=== PATIENT | male | born 1955 | race Two or more races ===

== ENCOUNTER → 2023-10-14 | Outpatient (CLI) | payer OTHER ==
[2023-10-14 08:50] LABS: Urine Bacteria None Seen /hpf (None Seen)
[2023-10-14 08:56] LABS: Basophils # (auto) 0.2 10 ^3/uL (0-0.2); Basophils % (auto) 1.9 % (0.0-2.0); Eosinophils # (auto) 0.4 10 ^3/uL (0-0.8); Eosinophils % (auto) 4.3 % (0.0-7.0); Hemoglobin 12.7 g/dL (13.5-17.5); Lymphocytes # (auto) 2.2 10 ^3/uL (0.4-5.4); Lymphocytes % (auto) 24.1 % (10.0-50.0); Mean Corpuscular Hemoglobin 27.3 pg (28.0-32.0); Mean Corpuscular Hgb Conc. 32.6 g/dL (32.0-36.0); Mean Corpuscular Volume 83.6 fL (80.0-100.0); Monocytes # (auto) 0.7 10 ^3/uL (0-1.3); Monocytes % (auto) 7.5 % (0.0-12.0); Neutrophils # (auto) 5.6 10 ^3/uL (1.6-8.6); Neutrophils % (auto) 62.2 % (37.0-80.0); Nucleated Red Blood Cells % 0.1 %; Red Blood Cells 4.66 10^6/uL (4.5-5.90); White Blood Cell 9.1 10^3/uL (4.4-10.8)
[2023-10-14 09:16] LABS: Urine Blood 1+ /uL (Negative); Urine Clarity Clear (Clear); Urine Color Light-Yellow (Yellow); Urine Hyaline Cast FEW /lpf (0 - 2); Urine Protein, UAD 3+ (Negative); Urine Specific Gravity 1.017 (1.001-1.035); Urine Urobilinogen Normal (Negative); Urine WBC 1 /hpf (0 - 3); Urine pH 6.5 (5.0-9.0)
[2023-10-14 09:30] LABS: Alanine Aminotransferase 15 U/L (7-40); Albumin 3.9 g/dL (3.2-4.8); Alkaline Phosphatase 81 U/L (46-116); Anion Gap 7 (5-15); Aspartate Aminotransferase 19 U/L (13-40); Bilirubin, Total 0.7 mg/dL (0.2-1.0); Blood Urea Nitrogen 17 mg/dL (9-23); Calcium 9.1 mg/dL (8.5-10.1); Carbon Dioxide 28 mmol/L (20-30); Chloride 106 mmol/L (98-107); Cholesterol 122 mg/dL (< 200); Glucose 175 mg/dL (74-106); HDL Cholesterol 38 mg/dL (40-59); LDL Cholesterol 64 mg/dL (< 100); Potassium 3.6 mmol/L (3.5-5.1); Sodium 141 mmol/L (136-145); Total Protein 6.5 g/dL (5.7-8.2); Triglycerides 84 mg/dL (< 150)
== END | disposition home or self-care (01) ==
LOC: LAB 08:37
PROVIDERS: ATTEND Nurse Practitioner
DX: Z12.5 Encounter for screening for malignant neoplasm of prostate (principal); I10 Essential (primary) hypertension; E78.5 Hyperlipidemia, unspecified; R73.9 Hyperglycemia, unspecified
CPT/HCPCS: 36415; 80053; 80061; 81001; 83036; 84153; 84443; 85025

== ENCOUNTER → 2023-12-23 | Outpatient (CLI) | payer OTHER | END | disposition home or self-care (01) | LOC: XYW 10:25 | PROVIDERS: ATTEND Student in an Organized Health Care Education/Training Program | DX: I08.3 Combined rheumatic disorders of mitral, aortic and tricuspid valves (principal); I10 Essential (primary) hypertension; E11.65 Type 2 diabetes mellitus with hyperglycemia; Z86.73 Personal history of transient ischemic attack (TIA), and cerebral infarction without residual deficits | CPT/HCPCS: 93306 ==

== ENCOUNTER 2024-02-04 11:41 | Emergency (ER) | payer OTHER ==
[~2024-02-04] VITALS: Ht 165.1 cm; Wt 65.0 kg
[2024-02-04] MEDS: NITROGLYCERIN 0.4 MG SL TAB SL ONE (12:44)
[2024-02-04 13:23] LABS: Basophils # (auto) 0.1 10 ^3/uL (0-0.2); Basophils % (auto) 1.3 % (0.0-2.0); Eosinophils # (auto) 0.4 10 ^3/uL (0-0.8); Eosinophils % (auto) 4.5 % (0.0-7.0); Hematocrit 39.2 % (41.0-53.0); Hemoglobin 13.1 g/dL (13.5-17.5); Lymphocytes # (auto) 2.4 10 ^3/uL (0.4-5.4); Mean Corpuscular Hgb Conc. 33.5 g/dL (32.0-36.0); Mean Corpuscular Volume 83.3 fL (80.0-100.0); Monocytes # (auto) 0.6 10 ^3/uL (0-1.3); Monocytes % (auto) 7.4 % (0.0-12.0); Neutrophils # (auto) 4.8 10 ^3/uL (1.6-8.6); Neutrophils % (auto) 57.8 % (37.0-80.0); Nucleated Red Blood Cells % 0.2 %; Platelet Count (auto) 264 10^3/uL (140-450); White Blood Cell 8.3 10^3/uL (4.4-10.8)
[2024-02-04 13:46] LABS: Alanine Aminotransferase 22 U/L (7-40); Albumin 3.8 g/dL (3.2-4.8); Alkaline Phosphatase 86 U/L (46-116); Anion Gap 8 (5-15); Aspartate Aminotransferase 16 U/L (13-40); BUN/Creatinine Ratio 16.2 (10.0-20.0); Blood Urea Nitrogen 25 mg/dL (9-23); Calcium 9.4 mg/dL (8.7-10.4); Carbon Dioxide 27 mmol/L (20-30); Chloride 106 mmol/L (98-107); Glucose 104 mg/dL (74-106); Potassium 4.2 mmol/L (3.5-5.1); Sodium 141 mmol/L (136-145)
[2024-02-04 13:47] LABS: Bilirubin, Total 0.6 mg/dL (0.2-1.0); Total Protein 6.4 g/dL (5.7-8.2)
[2024-02-04] MEDS: amLODIPine BESYLATE 5 MG TAB PO ONE (14:09)
[2024-02-04] MEDS: LISINOPRIL 20 MG TAB PO ONE (14:15)
[2024-02-04 17:25] VITALS: BP 141/68; PULSE 87; RESP 17; O2SAT 96
== END 2024-02-04 17:30 | disposition home or self-care (01) ==
LOC: ER 11:41
DX: I16.0 Hypertensive urgency (principal); I12.9 Hypertensive chronic kidney disease with stage 1 through stage 4 chronic kidney disease, or unspecified chronic kidney disease; N18.31 Chronic kidney disease, stage 3a; E11.9 Type 2 diabetes mellitus without complications; Z98.890 Other specified postprocedural states
CPT/HCPCS: 36415; 71045; 80053; 83880; 84484; 85025; 93005

== ENCOUNTER → 2024-02-04 | Outpatient (CLI) | payer OTHER ==
[~2024-02-04] VITALS: Ht 165.1 cm; Wt 63.5 kg
[~2024-02-04] MED LIST: NIFEdipine ER 30 MG TAB PO ONE
[2024-02-04] MEDS: ADENOSINE 53 MG in GIVE UN-DILUTED 0 ML IV STA (10:07)
[2024-02-04] MEDS: NIFEdipine ER 30 MG TAB PO ONE (10:40)
== END | disposition home or self-care (01) ==
LOC: XYW 08:54
PROVIDERS: ATTEND Student in an Organized Health Care Education/Training Program
DX: R94.31 Abnormal electrocardiogram [ECG] [EKG] (principal); E11.65 Type 2 diabetes mellitus with hyperglycemia; I10 Essential (primary) hypertension; I63.9 Cerebral infarction, unspecified
CPT/HCPCS: 78452; 93017; A9500; J0153

== ENCOUNTER 2024-06-17 10:03 | Inpatient (IN) | payer OTHER ==
[~2024-06-17] VITALS: Ht 165.1 cm; Wt 76.0 kg
[~2024-06-17 10:03] MED LIST changes: +AMLO1TAB22 PO; +ATOR20TA PO; +CARV25TA55 PO; +CYCL-839 PO; +LISI20TA56 PO; +METF-372 PO; +NIFE1TAB30 PO; -NIFEdipine ER 30 MG TAB PO ONE; +PANT40TA57 PO; +POM OP; +PRED1SUS4 RIGHTEYE
--- NOTE | 2024-06-17 10:38 | ED.PDOC ---
HPI (NEURO) HPI Comments 69 Y M with PMHX of CVA, HTN, HLD, and DM presents to the ED with CC of left sided numbness. Per patient's son, patient has been experiencing left sided numbness/weakness s/p fall x2days ago. Patient' s son relays, that patient does have a history of left a sided deficit following past CVA; however symptoms have significantly worsened. Patient denies headache, body-aches, right sided numbness, or nausea. Chief Complaint: Left Sided Weakness Time Seen by MD: 10:09 Primary Care Provider: JAYLEN Del Angel Notes: Nurses Notes, Medications, Allergies Information Source: Patient Mode of Arrival: Wheelchair Severity: Moderate Timing: Days Duration: Since onset Prehospital treatment: None Weakness Location: (L) Sided Numbness Location: (L) Sided Circumstances: Trauma Symptoms: Weakness, Numbness History of: CVA Associated Signs and Symptoms: Diarrhea, Weakness, Numbness Past Medical History PAST MEDICAL HISTORY: CVA, DM, High Lipids, HTN Surgical History (Other): left and right knee replacment Family History Family History: Reviewed,noncontributory to illness Social History Smoker: Non-Smoker Alcohol: Denies ETOH Use Drugs: Denies Drug Use Lives In: Home Constitutional: denies: chills, diaphoresis, fatigue, fever, malaise, sweats, weakness, others EENTM: denies: blurred vision, double vision, ear bleeding, ear discharge, ear drainage, ear pain, ear ringing, eye pain, eye redness, hearing loss, mouth pain, mouth swelling, nasal discharge, nose bleeding, nose congestion, nose pain, photophobia, tearing, throat pain, throat swelling, voice changes, others Respiratory: denies: cough, hemoptysis, orthopnea, SOB at rest, shortness of breath, SOB with excertion, stridor, wheezing, others Cardiovascular: denies: chest pain, dizzy spells, diaphoresis, Dyspnea on exertion, edema, irregular heart beat, left arm pain, lightheadedness, palpitations, PND, syncope, others Gastrointestinal: reports: diarrhea; denies: abdomen distended, abdominal pain, blood streaked bowels, constipated, dysphagia, difficulty swallowing, hematemesis, melena, nausea, poor appetite, poor fluid intake, rectal bleeding, rectal pain, vomiting, others Genitourinary: denies: burning, dysuria, flank pain, frequency, hematuria, incontinence, penile discharge, penile sore, pain, testicle pain, testicle swelling, urgency, others Neurological: reports: left sided numbness, left sided weakness; denies: dizziness, fainting, headache, numbness, paresthesia, pre-existing deficit, right sided numbness, right sided weakness, seizure, speech problems, tingling, tremors, weakness, others Musculoskeletal: denies: back pain, gout, joint pain, joint swelling, muscle pain, muscle stiffness, neck pain, others Integumetry: denies: bruises, change in color, change in hair/nails, dryness, laceration, lesions, lumps, rash, wounds, others Allergic/Immunocompromised: denies: Difficulty Healing, Frequent Infections, Hives, Itching, others Hematologic/Lymphatic: denies: anemia, blood clots, easy bleeding, easy bruising, swollen glands, others Psychiatric: denies: anxiety, bipolar disorder, depression, hopeless, panic disorder, schizophrenia, sleepless, suicidal, others All Other Systems: Reviewed and Negative Physical Exam General Appearance: Moderate Distress HEENT: Pale Conjuntivae (L), Pale Conjuntivae (R), Pharynx Normal, TMs Normal Neck: Full Range of Motion, Non-Tender, Normal, Normal Inspection Respiratory: Chest Non-Tender, Lungs Clear, No Accessory Muscle Use, No Respiratory Distress, Normal Breath Sounds Cardiovascular: No Edema, No JVD, No Murmur, No Gallop, Normal Peripheral Pulses, Regular Rate/Rhythm Breast Exam: Deferred Gastrointestinal: No Organomegaly, Non Tender, No Pulsatile Mass, Normal Bowel Sounds, Soft Genitalia: Deferred Pelvic: Deferred Rectal: Deferred Extremities: No calf tenderness, Normal capillary refill, Non-tender, No pedal edema Musculoskeletal : Apperance: Normal Neurologic: Alert, Motor Weakness (Left-sided weakness both upper and lower extremities), Normal Affect, Normal Mood, No Sensory Deficits Cerebellar Function: Unable to Test Reflexes: Normal Skin: Dry, Normal Color, Warm Lymphatic: No Adenopathy EKG EKG : Pulse Rate (adult): 89 Vest: Normal Cardiac Rhythm: NSR Block: None Hypertrophy: None ST: Normal Was a procedure done? Was a procedure done?: No Differential Diagnosis (SZ) Seizure: N/A CVA: Rodriguez's Palsy, CVA X-Ray, Labs, Meds, VS Vital Signs Date Time Temp Pulse Resp B/P (MAP) Pulse Ox O2 Delivery O2 Flow Rate FiO2 06/17/24 11:10 86 19 169/93 (118) 98 06/17/24 11:10 89 18 97 Room Air* 0 21 06/17/24 10:38 89 06/17/24 10:17 83 06/17/24 10:14 97.9 83 18 180/86 (117) 99 Lab Test 06/17/24 10:36 06/17/24 10:09 Range/Units White Blood Count 10.3 4.4-10.8 10^3/uL Red Blood Count 4.50 4.5-5.90 10^6/uL Hemoglobin 12.9 L 13.5-17.5 g/dL Hematocrit 38.0 L 41.0-53.0 % Mean Corpuscular Volume 84.5 80.0-100.0 fL Mean Corpuscular Hemoglobin 28.8 28.0-32.0 pg Mean Corpuscular Hemoglobin Concent 34.0 32.0-36.0 g/dL Red Cell Distribution Width 13.0 11.8-14.3 % Platelet Count 260 140-450 10^3/uL Mean Platelet Volume 10.2 6.9-10.8 fL Neutrophils (%) (Auto) 77.8 37.0-80.0 % Lymphocytes (%) (Auto) 14.4 10.0-50.0 % Monocytes (%) (Auto) 5.4 0.0-12.0 % Eosinophils (%) (Auto) 1.5 0.0-7.0 % Basophils (%) (Auto) 0.9 0.0-2.0 % Neutrophils # (Auto) 8.0 1.6-8.6 10 ^3/uL Lymphocytes # (Auto) 1.5 0.4-5.4 10 ^3/uL Monocytes # (Auto) 0.6 0-1.3 10 ^3/uL Eosinophils # (Auto) 0.2 0-0.8 10 ^3/uL Basophils # (Auto) 0.1 0-0.2 10 ^3/uL Nucleated Red Blood Cells 0.0 % Prothrombin Time 11.3 9.3-11.8 sec Prothrombin Time INR 1.07 0.9-1.15 Activated Partial Thromboplast Time 28.9 24.5-34.5 SEC Sodium Level 143 136-145 mmol/L Potassium Level 3.7 3.5-5.1 mmol/L Chloride Level 107 98-107 mmol/L Carbon Dioxide Level 29 20-31 mmol/L Anion Gap 7 5-15 Blood Urea Nitrogen 24 H 9-23 mg/dL Creatinine 2.37 H 0.700-1.30 mg/dL Glomerular Filtration Rate Calc 29 >90 mL/min BUN/Creatinine Ratio 10.1 10.0-20.0 Serum Glucose 112 H 74-106 mg/dL Calcium Level 9.6 8.7-10.4 mg/dL Magnesium Level 2.0 1.6-2.6 mg/dL Total Bilirubin 0.6 0.2-1.0 mg/dL Aspartate Amino Transferase (AST) 36 13-40 U/L Alanine Aminotransferase (ALT) 20 7-40 U/L Alkaline Phosphatase 92 46-116 U/L Troponin I High Sensitivity 74 *H </=54 ng/L B-Type Natriuretic Peptide Pending Total Protein 7.0 5.7-8.2 g/dL Albumin 4.1 3.2-4.8 g/dL POC Glucose 102 70-106 mg/dl CT HEAD CVA: FINDINGS: There is a moderate size area of hypodense changes in the medial leftt occipital and medial posterior temporal lobes with loss of fuentes-white matter differentiation. The findings are compatible with an age-indeterminate infarct, presumed to be acute to subacute. There is a chronic infarct extending from the right chapman radiata into the right basal ganglia. There also likely small chronic infarcts in the right and left posterior cerebellum. There are patchy hypodense changes in the supratentorial white matter compatible with chronic small-vessel ischemic changes. There is no evidence of acute intracranial hemorrhage, mass, mass effect midline shift. There is no hydrocephalus or extra-axial fluid collection. There is complete opacification of the right paranasal sinuses and right nasal cavity. There is also prominent retention cysts in the left maxillary sinus. The mastoid air cells are clear. The calvarium is intact. IMPRESSION: 1. Moderate size area of hypodense changes in the medial left temporal occipital lobes with loss of fuentes-white matter differentiation compatible with age- indeterminate infarct, presumed to be acute to subacute. There is no evidence of acute intracranial hemorrhage. 2. Chronic ischemic changes as described above. 3. Paranasal sinus disease. HS:Y ATED BY: MEHUL CALDWELL MD DICTATED DATE/TIME: 06/17/241040 SIGNED BY: MEHUL CALDWELL MD SIGNED DATE/TIME: 06/17/241040 CC: CXR: FINDINGS: Lines and Tubes: None Lungs: No focal consolidation. Pleura: No effusion. No pneumothorax. Cardiomediastinal contours: Unremarkable Bones: No acute osseous abnormality. IMPRESSION: No acute cardiopulmonary disease. ATED BY: PAOLO SAAVEDRA MD DICTATED DATE/TIME: 06/17/241042 SIGNED BY: PAOLO SAAVEDRA MD SIGNED DATE/TIME: 06/17/241042 CC: Upon arrival, the patient was evaluated by the neurologist. At this time we feel that this is a subacute CVA The patient was being given aspirin here in the emergency department's. Because of the creatinine, we are unable to do a CTA of neck and head. The patient was having an MRI done at this time. We did receive that Neurology consult. The patient denies any nausea, vomiting or diarrhea. The patient will be admitted to the hospitalist We did discuss the findings with the patient The CBC is within normal limits. The chemistry panel shows a creatinine that is elevated at 2.37 and a BUN of 24 The patient's troponin level is also elevated at 74 The patient was being admitted Images Reviewed?: Images reviewed and evaluated by me Time of 1ST Reevaluation: 11:51 Reevaluation 1ST: Unchanged Patient Education/Counseling: Diagnosis, Treatment Family Education/Counseling: Diagnosis, Treatment Departure 1 Departure Time of Disposition: 11:52 Impression: Primary Impression: CVA (cerebral vascular accident) Qualified Codes: I63.9 - Cerebral infarction, unspecified Additional Impressions: Elevated troponin CKD stage 3a, GFR 45-59 ml/min Disposition: 09 ADMITTED INPATIENT [facility]mit to: [facility] Condition: Fair Critical Care Note Critical Care Time?: Yes (45 min-critical care time only) Stability Stability form required: Yes Unstable for transfer: Telemetry monitoring (Telemetry monitoring required), ED Physician Assesment (Clinical assesment) Heart Score Heart Score: Heart Score Response (Comments) Value History N/A 0 EKG N/A 0 Age N/A 0 Risk Factors N/A 0 Troponin N/A 0 Total 0 I personally scribed for RYNE LEWIS MD ([email or web address]) on 06/17/24 at 10:38. Electronically submitted by Vane Brower ([email or web address]). I personally scribed for RYNE LEWIS MD ([email or web address]) on 06/17/24 at 10:55. Electronically submitted by Vane Brower ([email or web address]). I personally scribed for RYNE LEWIS MD ([email or web address]) on 06/17/24 at 10:56. Electronically submitted by Vane Brower ([email or web address]). I personally scribed for RYNE LEWIS MD ([email or web address]) on 06/17/24 at 10:57. Electronically submitted by Vane Brower ([email or web address]). RYNE LEWIS MD Jun 17, 2024 10:38
--- NOTE | 2024-06-17 10:44 | DVH ---
EXAM: CT STROKE CTH HISTORY: LEFT SIDED WEAKNESS COMPARISON: None TECHNIQUE: Axial images of the head were obtained and reformatted in coronal and sagittal planes. All CT scans at this medical facility are performed using dose modulation techniques as appropriate t o a performed exam including the following: Automated exposure control was utilized; adjustment of th e MA and/or KV according to patient size; and use of iterative reconstruction technique. CT Dose: CTDI volume is 61 mGy. Dose-length product is 1087 mGy*cm FINDINGS: There is a moderate size area of hypodense changes in the medial leftt occipital and medial posterior temporal lobes with loss of fuentes-white matter differentiation. The findings are compatible with an age-indeterminate infarct, presumed to be acute to subacute. There is a chronic infarct extending from the right chapman radiata into the right basal ganglia. Ther e also likely small chronic infarcts in the right and left posterior cerebellum. There are patchy hyp odense changes in the supratentorial white matter compatible with chronic small-vessel ischemic marquez es. There is no evidence of acute intracranial hemorrhage, mass, mass effect midline shift. There is no h ydrocephalus or extra-axial fluid collection. There is complete opacification of the right paranasal sinuses and right nasal cavity. There is also prominent retention cysts in the left maxillary sinus. The mastoid air cells are clear. The calvari um is intact. IMPRESSION: 1. Moderate size area of hypodense changes in the medial left temporal occipital lobes with loss of g ray-white matter differentiation compatible with age-indeterminate infarct, presumed to be acute to s ubacute. There is no evidence of acute intracranial hemorrhage. 2. Chronic ischemic changes as described above. 3. Paranasal sinus disease. HS:Y
--- NOTE | 2024-06-17 10:46 | DVH ---
CHEST RADIOGRAPH Indication: LEFT SIDED WEAKNESS Technique: Single frontal view of the chest was obtained Comparison: XY CHEST PORTABLE on DOS: 02/04/24 FINDINGS: Lines and Tubes: None Lungs: No focal consolidation. Pleura: No effusion. No pneumothorax. Cardiomediastinal contours: Unremarkable Bones: No acute osseous abnormality. IMPRESSION: No acute cardiopulmonary disease.
[2024-06-17 10:50] LABS: Basophils # (auto) 0.1 10 ^3/uL (0-0.2); Basophils % (auto) 0.9 % (0.0-2.0); Eosinophils # (auto) 0.2 10 ^3/uL (0-0.8); Eosinophils % (auto) 1.5 % (0.0-7.0); Hemoglobin 12.9 g/dL (13.5-17.5); Lymphocytes # (auto) 1.5 10 ^3/uL (0.4-5.4); Lymphocytes % (auto) 14.4 % (10.0-50.0); Mean Corpuscular Hemoglobin 28.8 pg (28.0-32.0); Mean Corpuscular Volume 84.5 fL (80.0-100.0); Monocytes # (auto) 0.6 10 ^3/uL (0-1.3); Monocytes % (auto) 5.4 % (0.0-12.0); Neutrophils % (auto) 77.8 % (37.0-80.0); Platelet Count (auto) 260 10^3/uL (140-450); White Blood Cell 10.3 10^3/uL (4.4-10.8)
--- NOTE | 2024-06-17 11:00 | ECG ---
[facility] Test Date: 2024-06-17 Test Time: 10:17:25 Pat Name: AUNDREA DE LA TORRE Department: ER Room: 0249T Gender: M [employer]: GP : 1955 Requested By: RYNE LEWIS Order Number: [id number] Reading MD: José Luis Wood Measurements Intervals [place] Rate: 83 P: 37 VA: 173 QRS: 20 QRSD: 122 T: -19 QT: 385 QTc: 453 Interpretive Statements Sinus rhythm IVCD, consider atypical RBBB Anteroseptal infarct, old Electronically Signed On 06-21-2024 15:35:03 PST by José Luis Wood Please click the below link to view image of tracing.
[2024-06-17 11:03] LABS: INR 1.07 (0.9-1.15); Partial Thromboplastin Time 28.9 SEC (24.5-34.5); Prothrombin Time 11.3 sec (9.3-11.8)
[2024-06-17 11:10] VITALS: PULSE 89; RESP 18; O2SAT 97
[2024-06-17 11:15] LABS: Alanine Aminotransferase 20 U/L (7-40); Albumin 4.1 g/dL (3.2-4.8); Alkaline Phosphatase 92 U/L (46-116); Anion Gap 7 (5-15); Aspartate Aminotransferase 36 U/L (13-40); BUN/Creatinine Ratio 10.1 (10.0-20.0); Bilirubin, Total 0.6 mg/dL (0.2-1.0); Calcium 9.6 mg/dL (8.7-10.4); Carbon Dioxide 29 mmol/L (20-31); Potassium 3.7 mmol/L (3.5-5.1); Sodium 143 mmol/L (136-145)
[2024-06-17 11:19] LABS: Blood Urea Nitrogen 24 mg/dL (9-23); Chloride 107 mmol/L (98-107); Glucose 112 mg/dL (74-106)
[2024-06-17] MEDS: ASPirin 81 mg TAB PO ONE (12:22)
[2024-06-17] MEDS: hydrALAZINE HCL 20 MG/ML VL IV ONE (12:23)
[2024-06-17] MEDS: hydrALAZINE HCL 20 MG/ML VL ONE (12:25)
--- NOTE | 2024-06-17 14:44 | DVH ---
PROCEDURE: MRI BRAIN HEAD WO CONTRAST INDICATION: CVA EXAM DATE: 06/17/2024 02:09 PM COMPARISON: None TECHNIQUE: MRI of the brain without intravenous contrast. FINDINGS: Large subacute left occipital and basal ganglia infarct. There is no evidence of acute intracranial hemorrhage, extra-axial collection, mass effect, midline s hift, herniation or hydrocephalus. The ventricles, sulci and cisterns appear age appropriate. [id number] changes of chronic microvascular ischemic disease. Scattered foci blooming artifact in the bilateral basal ganglia. The major vascular flow voids are present. Chronic frontal ethmoidal and maxillary sinus disease. The surrounding soft tissues and osseous stru ctures are unremarkable. IMPRESSION: 1. Large subacute left occipital infarct with a smaller focus of subacute ischemia in the left basal ganglia. No evidence of hemorrhagic complication at this time. Recommend clinical correlation and con tinued follow-up. [id number] changes chronic microvascular ischemic disease. Blooming artifact in the bilateral basal ganglia could be related to microangiopathy. Chronic severe pansinusitis. HS:Y
--- NOTE | 2024-06-17 15:06 | DVHINCON2 ---
Date of service: Jun 17, [address] Schwartz Reason for Consultation Stroke History of Present Illness Mr. Herminio Gale is a 69 years old right-handed gentleman with a history of hypertension, diabetes, dyslipidemia, chronic stroke with residual left-sided weakness, the patient was was brought to the [facility] on 06/17[facility]2024 with a chief company of left-sided numbness. At this time, the patient is awake, oriented to person, place, but is not able to provide history, the information is obtained from his son Juanito, his nurse and chart review Apparently the patient was has been doing well for about two month, he has progressive memory problems, gait disturbance, and he falls, before he came, the patient was more mentally altered, with right-sided numbness and weakness In 2021, when he was still in the [facility] [place], the patient was had stroke with left-sided weakness. [place] country, he was not able to walk, he was not on aspirin or other secondary stroke prevention. however gradually improved with physical therapy and he was able to walk with a walker again, and his mentation/memory was normal UDS, 06/17/2024: Negative Plasma alcohol, 06/17/2024: 3 Urinalysis, 06/17/2024: Unremarkable CBC, 06/17/2024: Unremarkable PTT/INR/PTT, 06/17/2024: 11.3/1.07/28.9 BUN/CR, 06/17/2024: 24/2.24 HGB A1c, 06/17/2024: 7 Liver function tests, 06/17/2024: Unremarkable TSH, 06/2024: 2.29 TG/HDL/LDL/HDL, 06/17/2024: 137/207/145/47 CT head, 06/17/2024: 1. Moderate size area of hypodense changes in the medial left temporal occipital lobes with loss of fuentes-white matter differentiation compatible with age-indeterminate infarct, presumed to be acute to subacute. There is no evidence of acute intracranial hemorrhage. 2. Chronic ischemic changes as described above. 3. Paranasal sinus disease (There is a chronic infarct extending from the right chapman radiata into the right basal ganglia. There also likely small chronic infarcts in the right and left posterior cerebellum.) MRI head, 06/17/2024: 1. Large subacute left occipital infarct with a smaller focus of subacute ischemia in the left basal ganglia. No evidence of hemorrhagic complication at this time. Recommend clinical correlation and continued follow- up. [id number]-oa-[id number] changes chronic microvascular ischemic disease. Blooming artifact in the bilateral basal ganglia could be related to microangiopathy. Chronic severe pansinusitis Past Medical History Hypertension, diabetes, dyslipidemia Past Surgical History Left and the right knee replacement Family History His son's not clear about his medical history, he heard about dementia Social History He does not smoke, no history of alcohol or recreational drug abuse Allergies: Coded Allergies: NO KNOWN ALLERGIES (Unverified , 02/04/24) Review of Systems As above, the other systems are negative Vital Signs Vital Signs Date Time Temp Pulse Resp B/P (MAP) Pulse Ox O2 Delivery O2 Flow Rate FiO2 06/17/24 13:54 98.0 98 19 195/92 (126) 98 98.0 06/17/24 11:10 Room Air* 0 21 Physical Exam GENERAL EXAM: General: the patient is well developed and nourished. No acute distress. HEENT: Normocephalic, neck is supple, no carotid bruits. No mass. RESPIRATORY: Normal respiratory effort with symmetrical lung expansion. Lungs clear to auscultation. CARDIOVASCULAR: Regular rate and rhythm with no murmurs. S1, S2. ABDOMEN: Soft, nontender, normal bowel sound NEUROLOGICAL: MENTAL STATUS: Awake and alert. Oriented to person, place SPEECH, LANGUAGE, HIGHER CORTICAL FUNCTION: no aphasia, he has dysathria. CRANIAL NERVES: #2: Questionable right hemianopsia #3,4,6: Pupils are equal, round and reactive. EOMs full and conjugate. #5: Facial sensation intact in all three divisions bilaterally. Mandibular strength intact. #7: Facial muscles symmetrical and strength intact. #8: Hearing grossly normal to voice. #9,10: Uvula and soft palate rise in the midline. Swallow and voice are normal. #11: Trapezius and sternomastoid strength intact bilaterally. #12: Tongue midline. No fasciculations or atrophy. SENSATION: Sensation to touch and pinprick is unremarkable MOTOR: Normal tone in the upper and lower extremity. Normal muscle bulk. No fasciculations. No abnormal movements or posturing. Muscle strength of the major groups in the upper extremities is 4/5. He moves the legs, right: 2/5, left: 3/5 REFLEXES: Deep tendon reflexes are symmetrical. No pathological reflexes. CEREBELLAR/COORDINATION: Deferred GAIT/STATION: deferred. Labs/Diagnostic Data Labs Test 06/17/24 12:35 06/17/24 10:36 06/17/24 10:09 Range/Units Troponin I High Sensitivity 68 *H </=54 ng/L White Blood Count 10.3 4.4-10.8 10^3/uL Red Blood Count 4.50 4.5-5.90 10^6/uL Hemoglobin 12.9 L 13.5-17.5 g/dL Hematocrit 38.0 L 41.0-53.0 % Mean Corpuscular Volume 84.5 80.0-100.0 fL Mean Corpuscular Hemoglobin 28.8 28.0-32.0 pg Mean Corpuscular Hemoglobin Concent 34.0 32.0-36.0 g/dL Red Cell Distribution Width 13.0 11.8-14.3 % Platelet Count 260 140-450 10^3/uL Mean Platelet Volume 10.2 6.9-10.8 fL Neutrophils (%) (Auto) 77.8 37.0-80.0 % Lymphocytes (%) (Auto) 14.4 10.0-50.0 % Monocytes (%) (Auto) 5.4 0.0-12.0 % Eosinophils (%) (Auto) 1.5 0.0-7.0 % Basophils (%) (Auto) 0.9 0.0-2.0 % Neutrophils # (Auto) 8.0 1.6-8.6 10 ^3/uL Lymphocytes # (Auto) 1.5 0.4-5.4 10 ^3/uL Monocytes # (Auto) 0.6 0-1.3 10 ^3/uL Eosinophils # (Auto) 0.2 0-0.8 10 ^3/uL Basophils # (Auto) 0.1 0-0.2 10 ^3/uL Nucleated Red Blood Cells 0.0 % Prothrombin Time 11.3 9.3-11.8 sec Prothrombin Time INR 1.07 0.9-1.15 Activated Partial Thromboplast Time 28.9 24.5-34.5 SEC Sodium Level 143 136-145 mmol/L Potassium Level 3.7 3.5-5.1 mmol/L Chloride Level 107 98-107 mmol/L Carbon Dioxide Level 29 20-31 mmol/L Anion Gap 7 5-15 Blood Urea Nitrogen 24 H 9-23 mg/dL Creatinine 2.37 H 0.700-1.30 mg/dL Glomerular Filtration Rate Calc 29 >90 mL/min BUN/Creatinine Ratio 10.1 10.0-20.0 Serum Glucose 112 H 74-106 mg/dL Calcium Level 9.6 8.7-10.4 mg/dL Magnesium Level 2.0 1.6-2.6 mg/dL Total Bilirubin 0.6 0.2-1.0 mg/dL Aspartate Amino Transferase (AST) 36 13-40 U/L Alanine Aminotransferase (ALT) 20 7-40 U/L Alkaline Phosphatase 92 46-116 U/L B-Type Natriuretic Peptide 545.06 0-100 pg/mL Total Protein 7.0 5.7-8.2 g/dL Albumin 4.1 3.2-4.8 g/dL POC Glucose 102 70-106 mg/dl Assessment Acute stroke with acute right-sided weakness, possible right homonymous hemianopsia Chronic stroke with residual left-sided weakness Altered mental status, cognitive dysfunction Metabolic encephalopathy Partial complex seizure Plan/Recommendation Monitoring Supportive treatment Telemetry Vitamin B12, folic acid EEG UMM Carotid Doppler Aspirin 81 mg daily Lipitor 80 mg daily DVT prophylaxis/Lovenox More recommendation per clinical course Prognosis: Poor This medical document was created using an electronic medical record system with [employer] dictation system. Although this document has been carefully reviewed, there may still be some phonetic and typographical errors. These areas are purely typographical due to imperfections of the software programs, and do not reflect any compromise in the patient's medical care. Plan discussed with: aSeid, Other SALOME OLMEDO MD Jun 17, 2024 15:06
[2024-06-17] MEDS ORDERED: NITROGLYCERIN 0.4 MG SL TAB SL PRN (15:45)
[2024-06-17] MEDS ORDERED: MORPHINE SULFATE INJ 2 MG/ml SYRG IV PRN (15:45)
[2024-06-17 16:06] LABS: Urine Bacteria None Seen /hpf (None Seen)
--- NOTE | 2024-06-17 16:11 | DVHHPRES ---
History of Present Illness Resident Creating Document: TAYLOR BROWN RESIDENT History of Present Illness Patient was a 59-year-old male with a past medical history of type 2 diabetes mellitus, hypertension, hyperlipidemia was brought to the ED with a chief complaint of right-sided weakness and altered level of consciousness. History was obtained from patient's son Raulito Durham who reports that patient has a history of stroke a year ago with residual left-sided weakness and since then he has been using the wheelchair for ambulation and has been getting physical thera py. He reports that the patient was at home with his mother while he was at work and on Saturday night patient fell out of the wheelchair and since then reportedly has had right-sided weakness with confusion. Son came back from work last night so that his father was more confused and in the morning he looked worse following which he was brought to the hospital for further evaluation. Past medical history: Stroke 1 year ago with residual left-sided weakness, hypertension, type 2 diabetes mellitus, hyperlipidemia Past surgical history: Bilateral total knee replacement Social history: Patient lives with family and is not reported to be smoking, using illicit drugs. Home medications: As per the records, carvedilol 25 mg b.i.d., nifedipine 60 mg q.d., lisinopril 20 mg q.d., atorvastatin 20 mg Review of Systems Review of Systems Patient was alert and oriented X 1 at the time of examination. Reported that he was confused and could not exactly remember what happened. Denies chest pain, shortness of breath Has mild abdominal pain but denies nausea, vomiting, diarrhea. Reports weakness in the right side of the body Allergies: Coded Allergies: NO KNOWN ALLERGIES (Unverified , 02/04/24) Medications Current Medications Medications Dose Ordered Sig/Nova Route Start Time Stop Time Status Last Admin Dose Admin Nitroglycerin 0.4 mg Q5MINP PRN SL 06/17/24 15:45 Morphine Sulfate 2 mg Q30M PRN IV 06/17/24 15:45 Aspirin 81 mg DAILY PO 06/18/24 10:00 Atorvastatin Calcium 80 mg HS PO 06/17/24 22:00 Exam Vital Signs Vital Signs Date Time Temp Pulse Resp B/P (MAP) Pulse Ox O2 Delivery O2 Flow Rate FiO2 06/17/24 13:54 98.0 98 19 195/92 (126) 98 98.0 06/17/24 11:10 Room Air* 0 21 Exam Physical Examination Constitutional: Patient alert and oriented x1 and does not appear to be in any acute distress. Gen - no pallor, no icterus, no cyanosis, no clubbing, no LAD, 2+ edema in both the feet Skin - Patients skin is warm and dry. HEENT - normocephalic, atraumatic, moist mucous membranes. Neck - full ROM, no LAD, no JVD Pulmonary - B/L vesicular breath sounds. no crackles , no wheezing, no stridor. cardiovascular - normal S1,S2 heard. no murmurs heard. GI - soft abdomen. no hepatospleenomegaly. Bowel sounds normoactive Neurological - Right upper extremity strength 4/5, left upper extremity strength 4/5, right lower extremity strength 3/5, left lower extremity strength 4/5, no sensory deficiets. - limited exam finding as the patient was confused Cranial nerve 2- visual acuity preserved, no blurred vision reported Cranial nerve 3, 4, 6- extraocular movements within normal range Cranial nerve 5- facial sensation intact, jaw of opening normal Cranial nerve 7- no facial droop, , normal eye closing, Cranial nerve 8- hearing normal Cranial nerve 12- no tongue deviation Labs/Xrays Labs Test 06/17/24 16:04 06/17/24 14:45 06/17/24 10:36 06/17/24 10:09 Range/Units Troponin I High Sensitivity 67 *H </=54 ng/L White Blood Count 10.3 4.4-10.8 10^3/uL Red Blood Count 4.50 4.5-5.90 10^6/uL Hemoglobin 12.9 L 13.5-17.5 g/dL Hematocrit 38.0 L 41.0-53.0 % Mean Corpuscular Volume 84.5 80.0-100.0 fL Mean Corpuscular Hemoglobin 28.8 28.0-32.0 pg Mean Corpuscular Hemoglobin Concent 34.0 32.0-36.0 g/dL Red Cell Distribution Width 13.0 11.8-14.3 % Platelet Count 260 140-450 10^3/uL Mean Platelet Volume 10.2 6.9-10.8 fL Neutrophils (%) (Auto) 77.8 37.0-80.0 % Lymphocytes (%) (Auto) 14.4 10.0-50.0 % Monocytes (%) (Auto) 5.4 0.0-12.0 % Eosinophils (%) (Auto) 1.5 0.0-7.0 % Basophils (%) (Auto) 0.9 0.0-2.0 % Neutrophils # (Auto) 8.0 1.6-8.6 10 ^3/uL Lymphocytes # (Auto) 1.5 0.4-5.4 10 ^3/uL Monocytes # (Auto) 0.6 0-1.3 10 ^3/uL Eosinophils # (Auto) 0.2 0-0.8 10 ^3/uL Basophils # (Auto) 0.1 0-0.2 10 ^3/uL Nucleated Red Blood Cells 0.0 % Prothrombin Time 11.3 9.3-11.8 sec Prothrombin Time INR 1.07 0.9-1.15 Activated Partial Thromboplast Time 28.9 24.5-34.5 SEC Sodium Level 143 136-145 mmol/L Potassium Level 3.7 3.5-5.1 mmol/L Chloride Level 107 98-107 mmol/L Carbon Dioxide Level 29 20-31 mmol/L Anion Gap 7 5-15 Blood Urea Nitrogen 24 H 9-23 mg/dL Creatinine 2.37 H 0.700-1.30 mg/dL Glomerular Filtration Rate Calc 29 >90 mL/min BUN/Creatinine Ratio 10.1 10.0-20.0 Serum Glucose 112 H 74-106 mg/dL Calcium Level 9.6 8.7-10.4 mg/dL Magnesium Level 2.0 1.6-2.6 mg/dL Total Bilirubin 0.6 0.2-1.0 mg/dL Aspartate Amino Transferase (AST) 36 13-40 U/L Alanine Aminotransferase (ALT) 20 7-40 U/L Alkaline Phosphatase 92 46-116 U/L B-Type Natriuretic Peptide 545.06 0-100 pg/mL Total Protein 7.0 5.7-8.2 g/dL Albumin 4.1 3.2-4.8 g/dL POC Glucose 102 70-106 mg/dl Assessment/Plan Assessment/Plan Acute ischemic stroke left occipital Right-sided weakness CT head without contrast showed 1.Moderate size area of hypodense changes in the medial left temporal occipital lobes with loss of fuentes-white matter differentiation compatible with age- indeterminate infarct, presumed to be acute to subacute. There is no evidence of acute intracranial hemorrhage. 2.chronic infarct extending from the right chapman radiata into the right basal ganglia Brain MRI showed Large subacute left occipital infarct with a smaller focus of subacute ischemia in the left basal ganglia. No evidence of hemorrhagic complication at this time. Huwk-yc-qsrsmead changes chronic microvascular ischemic disease. Blooming artifact in the bilateral basal ganglia could be related to microangiopathy - aspirin 81 mg - stroke beyond the window period - atorvastatin 80 mg - CT angio head and neck may be done, waiting for Neurology recommendation. - echo with a bubble study pending Permissive hypertension ? Uncontrolled hypertension NSTEMI likely type 2 ?Acute exacerbation of heart failure with preserved ejection fraction - ECG showed no acute ST segment or T-wave changes - troponins trended 74-> 68-> 67 - started nifedipine 60 mg and carvedilol 12.5 mg b.i.d. - goal blood pressure SBP<= 160 mmHg Uncontrolled type 2 diabetes mellitus HbA1c 7% - blood glucose currently stable Dyslipidemia On atorvastatin 80 mg HS ELLIE on CKD likely hemodynamically mediated d/t VMN - urine sodium, urine creatinine pending - blood pressure control Hypokalemia Replaced Goals of care discussed with the patient and the son RAULITO for over 31 minutes. Full code Plan discussed with Dr. Carter Plan discussed with: Patient, Son (raulito durham) My Orders Orders - TAYLOR BROWN RESIDENT Procedure Category Date Status Time Admit ADMIT 06/17/24 Transmitted 15:36 Nitroglycerin PHA 06/17/24 In Process Sublingual (Ntrostat 15:45 Morphine Sulfate PHA 06/17/24 In Process Injection 15:45 Oxygen By Nasal RT 06/17/24 Transmitted Cannula 15:36 Stat Ekg For Chest HAYDEE 06/17/24 In Process Pain 15:36 Notify Md Of Changes HAYDEE 06/17/24 In Process From Base 15:36 Outside Plant Cable Engineer For HAYDEE 06/17/24 In Process 24 Hours 15:36 Emergency Dysrhythmia HAYDEE 06/17/24 In Process Protocol 15:36 Comprehensive LAB 06/17/24 Logged Metabolic Panel 15:36 Thyroid Stimulating LAB 06/17/24 Logged Hormone 15:36 Echo 2d Mode Cardiac US 06/17/24 Logged DOP 15:36 Bilat Low Ext Art US 06/17/24 Logged Duplex 15:36 Hemoglobin A1c LAB 06/17/24 Logged 15:36 Lipid Panel LAB 06/17/24 Logged 15:36 Aspirin Tablet PHA 06/18/24 In Process 10:00 Atorvastatin (Lipitor) PHA 06/17/24 In Process 22:00 Urinalysis LAB 06/17/24 In Process 15:36 Drug Screen LAB 06/17/24 In Process 15:36 Blood Alcohol LAB 06/17/24 Logged 15:36 Date of Service: Jun 17, 2024 Billing Provider: PAZ CARTER MD Common Visit Codes: [id number] CARE 30-74 MIN Coding Comment Comment 69 M with HTN, IDDM, 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 Patient fell 2 days [employer]EARCH [employer] and worsening mental since 12 hours. NIHSS 5, 2 for RLE, 1 for LLE, 2 for orientation. Non compliant with medication, no tobacco or drug use. Baseline ambulating with wheelchair. Also have worsening memory since last stroke. Collaterals from son. Vitals on admission for elevated BP. Labs significant for elevated creatinine, urine protein, hypokalemia, troponin elevation. CT head with subacute L occipital stroke. MRI with subacute L occipital stroke and blooming acute b/l basal ganglia hyperdensity. Physical exam Alert, oriented x2 PERRLA, EOM normal tongue midline, face symmetrical Clear breath sounds S1 S2 RRR no murmur Abdomen soft nontender No LE edema UE strength equal b/l LE strength diminished R>L Sensory intact to touch Labs imaging and ekg reviewed Stroke code note reviewed Assessment and plan Acute L basal ganglia ischemic stroke, out of window for TPA/thrombectomy Subacute R occipital ischemic stroke Hypertension vascular dementia? ELLIE on CKD likely 2/2 DM/HTN IDDM Type 2 RI demand ischemia 2/2 HTN Gait disturbance Admit to telemetry neurocheck per protocol permissive HTN 48 hours, keep BP <220/120 restart oral home antihtn, titrate up slowly avoid hypotension can start genaro/arb tomorrow echo with bubble secondary stroke prevention with asa and high intensity statin Lantus + ISS + fs x4 SENIOR ARCHITECT eval PT eval resume diet neuro consult A1c, lipid profile, TSH trend cr, renal US diet cardiac, diabetic, renal dvt ppx lovenox 60 minutes critical care time spent TAYLOR BROWN RESIDENT Jun 17, 2024 16:11 PAZ CARTER MD Jun 17, 2024 22:38
[2024-06-17 16:20] LABS: Urine Bacteria None Seen /hpf (None Seen); Urine Blood 1+ /uL (Negative); Urine Clarity Clear (Clear); Urine Color Light-Yellow (Yellow); Urine Protein, UAD 3+ (Negative); Urine Specific Gravity 1.011 (1.001-1.035); Urine Squamous Epithelial Cell None Seen /hpf (<5); Urine Urobilinogen Normal (Negative); Urine WBC <1 /hpf (0 - 3); Urine pH 7.5 (5.0-9.0)
[2024-06-17 16:40] LABS: Amphetamine Screen, Urine Neg (NEGATIVE); Barbiturate Scree,Urine Neg (NEGATIVE); Benzodiazephine Screen, Urine Neg (NEGATIVE); Cannabinoid Screen, Urine Neg (NEGATIVE); Cocaine Screen, Urine Neg (NEGATIVE); Opiate Scree,Urine Neg (NEGATIVE); Phencyclidine Screen, Urine Neg (NEGATIVE)
[2024-06-17 16:48] LABS: Urine Blood 1+ /uL (Negative); Urine Clarity Clear (Clear); Urine Color Light-Yellow (Yellow); Urine Protein, UAD 2+ (Negative); Urine Specific Gravity 1.011 (1.001-1.035); Urine Squamous Epithelial Cell None Seen /hpf (<5); Urine Urobilinogen Normal (Negative); Urine WBC <1 /hpf (0 - 3); Urine pH 7.5 (5.0-9.0)
[2024-06-17 16:54] LABS: Triglycerides 137 mg/dL (< 150)
[2024-06-17 16:56] LABS: HDL Cholesterol 47 mg/dL (40-59)
[2024-06-17 16:58] LABS: Alanine Aminotransferase 18 U/L (7-40); Albumin 3.7 g/dL (3.2-4.8); Alkaline Phosphatase 83 U/L (46-116); Anion Gap 9 (5-15); Aspartate Aminotransferase 32 U/L (13-40); BUN/Creatinine Ratio 10.7 (10.0-20.0); Bilirubin, Total 0.5 mg/dL (0.2-1.0); Calcium 9.1 mg/dL (8.7-10.4); Carbon Dioxide 25 mmol/L (20-31); Glucose 96 mg/dL (74-106); Sodium 143 mmol/L (136-145)
[2024-06-17 16:59] LABS: Total Protein 6.3 g/dL (5.7-8.2)
[2024-06-17 17:00] LABS: Blood Alcohol < 3.0 mg/dL (<10); Cholesterol 207 mg/dL (< 200); LDL Cholesterol 145 mg/dL (< 100)
[2024-06-17 17:01] LABS: Blood Urea Nitrogen 24 mg/dL (9-23); Chloride 109 mmol/L (98-107); Potassium 3.3 mmol/L (3.5-5.1)
--- NOTE | 2024-06-17 17:03 | DVH ---
EXAM: US BILAT LOW EXT ART DUPLEX HISTORY: suspected PAD COMPARISON: None TECHNIQUE: Real-time grayscale and color Doppler images of the bilateral lower extremities were obta ined with spectral waveform analysis. Findings: Arterial peak systolic velocities reported in units of centimeters per second (cm/sec): Right side: Common femoral - 179 Profunda - 81 Proximal SFA - 108 Mid SFA - 124 Distal SFA - 93 Popliteal - 87 Anterior tibial - 128 Posterior tibial - 50 Dorsalis pedis - 86 Diffuse triphasic waveforms except for the anterior tibial, posterior tibial and dorsalis pedis arter ies which are monophasic. Left side: Common femoral - 148 Profunda - 107 Proximal SFA - 158 Mid SFA - 76 Distal SFA - 78 Popliteal - 115 Anterior tibial - 35 Posterior tibial - 50 Dorsalis pedis - 43 Diffuse triphasic and biphasic waveforms except for the anterior tibial, posterior tibial and dorsali s pedis arteries which are monophasic. IMPRESSION: No evidence of hemodynamically significant stenosis throughout the bilateral lower extremity arterial systems. Velocity ratio Percentage stenosis <1.5:1 Normal 1.5-2:1 25-50% 2-4:1 50-75% No flow Occluded
[2024-06-17] MEDS: NIFEdipine ER 30 MG TAB PO ONE (17:51)
[2024-06-17] MEDS: cloNIDine HCL 0.1 MG TAB PO ONE (17:52)
[2024-06-17] MEDS: hydrALAZINE HCL 20 MG/ML VL IV PRN (19:07)
[2024-06-17 19:20] VITALS: PULSE 96; RESP 22; O2SAT 96
[2024-06-17 20:06] LABS: Creatinine, Urine 51.06 mg/dL (30.0-125.0)
[2024-06-17 20:09] LABS: Urine Protein/Creatinine Ratio 6.55
[2024-06-17 20:10] LABS: Protein, Urine 334.4 mg/dL (1-14)
[2024-06-17] MEDS: POTASSIUM EFFERVESENT TAB 25 MEQ PO ONE (20:28)
[2024-06-17] MEDS: CARVEDILOL 12.5 MG TAB PO SCH (22:39)
[2024-06-17] MEDS: ATORVASTATIN 20 MG TAB PO SCH (22:39)
--- NOTE | 2024-06-17 22:41 | DVH ---
Carotid Duplex Clinical History: cva Comparison: None Technique: Duplex Doppler evaluation of the extracranial carotid and vertebral arteries including color Doppler and spectral/pulsed waveform analysis was performed. Findings: RIGHT SIDE: The peak systolic velocities are 52 cm/s in the CCA, 78 cm/s in the ICA. The ICA/CCA ratio is 1.5. The external carotid artery is patent with peak systolic velocity of 91 cm/s proximally. There is appropriate antegrade flow in the right vertebral artery. LEFT SIDE: The peak systolic velocities are 86 cm/s in the CCA, 75 cm/s in the ICA. The ICA/CCA ratio is 0.9. The external carotid artery is patent with peak systolic velocity of 161 cm/s proximally. There is appropriate antegrade flow in the left vertebral artery. IMPRESSION: 1. Less than 50% stenosis of the right internal carotid artery. 2. Less than 50% stenosis of the left internal carotid artery. 3. High-grade stenosis of the left external carotid artery. Reference: Radiology 2003; 229:340-346 Normal ICA PSV is <125 cm/sec and no plaque or intimal thickening is visible sonographically additional criteria include ICA/CCA PSV ratio <2.0 and ICA EDV <40 cm/sec <50% ICA stenosis ICA PSV is <125 cm/sec and plaque or intimal thickening is visible sonographically additional criteria include ICA/CCA PSV ratio <2.0 and ICA EDV <40 cm/sec 50-69% ICA stenosis ICA PSV is 125-230 cm/sec and plaque is visible sonographically additional criteria include ICA/CCA PSV ratio of 2.0-4.0 and ICA EDV of 40-100 cm/sec 70% ICA stenosis but less than near occlusion ICA PSV is >230 cm/sec and visible plaque and luminal narrowing are seen at fuentes-scale and color Dopp ler ultrasound (the higher the Doppler parameters lie above the threshold of 230 cm/sec, the greater the likelihood of severe disease) additional criteria include ICA/CCA PSV ratio >4 and ICA EDV >100 cm/sec
[2024-06-17 22:44] LABS: Folate (Folic Acid) 12.74 ng/mL (>5.38)
[2024-06-18] MEDS ORDERED: hydrALAZINE HCL 20 MG/ML VL IV PRN ×2
[2024-06-18 07:10] LABS: Basophils # (auto) 0.1 10 ^3/uL (0-0.2); Basophils % (auto) 0.9 % (0.0-2.0); Eosinophils # (auto) 0.1 10 ^3/uL (0-0.8); Eosinophils % (auto) 0.7 % (0.0-7.0); Hematocrit 36.5 % (41.0-53.0); Hemoglobin 12.2 g/dL (13.5-17.5); Lymphocytes # (auto) 1.5 10 ^3/uL (0.4-5.4); Lymphocytes % (auto) 14.1 % (10.0-50.0); Mean Corpuscular Hemoglobin 28.5 pg (28.0-32.0); Mean Corpuscular Hgb Conc. 33.4 g/dL (32.0-36.0); Mean Corpuscular Volume 85.2 fL (80.0-100.0); Monocytes # (auto) 0.6 10 ^3/uL (0-1.3); Monocytes % (auto) 6.1 % (0.0-12.0); Neutrophils # (auto) 8.1 10 ^3/uL (1.6-8.6); Neutrophils % (auto) 78.2 % (37.0-80.0); Nucleated Red Blood Cells % 0.1 %; Platelet Count (auto) 241 10^3/uL (140-450); Red Blood Cells 4.28 10^6/uL (4.5-5.90); Red Cell Distribution Width 13.4 % (11.8-14.3); White Blood Cell 10.3 10^3/uL (4.4-10.8)
[2024-06-18 07:22] LABS: Sodium 143 mmol/L (136-145)
[2024-06-18 07:23] LABS: Anion Gap 10 (5-15); Carbon Dioxide 25 mmol/L (20-31)
[2024-06-18 07:24] LABS: Calcium 9.1 mg/dL (8.7-10.4)
[2024-06-18 07:28] LABS: BUN/Creatinine Ratio 10.7 (10.0-20.0)
[2024-06-18 07:32] LABS: Blood Urea Nitrogen 25 mg/dL (9-23); Chloride 108 mmol/L (98-107); Glucose 113 mg/dL (74-106)
[2024-06-18 07:55] VITALS: PULSE 81; RESP 15; O2SAT 96
[2024-06-18] MEDS ORDERED: DEXTROSE (50%) 50ML SYRG IV PRN ×2 (09:00→12:30)
--- NOTE | 2024-06-18 09:03 | DVHSR ---
APPROVED REPORT EXAM: Two-dimensional and M-mode echocardiogram with Doppler, color Doppler and Bubble Study. Blood Pressure: 195/92 mmHg INDICATION Acute ischemic stroke RISK FACTORS Height: 5' 5", Weight: 160 DIMENSIONS LVDd4.9 (3.8-5.7cm)LA (2D)4.4 (1.9-4.0cm)Aortic Root3.2 (2.0-3.7cm) LVDs3.5 (2.5-4.0cm)LA (MM) (1.9-4.0cm)Aortic Cusp Exc1.9 (1.5-2.0cm) EF (%) 56.0 (55-70%)Rt. Atrium4.7 (1.9-4.0cm)Asc. Aorta cm IVSd1.3 (0.7-1.1cm)RV (D) (1.8-2.4cm) PWd1.3 (0.7-1.1cm) Mitral Valve MitralMitral Stenosis E wave1.00m/sMV Mean GR.mmHg A wave1.30m/sMV Peak GR.mmHg E/A ratio0.82D MVAcm2 Aortic Valve Aortic ValveAortic Stenosis V11.00m/Néstor Mean GR.7mmHg V21.80m/Néstor Peak GR.14mmHg LVOT Diameter2.3 (1.8-2.4cm)Doppler AVA2.31cm2 AI P 1/2 Kjtk713.22ms Pulmonic Valve V20.90m/s LEFT VENTRICLE The left ventricle is of normal size. Wall thickness is mildly increased. Ejection fraction is norm al and is estimated at 60%. There is no regional wall motion abnormalities. There is grade II diast olic dysfunction with evidence of elevated left-sided filling pressure. RIGHT VENTRICLE The right ventricle is of normal size. The systolic function is normal. ATRIA The left atrium is moderately dilated in size. The right atrium is moderately dilated in size. The intra-atrial septum is intact. No evidence of shunting based on bubble study. MITRAL VALVE Normal structure and function. There is mild mitral regurgitation. PULMONIC VALVE Likely normal. TRICUSPID VALVE Normal structure and function. There is mild tricuspid regurgitation. PA systolic pressure is not a dequately estimated. AORTIC VALVE Normal structure and function. GREAT VESSELS The aortic root is of normal size. PERICARDIAL EFFUSION There is no pericardial effusion. IVC is not visualized. Conclusion Normal left ventricular size and systolic function. Mild concentric left ventricular hypertrophy with grade II diastolic dysfunction. Normal right ventricular size and systolic function. No hemodynamically significant valvular disease. No evidence of shunting based on bubble study. PA systolic pressure is not adequately estimated.
--- NOTE | 2024-06-18 09:20 | DVHPN2 ---
Progress Note - Dictate Date Seen: Jun 18, 2024 Medical Necessity Reason Pt with a Central, PICC or Fol: No Subjective Mr. Herminio Gale is a 69 years old right-handed gentleman with a history of hypertension, diabetes, dyslipidemia, chronic stroke with residual left-sided weakness, the patient was was brought to the [facility] on 06/17/2024 with a chief company of left-sided numbness. I have seen and examined the patient, I have talked to his nurse, he is doing better, awake, oriented x2, more cooperative, he moves the extremities better than yesterday, hard to tell if there huvz-ye-htno differences UDS, 06/17/2024: Negative Plasma alcohol, 06/17/2024: 3 Urinalysis, 06/17/2024: Unremarkable CBC, 06/17/2024: Unremarkable PTT/INR/PTT, 06/17/2024: 11.3/1.07/28.9 BUN/CR, 06/17/2024: 24/2.24, 06/08/2024: 25/2.34 HGB A1c, 06/17/2024: 7 Liver function tests, 06/17/2024: Unremarkable Vitamin B12, 06/17/2024: 715 Folic acid, 06/17/2024: 12.74 TSH, 06/2024: 2.29 TG/HDL/LDL/HDL, 06/17/2024: 137/207/145/47 Echocardiogram, 06/18/2024: Normal left ventricular size and systolic function. Mild concentric left ventricular hypertrophy with grade II diastolic dysfunction. Normal right ventricular size and systolic function. No hemodynamically significant valvular disease. No evidence of shunting based on bubble study. PA systolic pressure is not adequately estimated Carotid Doppler, 06/17/2024: 1. Less than 50% stenosis of the right internal carotid artery. 2. Less than 50% stenosis of the left internal carotid artery. 3. High-grade stenosis of the left external carotid artery. CT head, 06/17/2024: 1. Moderate size area of hypodense changes in the medial left temporal occipital lobes with loss of fuentes-white matter differentiation compatible with age-indeterminate infarct, presumed to be acute to subacute. There is no evidence of acute intracranial hemorrhage. 2. Chronic ischemic changes as described above. 3. Paranasal sinus disease (There is a chronic infarct extending from the right chapman radiata into the right basal ganglia. There also likely small chronic infarcts in the right and left posterior cerebellum.) MRI head, 06/17/2024: 1. Large subacute left occipital infarct with a smaller focus of subacute ischemia in the left basal ganglia. No evidence of hemorrhagic complication at this time. Recommend clinical correlation and continued follow- up. [id number] changes chronic microvascular ischemic disease. Blooming artifact in the bilateral basal ganglia could be related to microangiopathy. Chronic severe pansinusitis vital signs Vital Sign Date Time Temp Pulse Resp B/P (MAP) Pulse Ox O2 Delivery O2 Flow Rate FiO2 06/18/24 08:00 81 17 152/48 (82) 96 06/18/24 07:55 Room Air* 0 21 06/18/24 07:55 98.4 98.4 Total Intake and Output 06/17/24 06/17/24 06/18/24 15:00 23:00 07:00 Intake Total 240 ml Output Total 800 ml Balance -560 ml medications Current Medications Medications Dose Ordered Sig/Nova Route Start Time Stop Time Status Last Admin Dose Admin Morphine Sulfate 2 mg Q30M PRN IV 06/17/24 15:45 Aspirin 81 mg DAILY PO 06/18/24 10:00 Atorvastatin Calcium 80 mg HS PO 06/17/24 22:00 06/17/24 22:39 80 MG Carvedilol 12.5 mg Q12HR PO 06/17/24 22:00 06/17/24 22:39 12.5 MG Enoxaparin Sodium 40 mg DAILY SC 06/18/24 10:00 UNV Diagnostic Test (Pha) 1 strip Q6HR 06/18/24 12:00 Insulin Human Regular Q6HR SC 06/18/24 12:00 Dextrose 50 ml UD PRN IV 06/18/24 09:00 Enoxaparin Sodium 30 mg DAILY SC 06/18/24 10:00 objective General: the patient is well developed and nourished. No acute distress. MENTAL STATUS: Awake and alert. Oriented to person, place SPEECH, LANGUAGE, HIGHER CORTICAL FUNCTION: no aphasia, he has dysathria. CRANIAL NERVES: Questionable right hemianopsia. Pupils are equal, round and reactive. EOMs full and conjugate. Facial sensation intact in all three divisions bilaterally. Mandibular strength intact. Facial muscles symmetrical and strength intact. SENSATION: Sensation to touch and pinprick is unremarkable MOTOR: Normal tone in the upper and lower extremity. Normal muscle bulk. No fasciculations. No abnormal movements or posturing. Muscle strength of the major groups in the upper extremities is 4/5. The lower extremity is 4/5 REFLEXES: Deep tendon reflexes are symmetrical. No pathological reflexes. CEREBELLAR/COORDINATION: Deferred GAIT/STATION: deferred laboratory and microbiology Laboratory Tests 06/18/24 06:17 Test 06/18/24 06:17 Range/Units Serum Glucose 113 H 74-106 mg/dL Problem List Acute stroke with acute right-sided weakness, possible right homonymous hemianopsia Chronic stroke with residual left-sided weakness Altered mental status, cognitive dysfunction Metabolic encephalopathy Partial complex seizure Assessment/Plan Monitoring Supportive treatment Telemetry EEG UMM Carotid Doppler Aspirin 81 mg daily Lipitor 80 mg daily DVT prophylaxis/Lovenox More recommendation per clinical course Prognosis: Poor This medical document was created using an electronic medical record system with [employer] computerized dictation system. Although this document has been carefully reviewed, there may still be some phonetic and typographical errors. These areas are purely typographical due to imperfections of the software programs, and do not reflect any compromise in the patient's medical care. Prognosis poor Plan discussed with: Other Total Time (mins): 35 SALOME OLMEDO MD Jun 18, 2024 09:20
[2024-06-18] MEDS ORDERED: ENOXAPARIN SOD 40 MG/0.4 ML SYRINGE SC SCH (10:00)
[2024-06-18] MEDS ORDERED: NIFEdipine ER 30 MG TAB PO SCH (10:00)
[2024-06-18] MEDS: ENOXAPARIN SOD 30 MG/0.3 ML SYRINGE SC SCH (10:27)
[2024-06-18] MEDS: ASPirin 81 mg TAB PO SCH (10:28)
--- NOTE | 2024-06-18 11:43 | DVHINCON2 ---
Date Seen: Jun 18, 2024 Referring Physician MD Puneet Reason for Consultation UMM History of Present Illness This is a 69-year-old Sudanese-speaking mostly male who presented to the emergency room with a chief complaint of left-sided numbness. At time of assessment, the patient denied any neurological symptoms however he did complain of generalized abdominal pain associated with nausea. He underwent a brain MRI revealing a large subacute left occipital infarct. Neurology team requesting a transesophageal echocardiogram to rule out cardioembolic source. He underwent a 12 lead electrocardiogram revealing a sinus rhythm with nonspecific lateral ST depression and inferior wall T-wave inversion. Significant medical history includes history of CVA a year ago, right eye blindness status post CVA, seh-dhssutk-sjlvskgsx diabetes mellitus, hypertension, and dyslipidemia. Past Medical History Past medical history reviewed. No other significant than mentioned above. Past Surgical History Bilateral total knee replacement Family History Family history reviewed. Social History Denies the use of illicit drugs, alcohol, or tobacco use. Allergies: Coded Allergies: NO KNOWN ALLERGIES (Unverified , 02/04/24) Home Meds Home medications reviewed. Current Medications Current Medications Medications (Trade) Dose Ordered Sig/Nova Route PRN Reason Start Time Stop Time Status Last Admin Nitroglycerin (Ntrostat Sublingual) 0.4 mg Q5MINP PRN SL FOR CHEST PAIN 06/17/24 15:45 06/18/24 08:17 DC Morphine Sulfate 2 mg Q30M PRN IV FOR CHEST PAIN 06/17/24 15:45 Aspirin 81 mg DAILY PO 06/18/24 10:00 06/18/24 10:28 Atorvastatin Calcium (Lipitor) 80 mg HS PO 06/17/24 22:00 06/17/24 22:39 Nifedipine (Procardia Xl (Time-Release)) 60 mg DAILY PO 06/18/24 10:00 06/18/24 08:17 DC Hydralazine HCl (Apresoline Injection) 10 mg Q6HR PRN IV SBP>160 06/18/24 00:00 06/17/24 19:17 DC 06/17/24 19:07 Carvedilol (Coreg Tablet) 12.5 mg Q12HR PO 06/17/24 22:00 06/18/24 10:28 Hydralazine HCl (Apresoline Injection) 10 mg Q6HR PRN IV SBP>180 06/18/24 00:00 06/17/24 19:19 DC Hydralazine HCl (Apresoline Injection) 10 mg Q6HR PRN IV SBP>170 06/18/24 00:00 06/17/24 22:17 DC Enoxaparin Sodium (Lovenox) 40 mg DAILY SC 06/18/24 10:00 UNV Diagnostic Test (Pha) (Accu-Chek Comfort Curve T) 1 strip Q6HR 06/18/24 12:00 Insulin Human Regular (InsuLIN R) Q6HR SC 06/18/24 12:00 Dextrose 50 ml UD PRN IV Blood Sugar LESS THAN 60 06/18/24 09:00 Enoxaparin Sodium (Lovenox) 30 mg DAILY SC 06/18/24 10:00 06/18/24 10:27 Review of Systems Constitutional: No symptom reported Ears, Nose, & Throat: No symptom reported Eyes: No symptom reported Neurological: Left-sided hemiparesis Pulmonary/Respiratory: No symptom reported Cardiovascular: No symptom reported Gastrointestinal: Abdominal pain, nausea Genitourinary: No symptom reported Musculoskeletal: No symptom reported Skin: No symptom reported Psychiatric: No symptom reported Endocrine: No symptom reported Hemotologic/Lymphatic: No symptom reported Vital Signs Vital Signs Date Time Temp Pulse Resp B/P (MAP) Pulse Ox O2 Delivery O2 Flow Rate FiO2 06/18/24 10:28 79 147/63 06/18/24 10:00 16 92 06/18/24 07:55 Room Air* 0 21 06/18/24 07:55 98.4 98.4 Physical Exam General Appearance: Cooperative. Well developed. Obese. Unkept. In no acute distress Head Exam: Normal inspection Neck Exam: Normal inspection. Non-tender. Normal alignment Pulmonary/Respiratory: Chest non-tender. Clear bilateral breath sounds Cardiovascular/Chest: Regular rate and rhythm. S1, S2. Sinus rhythm with lateral nonspecific ST depression and inferior T-wave inversion. No murmurs. No JVD. Peripheral Pulses: 2+ Radial (R). 2+ Radial (L). 2+ Pedal (R). 2+ Pedal (L) Abdominal Exam: Normal bowel sounds. Soft. Nontender. No hepatospenomegaly. No masses Ankle Exam: Negative ankle edema Lower extremities: Negative lower extremity edema Neuro/Mental Status: A&O x3. Coherent but poor historian Thoughts/Psych: Normal thought pattern. Appropriate mood and affect. Good judgement and insight Appearance: In no acute distress Skin Exam: Left lower medial tibial wound with erythema present, scaly. Hyperpigmentation present to BLEs Labs/Diagnostic Data Labs Test 06/18/24 06:17 06/17/24 16:04 06/17/24 14:45 06/17/24 10:36 Range/Units White Blood Count 10.3 4.4-10.8 10^3/uL Red Blood Count 4.28 L 4.5-5.90 10^6/uL Hemoglobin 12.2 L 13.5-17.5 g/dL Hematocrit 36.5 L 41.0-53.0 % Mean Corpuscular Volume 85.2 80.0-100.0 fL Mean Corpuscular Hemoglobin 28.5 28.0-32.0 pg Mean Corpuscular Hemoglobin Concent 33.4 32.0-36.0 g/dL Red Cell Distribution Width 13.4 11.8-14.3 % Platelet Count 241 140-450 10^3/uL Mean Platelet Volume 11.1 H 6.9-10.8 fL Neutrophils (%) (Auto) 78.2 37.0-80.0 % Lymphocytes (%) (Auto) 14.1 10.0-50.0 % Monocytes (%) (Auto) 6.1 0.0-12.0 % Eosinophils (%) (Auto) 0.7 0.0-7.0 % Basophils (%) (Auto) 0.9 0.0-2.0 % Neutrophils # (Auto) 8.1 1.6-8.6 10 ^3/uL Lymphocytes # (Auto) 1.5 0.4-5.4 10 ^3/uL Monocytes # (Auto) 0.6 0-1.3 10 ^3/uL Eosinophils # (Auto) 0.1 0-0.8 10 ^3/uL Basophils # (Auto) 0.1 0-0.2 10 ^3/uL Nucleated Red Blood Cells 0.1 % Sodium Level 143 136-145 mmol/L Potassium Level 4.0 3.5-5.1 mmol/L Chloride Level 108 H 98-107 mmol/L Carbon Dioxide Level 25 20-31 mmol/L Anion Gap 10 5-15 Blood Urea Nitrogen 25 H 9-23 mg/dL Creatinine 2.34 H 0.700-1.30 mg/dL Glomerular Filtration Rate Calc 29 >90 mL/min BUN/Creatinine Ratio 10.7 10.0-20.0 Serum Glucose 113 H 74-106 mg/dL Calcium Level 9.1 8.7-10.4 mg/dL Urine Color Light-yellow Yellow Urine Clarity Clear Clear Urine pH 7.5 5.0-9.0 Urine Specific [place] 1.011 1.001-1.035 Urine Protein 2+ H Negative Urine Ketones 1+ H Negative Urine Blood 1+ H Negative /uL Urine Nitrite Negative Negative Urine Bilirubin Negative Negative Urine Urobilinogen Normal Negative mg/dL Urine Leukocyte Esterase Negative Negative /uL Urine RBC 1 0 - 3 /hpf Urine WBC <1 0 - 3 /hpf Urine Squamous Epithelial Cells None seen <5 /hpf Urine Bacteria None seen None Seen /hpf Urine Creatinine 51.06 30.0-125.0 mg/dL Urine Protein/Creatinine Ratio 6.55 Urine Sodium 151 40-220 mmol/L Urine Glucose 1+ H Normal mg/dL Urine Total Protein 334.4 H 1-14 mg/dL Urine Opiates Screen Neg NEGATIVE Urine Fentanyl Screen Neg NEGATIVE Urine Barbiturates Screen Neg NEGATIVE Urine Phencyclidine Screen Neg NEGATIVE Urine Amphetamines Screen Neg NEGATIVE Urine Benzodiazepines Screen Neg NEGATIVE Urine Cocaine Screen Neg NEGATIVE Urine Cannabinoids Screen Neg NEGATIVE Total Bilirubin 0.5 0.2-1.0 mg/dL Aspartate Amino Transferase (AST) 32 13-40 U/L Alanine Aminotransferase (ALT) 18 7-40 U/L Alkaline Phosphatase 83 46-116 U/L Troponin I High Sensitivity 67 *H </=54 ng/L Total Protein 6.3 5.7-8.2 g/dL Albumin 3.7 3.2-4.8 g/dL Prothrombin Time 11.3 9.3-11.8 sec Prothrombin Time INR 1.07 0.9-1.15 Activated Partial Thromboplast Time 28.9 24.5-34.5 SEC Hemoglobin A1c 7.0 H <5.7 % A1C Magnesium Level 2.0 1.6-2.6 mg/dL B-Type Natriuretic Peptide 545.06 0-100 pg/mL Triglycerides Level 137 < 150 mg/dL Cholesterol Level 207 H < 200 mg/dL LDL Cholesterol 145 H < 100 mg/dL HDL Cholesterol 47 40-59 mg/dL Vitamin B12 Level 715 211-911 pg/mL Folic Acid 12.74 >5.38 ng/mL Thyroid Stimulating Hormone (TSH) 2.29 0.55-4.78 uIU/mL Plasma/Serum Blood Alcohol < 3.0 <10 mg/dL Test 06/17/24 10:09 Range/Units POC Glucose 102 70-106 mg/dl Assessment Acute CVA rule out cardioembolic source Rule out tachyarrhythmias Hx of CVA Hypertension Dyslipidemia Orn-aulditj-iwsjjlotf diabetes mellitus Obesity Plan/Recommendation (Dr. Riley) Scheduled for a transthoracic echocardiogram at first available. All risks and benefits of the procedure were discussed in detail. Agrees to proceed with intervention. In the meantime, monitor ECG changes closely and notify accordingly. Continue blood pressure control and Neurology recommendations. In the setting of an unremarkable UMM, there is no further cardiac workup indicated at this time. Consider an outpatient event monitor if deemed to be necessary. Thank you for allowing us to participate in this patient's care. Please call if you have any questions or concerns. This medical document was created using an electronic medical record system with voice recognition software and computerized dictation system. Although this document has been carefully reviewed, there might still be some phonetic and typographical errors. Occasional wrong-word or ``sound-alike substitutions may have occurred due to the inherent limitations of voice recognition software. These areas are purely typographical due to imperfections of the software programs and do not reflect any compromise in the patient's medical care. Please read the chart carefully and recognize, using context, where these substi tutions have occurred. Plan discussed with: Patient, Other NYHA Physical activity limitations: NA Date of Service: Jun 18, 2024 Billing Provider: TOM RILEY MD Cardiology Common Codes: [id number] INP/OBS CARE (High) SPJACKLYNJOSE GUADALUPE TRIAGE CLINICIAN Jun 18, 2024 11:43
[2024-06-18] MEDS: InsuLIN REG 1unit/0.01ml Soln (100units/ml) SC SCH ×2 (11:59→17:00)
[2024-06-18] MEDS: ACCU-CHEK COMFORT CURVE STRIP VI SCH ×2 (11:59→17:18)
[2024-06-18] MEDS ORDERED: ACCU-CHEK COMFORT CURVE STRIP VI ONE (12:15)
[2024-06-18] MEDS ORDERED: InsuLIN REG 1unit/0.01ml Soln (100units/ml) SC ONE (12:15)
[2024-06-18] MEDS ORDERED: DEXTROSE (50%) 50ML SYRG IV ONE (12:15)
[2024-06-18] MEDS: EMPAGLIFLOZIN 10 MG TAB PO ONE (12:36)
[2024-06-18 21:00] VITALS: BP 175/80; PULSE 95; RESP 18; TEMP 97.8; O2SAT 95
--- NOTE | 2024-06-18 21:23 | DVHEEG2 ---
Neurology EEG Procedural Note Procedural Note EXAM DATE: 06/18/2024 REFERRING DOCTOR: Up-to-date in TECHNIQUE: Eighteen channels of EEG, 2 channels of EOG, and 1 channel of EKG were recorded using the International 10/20 system. CLINICAL DATA: The patient was referred for an EEG evaluation for the evidence of seizure disorder. MEDICATIONS: See chart BACKGROUND ACTIVITY: While the patient was awake, the background activity consisted of fairly regulated 7-8 Hz rhythmic waveforms, distributed over both posterior quadrants with a left-sided better developed and was reactive to external stimuli ACTIVATION: Hyperventilation: Not done Photic Stimulation: Not done Sleep: Not done IMPRESSION: This is a focally abnormal EEG, this EEG suggestive of a pathology involving the right hemispheres, please correlate clinically and consider brain imaging study if clinically indicated The EKG channel showed a regular heart rate of 72 per minute[place] [address] SALOME OLMEDO MD Jun 18, 2024 21:23
--- NOTE | 2024-06-18 22:22 | DVHPNRES ---
Progress Note Date Seen: Jun 18, 2024 Resident Creating Document: ELEANOR BROWNJACKELINE RESIDENT Medical Necessity Reason Pt with a Central, PICC or Fol: No Subjective Review of Systems Patient was alert and oriented X 1 at the time of examination. Reported that he was confused . Denies chest pain, shortness of breath denies nausea, vomiting, diarrhea. weakness improving on the right side of the body Objective vital signs Vital Sign Date Time Temp Pulse Resp B/P (MAP) Pulse Ox O2 Delivery O2 Flow Rate FiO2 06/18/24 18:23 Room Air* 0 21 06/18/24 16:00 71 13 135/46 (75) 95 06/18/24 07:55 98.4 98.4 Total Intake and Output 06/17/24 06/17/24 06/18/24 15:00 23:00 07:00 Intake Total 240 ml Output Total 800 ml Balance -560 ml medications Current Medications Medications Dose Ordered Sig/Nova Route Start Time Stop Time Status Last Admin Dose Admin Morphine Sulfate 2 mg Q30M PRN IV 06/17/24 15:45 Aspirin 81 mg DAILY PO 06/18/24 10:00 06/18/24 10:28 81 MG Atorvastatin Calcium 80 mg HS PO 06/17/24 22:00 06/17/24 22:39 80 MG Carvedilol 12.5 mg Q12HR PO 06/17/24 22:00 06/18/24 10:28 12.5 MG Enoxaparin Sodium 40 mg DAILY SC 06/18/24 10:00 UNV Enoxaparin Sodium 30 mg DAILY SC 06/18/24 10:00 06/18/24 10:27 30 MG Empaglifozin 10 mg DAILY PO 06/19/24 10:00 Diagnostic Test (Pha) 1 strip ACHS 06/18/24 17:00 06/18/24 21:19 1 STRIP Insulin Human Regular ACHS SC 06/18/24 17:00 Dextrose 50 ml UD PRN IV 06/18/24 12:30 Examination Physical Examination Constitutional: Patient alert and oriented x1 and does not appear to be in any acute distress. Gen - no pallor, no icterus, no cyanosis, no clubbing, no LAD, 2+ edema in both the feet Skin - Patients skin is warm and dry. HEENT - normocephalic, atraumatic, moist mucous membranes. Neck - full ROM, no LAD, no JVD Pulmonary - B/L vesicular breath sounds. no crackles , no wheezing, no stridor. cardiovascular - normal S1,S2 heard. no murmurs heard. GI - soft abdomen. no hepatospleenomegaly. Bowel sounds normoactive Neurological - Right upper extremity strength 4/5, left upper extremity strength 4/5, right lower extremity strength 3/5, left lower extremity strength 4/5, no sensory deficiets. - limited exam finding as the patient was confused Cranial nerve 2- visual acuity preserved, no blurred vision reported Cranial nerve 3, 4, 6- extraocular movements within normal range Cranial nerve 5- facial sensation intact, jaw of opening normal Cranial nerve 7- no facial droop, , normal eye closing, Cranial nerve 8- hearing normal Cranial nerve 12- no tongue deviation laboratory and microbiology Laboratory Tests 06/18/24 06:17 Test 06/18/24 06:17 Range/Units Serum Glucose 113 H 74-106 mg/dL Problem List/Assessment/Plan Problem List/Assessment/Plan Acute ischemic stroke left basal ganglia, subacute right occipital Right-sided weakness CT head without contrast showed 1.Moderate size area of hypodense changes in the medial left temporal occipital lobes with loss of fuentes-white matter differentiation compatible with age- indeterminate infarct, presumed to be acute to subacute. There is no evidence of acute intracranial hemorrhage. 2.chronic infarct extending from the right chapman radiata into the right basal ganglia Brain MRI showed Large subacute left occipital infarct with a smaller focus of subacute ischemia in the left basal ganglia. No evidence of hemorrhagic complication at this time. Scge-fk-alblzguo changes chronic microvascular ischemic disease. Blooming artifact in the bilateral basal ganglia could be related to microangiopathy Carotid doppler shows 1. Less than 50% stenosis of the right internal carotid artery. 2. Less than 50% stenosis of the left internal carotid artery. 3. High-grade stenosis of the left external carotid artery. - aspirin 81 mg - stroke beyond the window period for thrombolysis - atorvastatin 80 mg - UMM to rule out cardiac thromboembolism - physical therapy eval Permissive hypertension ? Uncontrolled hypertension NSTEMI likely type 2 ?Acute exacerbation of heart failure with preserved ejection fraction - ECG showed no acute ST segment or T-wave changes - troponins trended 74-> 68-> 67 - started nifedipine 60 mg and carvedilol 12.5 mg b.i.d. - goal blood pressure SBP<= 160-170 mmHg Uncontrolled type 2 diabetes mellitus HbA1c 7% - on mild ISS Dyslipidemia On atorvastatin 80 mg HS ELLIE on CKD likely hemodynamically mediated d/t VMN - FENa 4.6% - blood pressure control Hypokalemia Replaced Goals of care discussed with the patient and the son BORA for over 23 minutes. Full code Plan discussed with Dr. Carter Plan discussed with: Patient, Son My Orders My Orders Orders - TAYLOR BROWN Procedure Category Date Status Time Empagliflozin PHA 06/19/24 In Process (Jardiance) 10:00 * Electronic Gluing Machine Operator CONS 06/18/24 Transmitted Consult Date of Service: Jun 18, 2024 Billing Provider: PAZ CARTER MD Common Visit Codes: [id number] INP/OBS CARE(HIGH) TAYLOR BROWN RESIDENT Jun 18, 2024 22:22 PAZ CARTER MD Jun 19, 2024 14:54
[2024-06-19] VITALS (13 sets, daily range): BP systolic 133–182; BP diastolic 62–108; PULSE 63–100; RESP 14–19; TEMP 97.3–98.6; O2SAT 94–99
[2024-06-19 06:04] LABS: Basophils # (auto) 0.1 10 ^3/uL (0-0.2); Basophils % (auto) 0.7 % (0.0-2.0); Eosinophils # (auto) 0.2 10 ^3/uL (0-0.8); Eosinophils % (auto) 2.2 % (0.0-7.0); Hematocrit 35.7 % (41.0-53.0); Hemoglobin 11.7 g/dL (13.5-17.5); Lymphocytes # (auto) 2.3 10 ^3/uL (0.4-5.4); Lymphocytes % (auto) 20.4 % (10.0-50.0); Mean Corpuscular Hemoglobin 27.9 pg (28.0-32.0); Mean Corpuscular Hgb Conc. 32.8 g/dL (32.0-36.0); Mean Corpuscular Volume 85.1 fL (80.0-100.0); Monocytes # (auto) 0.8 10 ^3/uL (0-1.3); Monocytes % (auto) 7.2 % (0.0-12.0); Neutrophils # (auto) 7.9 10 ^3/uL (1.6-8.6); Neutrophils % (auto) 69.5 % (37.0-80.0); Platelet Count (auto) 252 10^3/uL (140-450); Red Cell Distribution Width 13.5 % (11.8-14.3); White Blood Cell 11.4 10^3/uL (4.4-10.8)
[2024-06-19 06:29] LABS: Calcium 9.2 mg/dL (8.7-10.4); Carbon Dioxide 22 mmol/L (20-31)
[2024-06-19 06:33] LABS: Anion Gap 14 (5-15); Potassium 3.6 mmol/L (3.5-5.1)
[2024-06-19 06:34] LABS: BUN/Creatinine Ratio 12.1 (10.0-20.0)
[2024-06-19 06:38] LABS: Chloride 109 mmol/L (98-107); Sodium 145 mmol/L (136-145)
[2024-06-19 06:39] LABS: Blood Urea Nitrogen 28 mg/dL (9-23); Glucose 69 mg/dL (74-106)
[2024-06-19] MEDS: EMPAGLIFLOZIN 10 MG TAB PO SCH (09:53)
[2024-06-19] MEDS: MIDAZOLAM HCL 2MG/2ML 2ml VIAL (1mg/ml) IV ONE (11:15)
[2024-06-19] MEDS: fentaNYL CITRATE 100 MCG/2 ML VL IV ONE (11:15)
[2024-06-19] MEDS: LIDOCAINE VISCOUS 2% 15ML UD PO ONE (11:15)
--- NOTE | 2024-06-19 16:40 | DVHOP2 ---
Operative Report Operative Report CARDIAC GYRO COMPASS TESTER PROCEDURE REPORT [place], [place] Date of Service: Insights Strategist: Charu Bliss MD PROCEDURES PERFORMED: trans esophageal echocardiogram, conscious sedation <15 mins, doppler assesment complete UMM PREOPERATIVE DIAGNOSES: r/o cardiac disease POSTOP DIAGNOSIS: diastolic dysfunction DESCRIPTION OF PROCEDURE: The patient or appropriate family signed informed consent understanding the risks, benefits and alternatives of the procedure, they wished to proceed. The patient was brought to the cardiac catheter finisher and inspector in n.p.o. state. the patient was given 15 ml of oral viscous lidocaine. the patient was placed in a left lateral decubitus position with bite block in mouth. NExt conscious sedation was administered per catheter finisher and inspector protocol with _1_ mg of versed and __50_ mcg of fentanyl. Next a UMM probe was advanced to the mid esophagus with ease and multiple planar images obtained. At the completion of the procedure , probe was removed and there were no immediate complications. FINDINGS: Left Ventricle: Normal LV size and function, LVEF estimated at 60% Right Ventricle: NOrmal RV size and function Left atrium: enlarged, smoke in [place] Right atrium: mild enlarged Left atrial appendage: no thrombus noted, decreased velocity on PW monitoring Aortic valve: trileaflet valve, no severe or AI Mitral Valve: structurally normal, mild to moderate mitral regurg, no MS Tricuspid Valve: mild tricuspid regurg, no TS Pulmonic Valve: strucutrally normal, no severe PIor PS Interatrial septum: negative color flow for R to L shunt, negative bubble study Ascending aorta: no severe plaquing mild atheromatous disease CHARU BLISS MD Jun 19, 2024 16:40
[2024-06-19] MEDS: hydrALAZINE HCL 20 MG/ML VL IV ONE (16:53)
--- NOTE | 2024-06-19 19:28 | DVHPNRES ---
Progress Note Date Seen: Jun 19, 2024 Resident Creating Document: DENI BROWNBJGOKUL RESIDENT Medical Necessity Reason Pt with a Central, PICC or Fol: No Subjective Review of Systems Patient was alert and oriented X 1 at the time of examination. Reported that he was feeling confused . Denies chest pain, shortness of breath denies nausea, vomiting, diarrhea. weakness improving on the right and the left side of the body Objective vital signs Vital Sign Date Time Temp Pulse Resp B/P (MAP) Pulse Ox O2 Delivery O2 Flow Rate FiO2 06/19/24 18:06 162/69 (100) 06/19/24 17:00 97.6 100 16 99 97.6 06/19/24 08:00 Room Air* 0 21 medications Current Medications Medications Dose Ordered Sig/Nova Route Start Time Stop Time Status Last Admin Dose Admin Morphine Sulfate 2 mg Q30M PRN IV 06/17/24 15:45 Aspirin 81 mg DAILY PO 06/18/24 10:00 06/19/24 09:52 81 MG Atorvastatin Calcium 80 mg HS PO 06/17/24 22:00 06/17/24 22:39 80 MG Carvedilol 12.5 mg Q12HR PO 06/17/24 22:00 06/19/24 09:55 12.5 MG Enoxaparin Sodium 40 mg DAILY SC 06/18/24 10:00 UNV Enoxaparin Sodium 30 mg DAILY SC 06/18/24 10:00 06/19/24 09:54 30 MG Empaglifozin 10 mg DAILY PO 06/19/24 10:00 06/19/24 09:53 10 MG Diagnostic Test (Pha) 1 strip ACHS 06/18/24 17:00 06/19/24 16:42 1 STRIP Insulin Human Regular ACHS SC 06/18/24 17:00 Dextrose 50 ml UD PRN IV 06/18/24 12:30 Examination Physical Examination Constitutional: Patient alert and oriented x1 and does not appear to be in any acute distress. Gen - no pallor, no icterus, no cyanosis, no clubbing, no LAD, 2+ edema in both the feet Skin - Patients skin is warm and dry. HEENT - normocephalic, atraumatic, moist mucous membranes. Neck - full ROM, no LAD, no JVD Pulmonary - B/L vesicular breath sounds. no crackles , no wheezing, no stridor. cardiovascular - normal S1,S2 heard. no murmurs heard. GI - soft abdomen. no hepatospleenomegaly. Bowel sounds normoactive Neurological - Right upper extremity strength 4/5, left upper extremity strength 4/5, right lower extremity strength 3/5, left lower extremity strength 4/5, no sensory deficiets. - limited exam finding as the patient was confused Cranial nerve 2- visual acuity in right eye is decreased Cranial nerve 3, 4, 6- extraocular movements within normal range Cranial nerve 5- facial sensation intact, jaw of opening normal Cranial nerve 7- no facial droop, , normal eye closing, Cranial nerve 8- hearing normal Cranial nerve 12- no tongue deviation laboratory and microbiology Laboratory Tests 06/19/24 04:42 Test 06/19/24 04:42 Range/Units Serum Glucose 69 L 74-106 mg/dL Problem List/Assessment/Plan Problem List/Assessment/Plan Acute ischemic stroke left basal ganglia, subacute right occipital Right-sided weakness CT head without contrast showed 1.Moderate size area of hypodense changes in the medial left temporal occipital lobes with loss of fuentes-white matter differentiation compatible with age- indeterminate infarct, presumed to be acute to subacute. There is no evidence of acute intracranial hemorrhage. 2.chronic infarct extending from the right chapman radiata into the right basal ganglia Brain MRI showed Large subacute left occipital infarct with a smaller focus of subacute ischemia in the left basal ganglia. No evidence of hemorrhagic complication at this time. Mejn-de-kkdukqoz changes chronic microvascular ischemic disease. Blooming artifact in the bilateral basal ganglia could be related to microangiopathy Carotid doppler shows 1. Less than 50% stenosis of the right internal carotid artery. 2. Less than 50% stenosis of the left internal carotid artery. 3. High-grade stenosis of the left external carotid artery. - aspirin 81 mg - stroke beyond the window period for thrombolysis - atorvastatin 80 mg - UMM done today FINDINGS: Left Ventricle: Normal LV size and function, LVEF estimated at 60% Right Ventricle: NOrmal RV size and function Left atrium: enlarged, smoke in [place] Right atrium: mild enlarged Left atrial appendage: no thrombus noted, decreased velocity on PW monitoring Aortic valve: trileaflet valve, no severe or AI Mitral Valve: structurally normal, mild to moderate mitral regurg, no MS Tricuspid Valve: mild tricuspid regurg, no TS Pulmonic Valve: strucutrally normal, no severe PIor PS Interatrial septum: negative color flow for R to L shunt, negative bubble study Ascending aorta: no severe plaquing mild atheromatous disease - physical therapy evaluation done, recommend SNF at discharge Permissive hypertension ? Uncontrolled hypertension NSTEMI likely type 2 ?Acute exacerbation of heart failure with preserved ejection fraction - ECG showed no acute ST segment or T-wave changes - troponins trended 74-> 68-> 67 - started nifedipine 60 mg and carvedilol 12.5 mg b.i.d. 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 Full code Plan discussed with Dr. Carter Plan discussed with: Patient My Orders My Orders Orders - TAYLOR BROWN Procedure Category Date Status Time Pt Request For Service PT 06/19/24 Logged 05:40 Communication Order ORDERS 06/19/24 Transmitted 14:43 * Interface Engineer CONS 06/19/24 Transmitted Consult Date of Service: Jun 19, 2024 Billing Provider: PAZ CARTER MD Common Visit Codes: [id number] INP/OBS CARE(HIGH) TAYLOR BROWN RESIDENT Jun 19, 2024 19:28 PAZ CARTER MD Jun 19, 2024 21:25
[2024-06-19] MEDS: NIFEdipine ER 30 MG TAB PO ONE (21:18)
[2024-06-20] VITALS (8 sets, daily range): BP systolic 147–172; BP diastolic 42–68; PULSE 64–82; RESP 16–18; TEMP 97.6–99; O2SAT 95–98
[2024-06-20 06:48] LABS: Anion Gap 14 (5-15); Carbon Dioxide 23 mmol/L (20-31); Potassium 3.5 mmol/L (3.5-5.1)
[2024-06-20 06:50] LABS: Calcium 8.9 mg/dL (8.7-10.4)
[2024-06-20 06:55] LABS: BUN/Creatinine Ratio 12.5 (10.0-20.0); Glucose 77 mg/dL (74-106)
[2024-06-20 07:00] LABS: Blood Urea Nitrogen 30 mg/dL (9-23); Chloride 109 mmol/L (98-107); Sodium 146 mmol/L (136-145)
[2024-06-20 07:04] LABS: Basophils # (auto) 0.1 10 ^3/uL (0-0.2); Basophils % (auto) 0.7 % (0.0-2.0); Eosinophils # (auto) 0.1 10 ^3/uL (0-0.8); Eosinophils % (auto) 1.4 % (0.0-7.0); Hematocrit 36.1 % (41.0-53.0); Hemoglobin 11.7 g/dL (13.5-17.5); Lymphocytes # (auto) 1.5 10 ^3/uL (0.4-5.4); Lymphocytes % (auto) 15.2 % (10.0-50.0); Mean Corpuscular Hgb Conc. 32.5 g/dL (32.0-36.0); Mean Corpuscular Volume 86.1 fL (80.0-100.0); Monocytes # (auto) 0.8 10 ^3/uL (0-1.3); Monocytes % (auto) 7.5 % (0.0-12.0); Neutrophils # (auto) 7.6 10 ^3/uL (1.6-8.6); Neutrophils % (auto) 75.2 % (37.0-80.0); Platelet Count (auto) 227 10^3/uL (140-450); Red Cell Distribution Width 13.4 % (11.8-14.3); White Blood Cell 10.2 10^3/uL (4.4-10.8)
[2024-06-20] MEDS: NIFEdipine ER 30 MG TAB PO SCH (09:15)
[2024-06-20] MEDS: SODIUM CHLORIDE 0.9% 500 ML IV ONE (10:48)
--- NOTE | 2024-06-20 15:29 | DVHPNRES ---
Progress Note Date Seen: Jun 20, 2024 Resident Creating Document: DENI BROWNBJGOKUL RESIDENT Medical Necessity Reason Pt with a Central, PICC or Fol: No Subjective Review of Systems Patient was alert and oriented X 1 at the time of examination. Reported that he was feeling confused . Denies chest pain, shortness of breath denies nausea, vomiting, diarrhea. weakness improving on the right and the left side of the body Objective vital signs Vital Sign Date Time Temp Pulse Resp B/P (MAP) Pulse Ox O2 Delivery O2 Flow Rate FiO2 06/20/24 14:00 68 06/20/24 13:00 97.6 18 169/68 (101) 97 97.6 06/20/24 08:00 Room Air* 0 21 Total Intake and Output 06/19/24 06/19/24 06/20/24 14:59 22:59 06:59 Intake Total 125 ml Output Total 225 ml Balance -100 ml medications Current Medications Medications Dose Ordered Sig/Nova Route Start Time Stop Time Status Last Admin Dose Admin Morphine Sulfate 2 mg Q30M PRN IV 06/17/24 15:45 Aspirin 81 mg DAILY PO 06/18/24 10:00 06/20/24 09:14 81 MG Atorvastatin Calcium 80 mg HS PO 06/17/24 22:00 06/19/24 21:17 80 MG Carvedilol 12.5 mg Q12HR PO 06/17/24 22:00 06/20/24 09:15 12.5 MG Enoxaparin Sodium 40 mg DAILY SC 06/18/24 10:00 UNV Enoxaparin Sodium 30 mg DAILY SC 06/18/24 10:00 06/20/24 09:14 30 MG Empaglifozin 10 mg DAILY PO 06/19/24 10:00 06/20/24 09:14 10 MG Nifedipine 90 mg DAILY PO 06/21/24 10:00 UNV Examination Physical Examination Constitutional: Patient alert and oriented x1 and does not appear to be in any acute distress. Gen - no pallor, no icterus, no cyanosis, no clubbing, no LAD, 2+ edema in both the feet Skin - Patients skin is warm and dry. HEENT - normocephalic, atraumatic, moist mucous membranes. Neck - full ROM, no LAD, no JVD Pulmonary - B/L vesicular breath sounds. no crackles , no wheezing, no stridor. cardiovascular - normal S1,S2 heard. no murmurs heard. GI - soft abdomen. no hepatospleenomegaly. Bowel sounds normoactive Neurological - Right upper extremity strength 4/5, left upper extremity strength 4/5, right lower extremity strength 3/5, left lower extremity strength 4/5, no sensory deficiets. - limited exam finding as the patient was confused Cranial nerve 2- visual acuity in right eye is decreased Cranial nerve 3, 4, 6- extraocular movements within normal range Cranial nerve 5- facial sensation intact, jaw of opening normal Cranial nerve 7- no facial droop, , normal eye closing, Cranial nerve 8- hearing normal Cranial nerve 12- no tongue deviation laboratory and microbiology Laboratory Tests 06/20/24 05:17 Test 06/20/24 05:17 Range/Units Serum Glucose 77 74-106 mg/dL Problem List/Assessment/Plan Problem List/Assessment/Plan Acute ischemic stroke left basal ganglia, subacute right occipital Right-sided weakness CT head without contrast showed 1.Moderate size area of hypodense changes in the medial left temporal occipital lobes with loss of fuentes-white matter differentiation compatible with age- indeterminate infarct, presumed to be acute to subacute. There is no evidence of acute intracranial hemorrhage. 2.chronic infarct extending from the right chapman radiata into the right basal ganglia Brain MRI showed Large subacute left occipital infarct with a smaller focus of subacute ischemia in the left basal ganglia. No evidence of hemorrhagic complication at this time. [id number] changes chronic microvascular ischemic disease. Blooming artifact in the bilateral basal ganglia could be related to microangiopathy Carotid doppler shows 1. Less than 50% stenosis of the right internal carotid artery. 2. Less than 50% stenosis of the left internal carotid artery. 3. High-grade stenosis of the left external carotid artery. - aspirin 81 mg - stroke beyond the window period for thrombolysis - atorvastatin 80 mg - UMM done today FINDINGS: Left Ventricle: Normal LV size and function, LVEF estimated at 60% Right Ventricle: NOrmal RV size and function Left atrium: enlarged, smoke in [place] Right atrium: mild enlarged Left atrial appendage: no thrombus noted, decreased velocity on PW monitoring Aortic valve: trileaflet valve, no severe or AI Mitral Valve: structurally normal, mild to moderate mitral regurg, no MS Tricuspid Valve: mild tricuspid regurg, no TS Pulmonic Valve: strucutrally normal, no severe PIor PS Interatrial septum: negative color flow for R to L shunt, negative bubble study Ascending aorta: no severe plaquing mild atheromatous disease - physical therapy evaluation done, recommend SNF at discharge - Swallow evaluation done, patient cleared for mechanical soft diet Permissive hypertension ? Uncontrolled hypertension NSTEMI likely type 2 ?Acute exacerbation of heart failure with preserved ejection fraction - ECG showed no acute ST segment or T-wave changes - troponins trended 74-> 68-> 67 - nifedipine increased to 90 mg and continued carvedilol 12.5 mg b.i.d. - goal blood pressure SBP<= 160 mmHg Uncontrolled type 2 diabetes mellitus HbA1c 7% - patient's blood glucose was in control without insulin for 2 days, ISS d/janusz Dyslipidemia On atorvastatin 80 mg HS ELLIE on CKD likely hemodynamically mediated d/t VMN - FENa 4.6% - blood pressure control - IV fluid 500ml given Hypokalemia Replaced Goals of care discussed with the patient and the family for over 21minutes. Full code Plan discussed with Dr. Clarke Plan discussed with: Patient My Orders My Orders Orders - TAYLOR BROWN RESIDENT Procedure Category Date Status Time * Program Officer CONS 06/19/24 Transmitted Consult * Swallow Request ST 06/20/24 Transmitted 09:24 Mechanical Soft Diet DIET 06/20/24 Transmitted Dinner Nifedipine Er PHA 06/21/24 Logged (Procardia Xl 10:00 Nifedipine Er PHA 06/20/24 Logged (Procardia Xl 15:15 Date of Service: Jun 20, 2024 Billing Provider: JOHN CLARKE MD Common Visit Codes: [id number] INP/OBS CARE(HIGH) TAYLOR BROWN RESIDENT Jun 20, 2024 15:29 JOHN CLARKE MD Jun 20, 2024 23:09
[2024-06-20] MEDS: NIFEdipine ER 30 MG TAB PO ONE (16:01)
[2024-06-20 16:23] LABS: Potassium 3.7 mmol/L (3.5-5.1); Sodium 144 mmol/L (136-145)
[2024-06-20 16:24] LABS: Anion Gap 12 (5-15); Calcium 8.9 mg/dL (8.7-10.4); Carbon Dioxide 23 mmol/L (20-31)
[2024-06-20 16:29] LABS: BUN/Creatinine Ratio 13.1 (10.0-20.0)
[2024-06-20 16:30] LABS: Blood Urea Nitrogen 31 mg/dL (9-23); Chloride 109 mmol/L (98-107); Glucose 123 mg/dL (74-106)
[2024-06-21] VITALS (8 sets, daily range): BP systolic 90–167; BP diastolic 57–69; PULSE 60–90; RESP 16–19; TEMP 97.3–98.8; O2SAT 95–98
[2024-06-21 07:37] LABS: Anion Gap 12 (5-15); Calcium 8.8 mg/dL (8.7-10.4); Carbon Dioxide 24 mmol/L (20-31)
[2024-06-21 07:43] LABS: BUN/Creatinine Ratio 13.2 (10.0-20.0); Glucose 90 mg/dL (74-106)
[2024-06-21 07:53] LABS: Basophils # (auto) 0.1 10 ^3/uL (0-0.2); Basophils % (auto) 0.6 % (0.0-2.0); Eosinophils # (auto) 0.3 10 ^3/uL (0-0.8); Eosinophils % (auto) 3.3 % (0.0-7.0); Hematocrit 33.3 % (41.0-53.0); Hemoglobin 11.1 g/dL (13.5-17.5); Lymphocytes # (auto) 1.8 10 ^3/uL (0.4-5.4); Lymphocytes % (auto) 21.7 % (10.0-50.0); Mean Corpuscular Hemoglobin 28.4 pg (28.0-32.0); Mean Corpuscular Hgb Conc. 33.3 g/dL (32.0-36.0); Mean Corpuscular Volume 85.3 fL (80.0-100.0); Monocytes # (auto) 0.7 10 ^3/uL (0-1.3); Monocytes % (auto) 7.8 % (0.0-12.0); Neutrophils # (auto) 5.6 10 ^3/uL (1.6-8.6); Neutrophils % (auto) 66.6 % (37.0-80.0); Nucleated Red Blood Cells % 0.1 %; Platelet Count (auto) 212 10^3/uL (140-450); Red Blood Cells 3.91 10^6/uL (4.5-5.90); Red Cell Distribution Width 13.2 % (11.8-14.3); White Blood Cell 8.4 10^3/uL (4.4-10.8)
[2024-06-21 07:58] LABS: Blood Urea Nitrogen 31 mg/dL (9-23); Chloride 109 mmol/L (98-107); Potassium 3.4 mmol/L (3.5-5.1); Sodium 145 mmol/L (136-145)
[2024-06-21] MEDS: NIFEdipine ER 30 MG TAB PO SCH (08:16)
--- NOTE | 2024-06-21 13:37 | DVHPN2 ---
Subjective The patient is seen and examined at bedside. The patient remained weak on the right side. No other complaint. Reviewed: Care Plan, H&P, Labs, Medications, Previous Orders, Radiology Changes from previous H/P or p: No Changes Objective Vitals Vital Signs Date Time Temp Pulse Resp B/P (MAP) Pulse Ox O2 Delivery O2 Flow Rate FiO2 06/21/24 13:00 97.5 65 19 153/60 (91) 97 97.5 06/21/24 08:00 Room Air* 0 21 Intake/Output Intake and Output 06/21/24 07:00 Intake Total 1300 ml Output Total 400 ml Balance 900 ml Intake Oral 800 ml IV Total 500 ml Output Urine Total 400 ml General Appearance: Alert, No acute distress HEENT: Atraumatic, PERRLA, EOMI, Mucous membr. moist/pink Neck: Supple Lungs: Clear to auscultation, Normal air movement Cardiovascular: Regular rate, Normal S1, Normal S2, No murmurs, Gallops, Rubs Abdomen: Normal bowel sounds, Soft, No tenderness Neuro: Cranial nerves 3-12 NL Psych/Mental Status: Mental status NL Medications Current Medications Medications Dose Ordered Sig/Nova Route Start Time Stop Time Status Last Admin Dose Admin Morphine Sulfate 2 mg Q30M PRN IV 06/17/24 15:45 Aspirin 81 mg DAILY PO 06/18/24 10:00 06/21/24 08:15 81 MG Atorvastatin Calcium 80 mg HS PO 06/17/24 22:00 06/20/24 22:01 80 MG Carvedilol 12.5 mg Q12HR PO 06/17/24 22:00 06/21/24 08:16 12.5 MG Enoxaparin Sodium 40 mg DAILY SC 06/18/24 10:00 UNV Enoxaparin Sodium 30 mg DAILY SC 06/18/24 10:00 06/21/24 08:15 30 MG Empaglifozin 10 mg DAILY PO 06/19/24 10:00 06/21/24 08:15 10 MG Nifedipine 90 mg DAILY PO 06/21/24 10:00 06/21/24 08:16 90 MG Laboratory Results Laboratory Tests 06/21/24 06:55 Chemistry Test 06/20/24 15:32 06/21/24 06:55 Calcium Level 8.9 mg/dL (8.7-10.4) 8.8 mg/dL (8.7-10.4) Urinalysis Test 06/17/24 16:04 Urine Color Light-yellow (Yellow) Urine Clarity Clear (Clear) Urine pH 7.5 (5.0-9.0) Urine Specific [place] 1.011 (1.001-1.035) Urine Protein 2+ (Negative) H Urine Ketones 1+ (Negative) H Urine Blood 1+ /uL (Negative) H Urine Nitrite Negative (Negative) Urine Bilirubin Negative (Negative) Urine Urobilinogen Normal mg/dL (Negative) Urine Leukocyte Esterase Negative /uL (Negative) Urine RBC 1 /hpf (0 - 3) Urine WBC <1 /hpf (0 - 3) Urine Squamous Epithelial Cells None seen /hpf (<5) Urine Bacteria None seen /hpf (None Seen) Urine Creatinine 51.06 mg/dL (30.0-125.0) Urine Protein/Creatinine Ratio 6.55 Urine Sodium 151 mmol/L (40-220) Urine Glucose 1+ mg/dL (Normal) H Urine Total Protein 334.4 mg/dL (1-14) H Labs and/or images reviewed: Labs reviewed by me Assessment/Plan Assessment/Plan Acute ischemic stroke left basal ganglia, subacute right occipital Right-sided weakness CT head without contrast showed 1.Moderate size area of hypodense changes in the medial left temporal occipital lobes with loss of fuentes-white matter differentiation compatible with age- indeterminate infarct, presumed to be acute to subacute. There is no evidence of acute intracranial hemorrhage. 2.chronic infarct extending from the right chapman radiata into the right basal ganglia Brain MRI showed Large subacute left occipital infarct with a smaller focus of subacute ischemia in the left basal ganglia. No evidence of hemorrhagic complication at this time. [id number] changes chronic microvascular ischemic disease. Blooming artifact in the bilateral basal ganglia could be related to microangiopathy Carotid doppler shows 1. Less than 50% stenosis of the right internal carotid artery. 2. Less than 50% stenosis of the left internal carotid artery. 3. High-grade stenosis of the left external carotid artery. - aspirin 81 mg - stroke beyond the window period for thrombolysis - atorvastatin 80 mg - UMM done today FINDINGS: Left Ventricle: Normal LV size and function, LVEF estimated at 60% Right Ventricle: NOrmal RV size and function Left atrium: enlarged, smoke in [place] Right atrium: mild enlarged Left atrial appendage: no thrombus noted, decreased velocity on PW monitoring Aortic valve: trileaflet valve, no severe or AI Mitral Valve: structurally normal, mild to moderate mitral regurg, no MS Tricuspid Valve: mild tricuspid regurg, no TS Pulmonic Valve: strucutrally normal, no severe PIor PS Interatrial septum: negative color flow for R to L shunt, negative bubble study Ascending aorta: no severe plaquing mild atheromatous disease - physical therapy evaluation done, recommend SNF at discharge - Swallow evaluation done, patient cleared for mechanical soft diet Permissive hypertension ? Uncontrolled hypertension NSTEMI likely type 2 ?Acute exacerbation of heart failure with preserved ejection fraction - ECG showed no acute ST segment or T-wave changes - troponins trended 74-> 68-> 67 - nifedipine increased to 90 mg and continued carvedilol 12.5 mg b.i.d. - goal blood pressure SBP<= 160 mmHg Uncontrolled type 2 diabetes mellitus HbA1c 7% - patient's blood glucose was in control without insulin for 2 days, ISS d/janusz Dyslipidemia On atorvastatin 80 mg HS ELLIE on CKD likely hemodynamically mediated d/t VMN - FENa 4.6% - blood pressure control - IV fluid 500ml given Hypokalemia Replaced Continuing current management. Replace electrolytes as needed. Continuing physical therapy. Patient probaly will need residential home facility for further physical therapy This medical document was created using an electronic medical record system with [employer] direct computerized dictation system. Although this document has been carefully reviewed, there may still be some phonetic and typographical errors. These areas are purely typographical due to imperfections of the software programs, and do not reflect any compromise in the patient's medical care. Plan discussed with: Patient Date of Service: Jun 21, 2024 Billing Provider: JOHN CLARKE MD Common Visit Codes: [id number] INP/OBS CARE(HIGH) JOHN CLARKE MD Jun 21, 2024 13:37
[2024-06-21] MEDS ORDERED: SODIUM CHLORIDE 0.9% 1,000 ML IV SCH (14:15)
[2024-06-21] MEDS ORDERED: SOD CHL 0.9%/ KCL 40MEQ 1,000 ML IV SCH (14:45)
--- NOTE | 2024-06-21 16:14 | DVHINCON2 ---
Date of service: Jun 21, [address] Collier. Reason for Consultation Acute kidney injury. History of Present Illness 69-year-old patient is Andorran-speaking with significant history of diabetes type 2 for about 5-10 years, hypertension, CVA with residual left-sided weakness , poorly controlled, history of Chronic kidney disease, hyperlipidemia who presents to the hospital on June 17, 2024 with main complaint of right sided numbness and weakness associated with abdominal pain 3/10 associated with nausea. He was admitted and evaluated with the MRI of the brain which confirmed suspected CVA showing large subacute left occipital infarct. The patient underwent also transesophageal ECHO with no vegetation or thrombus. Patient denies history of nephrolithiasis, NSAID use, denies obstructive urinary symptoms, denies any flank pain or hematuria. Laboratory data revealed abnormal renal function test since admission June 17. He received IV bolus yesterday with no significant improvement renal function markers. Past Medical History Hypertension, hyperlipidemia, diabetes type 2 insulin-dependent, cerebrovascular disease, osteoarthritis. Past Surgical History Bilateral knee replacement Allergies: Coded Allergies: NO KNOWN ALLERGIES (Unverified , 02/04/24) Home Meds Reported Medications Patients Own Medication (PATIENTS OWN MEDICATION) ., DROP OP UD for 30 Days, #5 PTS OWN MED-OBTAIN FROM PT AND SEND TO RX DRUG: OFLOXACIN 0.3% EYE DROPS FREQ: PLEASE SEE ATTACHED FOR DETAILED DIRECTIONS 06/18/24 Pantoprazole Sodium Sesquihydr (Pantoprazole Sodium Dr) 40 Mg Tab, 20 MG PO DAILY for 90 Days, #90 06/18/24 Atorvastatin Calcium (Lipitor) 20 Mg Tab, 1 TAB PO DAILY for 90 Days, #90 06/18/24 Lisinopril (Lisinopril) 20 Mg Tab, 1 TAB PO DAILY for 90 Days, #90 06/18/24 Nifedipine (Nifedipine Er) 60 Mg Tab, 1 TAB PO DAILY for 90 Days, #90 06/18/24 Metformin Hydrochloride (Metformin Hcl) 1,000 Mg Tab, 1 TAB PO BID for 90 Days, #180 06/18/24 Cyclobenzaprine Hcl (Cyclobenzaprine Hcl) 10 Mg Tab, 1 TAB PO BID PRN for MUSCLE SPASMS for 10 Days, #20 06/18/24 Amlodipine Besylate (Amlodipine Besylate) 5 Mg Tab, 2 TAB PO DAILY for 30 Days, #60 06/18/24 Prednisolone Acetate (Ophth) (Pred Forte) 1 % Miguelina, 1 DROP RIGHTEYE QID for 30 Days, #10 06/18/24 Carvedilol (Carvedilol) 25 Mg Tab, 1 TAB PO BID for 30 Days, #60 06/18/24 Current Medications Current Medications Medications (Trade) Dose Ordered Sig/Nova Route PRN Reason Start Time Stop Time Status Last Admin Nifedipine (Procardia Xl (Time-Release)) 90 mg DAILY PO 06/21/24 10:00 06/21/24 08:16 Sodium Chloride 1,000 ml @ 100 mls/hr Q10H IV 06/21/24 14:15 06/21/24 14:39 DC Potassium Chloride/Sodium Chloride 1,000 ml @ 100 mls/hr Q10H IV 06/21/24 14:45 06/21/24 15:54 DC Sodium Chloride 1,000 ml @ 100 mls/hr Q10H IV 06/21/24 16:00 UNV Family History Diabetes in the mother hypertension Social History He denies smoking alcohol or drug abuse Review of Systems HEENT: Oral mucosa dry Neck no JVD Cardiovascular: Denies for chest pain denies orthopnea or PND Respiratory: Denies cough or shortness of breath Gastrointestinal: Denies for nausea vomiting Musculoskeletal: Denies myalgias Neurological: Positive for right-sided weakness Dermatological: Denies any rash The rest of the review of systems were reviewed pertinent positives and pertinent negatives are as per HPI up to 12 points review of systems H&P Exam Vital Signs/I&O Vital Sign Date Time Temp Pulse Resp B/P (MAP) Pulse Ox O2 Delivery O2 Flow Rate FiO2 06/21/24 13:00 97.5 65 19 153/60 (91) 97 97.5 06/21/24 08:00 Room Air* 0 21 Intake and Output 06/20/24 06/21/24 19:00 07:00 Intake Total 1100 ml 200 ml Output Total 400 ml 0 ml Balance 700 ml 200 ml Intake Oral 600 ml 200 ml IV Total 500 ml Output Urine Total 400 ml 0 ml Physical Exam HEENT: No evidence of JVD, no oral ulcers. Pulmonary: Lungs are clear on auscultation bilaterally Cardiovascular S1-S2, no S3 or S4 Abdomen: Bowel sounds positive, soft no rebound tenderness Skin: No rash Neurological: Alert, oriented, right-sided hemiparesis Labs/Diagnostic Data Labs/Diagnostic Data Laboratory Tests Test 06/21/24 06:55 06/20/24 15:32 06/20/24 05:35 06/20/24 05:17 Range/Units White Blood Count 8.4 10.2 4.4-10.8 10^3/uL Red Blood Count 3.91 L 4.20 L 4.5-5.90 10^6/uL Hemoglobin 11.1 L 11.7 L 13.5-17.5 g/dL Hematocrit 33.3 L 36.1 L 41.0-53.0 % Mean Corpuscular Volume 85.3 86.1 80.0-100.0 fL Mean Corpuscular Hemoglobin 28.4 28.0 28.0-32.0 pg Mean Corpuscular Hemoglobin Concent 33.3 32.5 32.0-36.0 g/dL Red Cell Distribution Width 13.2 13.4 11.8-14.3 % Platelet Count 212 227 140-450 10^3/uL Mean Platelet Volume 11.0 H 11.4 H 6.9-10.8 fL Neutrophils (%) (Auto) 66.6 75.2 37.0-80.0 % Lymphocytes (%) (Auto) 21.7 15.2 10.0-50.0 % Monocytes (%) (Auto) 7.8 7.5 0.0-12.0 % Eosinophils (%) (Auto) 3.3 1.4 0.0-7.0 % Basophils (%) (Auto) 0.6 0.7 0.0-2.0 % Neutrophils # (Auto) 5.6 7.6 1.6-8.6 10 ^3/uL Lymphocytes # (Auto) 1.8 1.5 0.4-5.4 10 ^3/uL Monocytes # (Auto) 0.7 0.8 0-1.3 10 ^3/uL Eosinophils # (Auto) 0.3 0.1 0-0.8 10 ^3/uL Basophils # (Auto) 0.1 0.1 0-0.2 10 ^3/uL Nucleated Red Blood Cells 0.1 0.0 % Sodium Level 145 144 146 H 136-145 mmol/L Potassium Level 3.4 L 3.7 3.5 3.5-5.1 mmol/L Chloride Level 109 H 109 H 109 H 98-107 mmol/L Carbon Dioxide Level 24 23 23 20-31 mmol/L Anion Gap 12 12 14 5-15 Blood Urea Nitrogen 31 H 31 H 30 H 9-23 mg/dL Creatinine 2.35 H 2.36 H 2.40 H 0.700-1.30 mg/dL Glomerular Filtration Rate Calc 29 29 28 >90 mL/min BUN/Creatinine Ratio 13.2 13.1 12.5 10.0-20.0 Serum Glucose 90 123 H 77 74-106 mg/dL Calcium Level 8.8 8.9 8.9 8.7-10.4 mg/dL POC Glucose 73 70-106 mg/dl Test 06/19/24 21:16 06/19/24 17:29 06/19/24 15:26 06/19/24 04:42 Range/Units POC Glucose 87 71 73 70-106 mg/dl White Blood Count 11.4 H 4.4-10.8 10^3/uL Red Blood Count 4.20 L 4.5-5.90 10^6/uL Hemoglobin 11.7 L 13.5-17.5 g/dL Hematocrit 35.7 L 41.0-53.0 % Mean Corpuscular Volume 85.1 80.0-100.0 fL Mean Corpuscular Hemoglobin 27.9 L 28.0-32.0 pg Mean Corpuscular Hemoglobin Concent 32.8 32.0-36.0 g/dL Red Cell Distribution Width 13.5 11.8-14.3 % Platelet Count 252 140-450 10^3/uL Mean Platelet Volume 11.4 H 6.9-10.8 fL Neutrophils (%) (Auto) 69.5 37.0-80.0 % Lymphocytes (%) (Auto) 20.4 10.0-50.0 % Monocytes (%) (Auto) 7.2 0.0-12.0 % Eosinophils (%) (Auto) 2.2 0.0-7.0 % Basophils (%) (Auto) 0.7 0.0-2.0 % Neutrophils # (Auto) 7.9 1.6-8.6 10 ^3/uL Lymphocytes # (Auto) 2.3 0.4-5.4 10 ^3/uL Monocytes # (Auto) 0.8 0-1.3 10 ^3/uL Eosinophils # (Auto) 0.2 0-0.8 10 ^3/uL Basophils # (Auto) 0.1 0-0.2 10 ^3/uL Nucleated Red Blood Cells 0.0 % Sodium Level 145 136-145 mmol/L Potassium Level 3.6 3.5-5.1 mmol/L Chloride Level 109 H 98-107 mmol/L Carbon Dioxide Level 22 20-31 mmol/L Anion Gap 14 5-15 Blood Urea Nitrogen 28 H 9-23 mg/dL Creatinine 2.32 H 0.700-1.30 mg/dL Glomerular Filtration Rate Calc 30 >90 mL/min BUN/Creatinine Ratio 12.1 10.0-20.0 Serum Glucose 69 L 74-106 mg/dL Calcium Level 9.2 8.7-10.4 mg/dL Test 06/18/24 21:14 06/18/24 17:17 06/18/24 11:58 06/18/24 06:17 Range/Units POC Glucose 87 87 104 70-106 mg/dl White Blood Count 10.3 4.4-10.8 10^3/uL Red Blood Count 4.28 L 4.5-5.90 10^6/uL Hemoglobin 12.2 L 13.5-17.5 g/dL Hematocrit 36.5 L 41.0-53.0 % Mean Corpuscular Volume 85.2 80.0-100.0 fL Mean Corpuscular Hemoglobin 28.5 28.0-32.0 pg Mean Corpuscular Hemoglobin Concent 33.4 32.0-36.0 g/dL Red Cell Distribution Width 13.4 11.8-14.3 % Platelet Count 241 140-450 10^3/uL Mean Platelet Volume 11.1 H 6.9-10.8 fL Neutrophils (%) (Auto) 78.2 37.0-80.0 % Lymphocytes (%) (Auto) 14.1 10.0-50.0 % Monocytes (%) (Auto) 6.1 0.0-12.0 % Eosinophils (%) (Auto) 0.7 0.0-7.0 % Basophils (%) (Auto) 0.9 0.0-2.0 % Neutrophils # (Auto) 8.1 1.6-8.6 10 ^3/uL Lymphocytes # (Auto) 1.5 0.4-5.4 10 ^3/uL Monocytes # (Auto) 0.6 0-1.3 10 ^3/uL Eosinophils # (Auto) 0.1 0-0.8 10 ^3/uL Basophils # (Auto) 0.1 0-0.2 10 ^3/uL Nucleated Red Blood Cells 0.1 % Sodium Level 143 136-145 mmol/L Potassium Level 4.0 3.5-5.1 mmol/L Chloride Level 108 H 98-107 mmol/L Carbon Dioxide Level 25 20-31 mmol/L Anion Gap 10 5-15 Blood Urea Nitrogen 25 H 9-23 mg/dL Creatinine 2.34 H 0.700-1.30 mg/dL Glomerular Filtration Rate Calc 29 >90 mL/min BUN/Creatinine Ratio 10.7 10.0-20.0 Serum Glucose 113 H 74-106 mg/dL Calcium Level 9.1 8.7-10.4 mg/dL Test 06/17/24 16:04 06/17/24 15:44 06/17/24 14:45 06/17/24 12:35 Range/Units Urine Color Light-yellow Light-yellow Yellow Urine Clarity Clear Clear Clear Urine pH 7.5 7.5 5.0-9.0 Urine Specific [place] 1.011 1.011 1.001-1.035 Urine Protein 2+ H 3+ H Negative Urine Ketones 1+ H 1+ H Negative Urine Blood 1+ H 1+ H Negative /uL Urine Nitrite Negative Negative Negative Urine Bilirubin Negative Negative Negative Urine Urobilinogen Normal Normal Negative mg/dL Urine Leukocyte Esterase Negative Negative Negative /uL Urine RBC 1 1 0 - 3 /hpf Urine WBC <1 <1 0 - 3 /hpf Urine Squamous Epithelial Cells None seen None seen <5 /hpf Urine Bacteria None seen None seen None Seen /hpf Urine Creatinine 51.06 30.0-125.0 mg/dL Urine Protein/Creatinine Ratio 6.55 Urine Sodium 151 40-220 mmol/L Urine Glucose 1+ H 1+ H Normal mg/dL Urine Total Protein 334.4 H 1-14 mg/dL Urine Opiates Screen Neg NEGATIVE Urine Fentanyl Screen Neg NEGATIVE Urine Barbiturates Screen Neg NEGATIVE Urine Phencyclidine Screen Neg NEGATIVE Urine Amphetamines Screen Neg NEGATIVE Urine Benzodiazepines Screen Neg NEGATIVE Urine Cocaine Screen Neg NEGATIVE Urine Cannabinoids Screen Neg NEGATIVE Sodium Level 143 136-145 mmol/L Potassium Level 3.3 L 3.5-5.1 mmol/L Chloride Level 109 H 98-107 mmol/L Carbon Dioxide Level 25 20-31 mmol/L Anion Gap 9 5-15 Blood Urea Nitrogen 24 H 9-23 mg/dL Creatinine 2.24 H 0.700-1.30 mg/dL Glomerular Filtration Rate Calc 31 >90 mL/min BUN/Creatinine Ratio 10.7 10.0-20.0 Serum Glucose 96 74-106 mg/dL Calcium Level 9.1 8.7-10.4 mg/dL Total Bilirubin 0.5 0.2-1.0 mg/dL Aspartate Amino Transferase (AST) 32 13-40 U/L Alanine Aminotransferase (ALT) 18 7-40 U/L Alkaline Phosphatase 83 46-116 U/L Troponin I High Sensitivity 67 *H 68 *H </=54 ng/L Total Protein 6.3 5.7-8.2 g/dL Albumin 3.7 3.2-4.8 g/dL Test 06/17/24 10:36 06/17/24 10:09 Range/Units White Blood Count 10.3 4.4-10.8 10^3/uL Red Blood Count 4.50 4.5-5.90 10^6/uL Hemoglobin 12.9 L 13.5-17.5 g/dL Hematocrit 38.0 L 41.0-53.0 % Mean Corpuscular Volume 84.5 80.0-100.0 fL Mean Corpuscular Hemoglobin 28.8 28.0-32.0 pg Mean Corpuscular Hemoglobin Concent 34.0 32.0-36.0 g/dL Red Cell Distribution Width 13.0 11.8-14.3 % Platelet Count 260 140-450 10^3/uL Mean Platelet Volume 10.2 6.9-10.8 fL Neutrophils (%) (Auto) 77.8 37.0-80.0 % Lymphocytes (%) (Auto) 14.4 10.0-50.0 % Monocytes (%) (Auto) 5.4 0.0-12.0 % Eosinophils (%) (Auto) 1.5 0.0-7.0 % Basophils (%) (Auto) 0.9 0.0-2.0 % Neutrophils # (Auto) 8.0 1.6-8.6 10 ^3/uL Lymphocytes # (Auto) 1.5 0.4-5.4 10 ^3/uL Monocytes # (Auto) 0.6 0-1.3 10 ^3/uL Eosinophils # (Auto) 0.2 0-0.8 10 ^3/uL Basophils # (Auto) 0.1 0-0.2 10 ^3/uL Nucleated Red Blood Cells 0.0 % Prothrombin Time 11.3 9.3-11.8 sec Prothrombin Time INR 1.07 0.9-1.15 Activated Partial Thromboplast Time 28.9 24.5-34.5 SEC Sodium Level 143 136-145 mmol/L Potassium Level 3.7 3.5-5.1 mmol/L Chloride Level 107 98-107 mmol/L Carbon Dioxide Level 29 20-31 mmol/L Anion Gap 7 5-15 Blood Urea Nitrogen 24 H 9-23 mg/dL Creatinine 2.37 H 0.700-1.30 mg/dL Glomerular Filtration Rate Calc 29 >90 mL/min BUN/Creatinine Ratio 10.1 10.0-20.0 Serum Glucose 112 H 74-106 mg/dL Hemoglobin A1c 7.0 H <5.7 % A1C Calcium Level 9.6 8.7-10.4 mg/dL Magnesium Level 2.0 1.6-2.6 mg/dL Total Bilirubin 0.6 0.2-1.0 mg/dL Aspartate Amino Transferase (AST) 36 13-40 U/L Alanine Aminotransferase (ALT) 20 7-40 U/L Alkaline Phosphatase 92 46-116 U/L Troponin I High Sensitivity 74 *H </=54 ng/L B-Type Natriuretic Peptide 545.06 0-100 pg/mL Total Protein 7.0 5.7-8.2 g/dL Albumin 4.1 3.2-4.8 g/dL Triglycerides Level 137 < 150 mg/dL Cholesterol Level 207 H < 200 mg/dL LDL Cholesterol 145 H < 100 mg/dL HDL Cholesterol 47 40-59 mg/dL Vitamin B12 Level 715 211-911 pg/mL Folic Acid 12.74 >5.38 ng/mL Thyroid Stimulating Hormone (TSH) 2.29 0.55-4.78 uIU/mL Plasma/Serum Blood Alcohol < 3.0 <10 mg/dL POC Glucose 102 70-106 mg/dl MRI of the brain showing subacute left occipital lobe CVA Assessment Assessment: 1. Acute kidney injury on chronic kidney disease it is unclear if this is patient's new baseline. 2. Hypokalemia 3. Acute left occipital ischemic CVA 4. Right-sided hemiparesis 5. Poorly-controlled hypertension 6. Diabetes type 2 with nephropathy 7. Proteinuria, nephrotic range Plan: IV fluids with NS drip Potassium chloride p.o. x1 Obtain renal ultrasound with PVR Obtain urine sodium Urine protein creatinine ratio was reviewed If at all possible avoid use of IV contrast and NSAIDs. Hold SGLT2 inhibitor, MADISON inhibitor and ARB until acute kidney injury resolved. Continue aspirin, statin, carvedilol. Thank you very much for allowing us to participate in the care of this patient Plan discussed with: Patient KEILA SUE MD Jun 21, 2024 16:14
[2024-06-21] MEDS: SODIUM CHLORIDE 0.9% 1,000 ML IV SCH (16:30)
--- NOTE | 2024-06-21 17:08 | DVH ---
INDICATION: ELLIE, Renal US with PVR TECHNIQUE: Multiple real-time sonographic images of the kidneys and bladder were obtained. COMPARISON: None FINDINGS: RIGHT kidney measures 10.8 cm in length. No hydronephrosis. LEFT kidney measures 10.7 cm in length. No hydronephrosis. Pineda catheter in the urinary bladder. IMPRESSION: No acute findings.
[2024-06-21] MEDS: POTASSIUM EFFERVESENT TAB 25 MEQ PO ONE (17:33)
[2024-06-22 01:00] VITALS: BP 145/65; PULSE 90; RESP 17; TEMP 97.6; O2SAT 96
[2024-06-22 05:00] VITALS: BP 156/45; PULSE 76; RESP 18; TEMP 97.7; O2SAT 96
[2024-06-22 08:00] VITALS: PULSE 76
[2024-06-22 09:00] VITALS: BP 166/50; PULSE 75; RESP 17; TEMP 98.5; O2SAT 95
[2024-06-22] MEDS: CARVEDILOL 12.5 MG TAB PO SCH (09:39)
[2024-06-22 10:24] LABS: Basophils # (auto) 0.1 10 ^3/uL (0-0.2); Basophils % (auto) 0.7 % (0.0-2.0); Eosinophils # (auto) 0.2 10 ^3/uL (0-0.8); Eosinophils % (auto) 1.7 % (0.0-7.0); Hematocrit 34.8 % (41.0-53.0); Hemoglobin 11.4 g/dL (13.5-17.5); Lymphocytes # (auto) 1.4 10 ^3/uL (0.4-5.4); Lymphocytes % (auto) 11.6 % (10.0-50.0); Mean Corpuscular Hemoglobin 27.9 pg (28.0-32.0); Mean Corpuscular Hgb Conc. 32.8 g/dL (32.0-36.0); Mean Corpuscular Volume 85.1 fL (80.0-100.0); Monocytes # (auto) 0.9 10 ^3/uL (0-1.3); Monocytes % (auto) 7.5 % (0.0-12.0); Neutrophils # (auto) 9.4 10 ^3/uL (1.6-8.6); Neutrophils % (auto) 78.5 % (37.0-80.0); Platelet Count (auto) 208 10^3/uL (140-450); Red Blood Cells 4.08 10^6/uL (4.5-5.90); Red Cell Distribution Width 13.1 % (11.8-14.3)
[2024-06-22 10:43] LABS: Anion Gap 10 (5-15); Carbon Dioxide 24 mmol/L (20-31); Sodium 143 mmol/L (136-145)
[2024-06-22 10:49] LABS: BUN/Creatinine Ratio 12.8 (10.0-20.0)
[2024-06-22 10:52] LABS: Blood Urea Nitrogen 29 mg/dL (9-23); Chloride 109 mmol/L (98-107); Glucose 160 mg/dL (74-106); Potassium 3.4 mmol/L (3.5-5.1)
[2024-06-22 10:53] LABS: Calcium 8.4 mg/dL (8.7-10.4)
[2024-06-22] MEDS: POTASSIUM EFFERVESENT TAB 25 MEQ PO ONE (11:53)
--- NOTE | 2024-06-22 12:28 | DVHPN2 ---
Progress Note - Dictate Date Seen: Jun 22, 2024 Medical Necessity Reason Pt with a Central, PICC or Fol: No Subjective no acute issues overnight . vital signs Vital Sign Date Time Temp Pulse Resp B/P (MAP) Pulse Ox O2 Delivery O2 Flow Rate FiO2 06/22/24 11:10 75 06/22/24 09:39 166/50 06/22/24 09:00 98.5 17 95 98.5 06/22/24 08:00 Room Air* 0 21 Total Intake and Output 06/21/24 06/21/24 06/22/24 15:00 23:00 07:00 Intake Total 650 ml 0 ml Output Total 0 ml 350 ml Balance 650 ml -350 ml medications Current Medications Medications Dose Ordered Sig/Nova Route Start Time Stop Time Status Last Admin Dose Admin Morphine Sulfate 2 mg Q30M PRN IV 06/17/24 15:45 Aspirin 81 mg DAILY PO 06/18/24 10:00 06/22/24 09:38 81 MG Atorvastatin Calcium 80 mg HS PO 06/17/24 22:00 06/21/24 21:28 80 MG Enoxaparin Sodium 40 mg DAILY SC 06/18/24 10:00 UNV Enoxaparin Sodium 30 mg DAILY SC 06/18/24 10:00 06/22/24 09:38 30 MG Nifedipine 90 mg DAILY PO 06/21/24 10:00 06/22/24 09:39 90 MG Sodium Chloride 1,000 ml @ 100 mls/hr Q10H IV 06/21/24 16:00 06/22/24 05:26 100 MLS/HR Carvedilol 25 mg Q12HR PO 06/22/24 10:00 06/22/24 09:39 25 MG objective HEENT: No evidence of JVD, no oral ulcers. Pulmonary: Lungs are clear on auscultation bilaterally Cardiovascular S1-S2, no S3 or S4 Abdomen: Bowel sounds positive, soft no rebound tenderness Skin: No rash Neurological: Alert, oriented, right-sided hemiparesis laboratory and microbiology Laboratory Tests 06/22/24 09:41 Test 06/22/24 09:41 Range/Units Serum Glucose 160 H 74-106 mg/dL Problem List 1. Acute kidney injury superimposed on chronic kidney disease . 2. Hypokalemia 3. Acute left occipital ischemic CVA 4. Right-sided hemiparesis 5. Poorly-controlled hypertension 6. Diabetes type 2 with nephropathy 7. Proteinuria, nephrotic range Assessment/Plan Plan: Creatinine in Feb 2024 was 1.5 mg/dl This seems to be his new baseline due to poorly controlled DM . DC IV fluids Replace Potassium chloride renal ultrasound with no acute findings BP control Hold SGLT2 inhibitor, MADISON inhibitor and ARB for now . Plan discussed with: Other MADHURI MARTINEZ MD Jun 22, 2024 12:28
[2024-06-22 13:00] VITALS: BP 149/63; PULSE 68; RESP 20; TEMP 98.5; O2SAT 98
[2024-06-22 17:00] VITALS: BP 148/66; PULSE 72; RESP 21; TEMP 98; O2SAT 93
[2024-06-22] MEDS ORDERED: LORazepam 2MG/ML-1ML VIAL IV PRN (21:00)
--- NOTE | 2024-06-22 21:09 | DVHPNRES ---
Progress Note Date Seen: Jun 22, 2024 Resident Creating Document: ELEANOR BROWNJACKELINE RESIDENT Medical Necessity Reason Pt with a Central, PICC or Fol: No Subjective Review of Systems Patient was alert and oriented X 1 at the time of examination.. Denies chest pain, shortness of breath denies nausea, vomiting, diarrhea. weakness improving on the right and the left side of the body Has poor vision bilaterally Objective vital signs Vital Sign Date Time Temp Pulse Resp B/P (MAP) Pulse Ox O2 Delivery O2 Flow Rate FiO2 06/22/24 17:00 98.0 72 21 148/66 (93) 93 98.0 06/22/24 08:00 Room Air* 0 21 Total Intake and Output 06/21/24 06/21/24 06/22/24 15:00 23:00 07:00 Intake Total 650 ml 0 ml Output Total 0 ml 350 ml Balance 650 ml -350 ml medications Current Medications Medications Dose Ordered Sig/Nova Route Start Time Stop Time Status Last Admin Dose Admin Morphine Sulfate 2 mg Q30M PRN IV 06/17/24 15:45 Aspirin 81 mg DAILY PO 06/18/24 10:00 06/22/24 09:38 81 MG Atorvastatin Calcium 80 mg HS PO 06/17/24 22:00 06/21/24 21:28 80 MG Enoxaparin Sodium 40 mg DAILY SC 06/18/24 10:00 UNV Enoxaparin Sodium 30 mg DAILY SC 06/18/24 10:00 06/22/24 09:38 30 MG Nifedipine 90 mg DAILY PO 06/21/24 10:00 06/22/24 09:39 90 MG Carvedilol 25 mg Q12HR PO 06/22/24 10:00 06/22/24 09:39 25 MG Examination Physical Examination Constitutional: Patient alert and oriented x1 and does not appear to be in any acute distress. Gen - no pallor, no icterus, no cyanosis, no clubbing, no LAD, 2+ edema in both the feet Skin - Patients skin is warm and dry. HEENT - normocephalic, atraumatic, moist mucous membranes. Neck - full ROM, no LAD, no JVD Pulmonary - B/L vesicular breath sounds. no crackles , no wheezing, no stridor. cardiovascular - normal S1,S2 heard. no murmurs heard. GI - soft abdomen. no hepatospleenomegaly. Bowel sounds normoactive Neurological - Right upper extremity strength 4/5, left upper extremity strength 4/5, right lower extremity strength 3/5, left lower extremity strength 4/5, no sensory deficiets. - limited exam finding as the patient was confused Cranial nerve 2- visual acuity in both left and right eye is decreased, not able to count fingers correctly Cranial nerve 3, 4, 6- extraocular movements within normal range Cranial nerve 5- facial sensation intact, jaw of opening normal Cranial nerve 7- no facial droop, , normal eye closing, Cranial nerve 8- hearing normal Cranial nerve 12- no tongue deviation laboratory and microbiology Laboratory Tests 06/22/24 09:41 Test 06/22/24 09:41 Range/Units Serum Glucose 160 H 74-106 mg/dL Problem List/Assessment/Plan Problem List/Assessment/Plan Acute ischemic stroke left basal ganglia, subacute right occipital Right-sided weakness CT head without contrast showed 1.Moderate size area of hypodense changes in the medial left temporal occipital lobes with loss of fuentes-white matter differentiation compatible with age- indeterminate infarct, presumed to be acute to subacute. There is no evidence of acute intracranial hemorrhage. 2.chronic infarct extending from the right chapman radiata into the right basal ganglia Brain MRI showed Large subacute left occipital infarct with a smaller focus of subacute ischemia in the left basal ganglia. No evidence of hemorrhagic complication at this time. [id number] changes chronic microvascular ischemic disease. Blooming artifact in the bilateral basal ganglia could be related to microangiopathy Carotid doppler shows 1. Less than 50% stenosis of the right internal carotid artery. 2. Less than 50% stenosis of the left internal carotid artery. 3. High-grade stenosis of the left external carotid artery. - aspirin 81 mg - stroke beyond the window period for thrombolysis - atorvastatin 80 mg - UMM done today FINDINGS: Left Ventricle: Normal LV size and function, LVEF estimated at 60% Right Ventricle: NOrmal RV size and function Left atrium: enlarged, smoke in LA Right atrium: mild enlarged Left atrial appendage: no thrombus noted, decreased velocity on PW monitoring Aortic valve: trileaflet valve, no severe or AI Mitral Valve: structurally normal, mild to moderate mitral regurg, no MS Tricuspid Valve: mild tricuspid regurg, no TS Pulmonic Valve: strucutrally normal, no severe PIor PS Interatrial septum: negative color flow for R to L shunt, negative bubble study Ascending aorta: no severe plaquing mild atheromatous disease - physical therapy evaluation done, recommend SNF at discharge - Swallow evaluation done, patient cleared for mechanical soft diet - 06/22- MRI brain ordered but the patient came out of the MRI and it was not completed. Dr Teixeira informed. Permissive hypertension ? Uncontrolled hypertension NSTEMI likely type 2 ?Acute exacerbation of heart failure with preserved ejection fraction - ECG showed no acute ST segment or T-wave changes - troponins trended 74-> 68-> 67 - nifedipine increased to 90 mg and increased carvedilol to 25 mg b.i.d. - goal blood pressure SBP<= 160 mmHg Uncontrolled type 2 diabetes mellitus HbA1c 7% - patient's blood glucose was in control without insulin for 2 days, ISS d/janusz Dyslipidemia On atorvastatin 80 mg HS ELLIE on CKD likely hemodynamically mediated d/t VMN - FENa 4.6% - blood pressure control - on IV fluids Hypokalemia Replaced Goals of care discussed with the patient and the family for over 21minutes. Full code Plan discussed with Plan discussed with: Other (RN ( MERON )) My Orders My Orders Orders - TAYLOR BROWN RESIDENT Procedure Category Date Status Time Carvedilol Tablet PHA 06/22/24 In Process (Coreg Tablet) 10:00 Brain Head Wo Contrast MRI 06/22/24 Taken 10:11 Lorazepam 2mg/Ml Inj PHA 06/22/24 Logged (Ativan Inj) 21:00 NS PHA 06/22/24 Verified 21:15 Date of Service: Jun 22, 2024 Billing Provider: CORRY CLARK MD Common Visit Codes: [id number] INP/OBS CARE(HIGH) TAYLOR BROWN RESIDENT Jun 22, 2024 21:09 CORRY CLARK MD Jun 23, 2024 20:30
--- NOTE | 2024-06-22 21:26 | DVHPN2 ---
Progress Note - Dictate Date Seen: Jun 22, 2024 Medical Necessity Reason Pt with a Central, PICC or Fol: No Subjective Mr. Herminio Gale is a 69 years old right-handed gentleman with a history of hypertension, diabetes, dyslipidemia, chronic stroke with residual left-sided weakness, the patient was was brought to the [facility] on 06/17/2024 with a chief company of left-sided numbness. I have seen and examined the patient, I have talked to his nurse, he is doing better, awake, oriented x 1, he is cooperative, he moves the extremities, difficulty ho tell if one side is weaker than the other Earlier today, he was agitated and aggressive Because of worsening of vision disturbance, the patient was had MR brain scan on 06/22/2024, the report pending, I think there is enlargement in the pre-existing acute stroke UDS, 06/17/2024: Negative Plasma alcohol, 06/17/2024: 3 Urinalysis, 06/17/2024: Unremarkable CBC, 06/17/2024: Unremarkable PTT/INR/PTT, 06/17/2024: 11.3/1.07/28.9 BUN/CR, 06/17/2024: 24/2.24, 06/08/2024: 25/2.34 HGB A1c, 06/17/2024: 7 Liver function tests, 06/17/2024: Unremarkable Vitamin B12, 06/17/2024: 715 Folic acid, 06/17/2024: 12.74 TSH, 06/2024: 2.29 TG/HDL/LDL/HDL, 06/17/2024: 137/207/145/47 UMM, 06/19/2024: Left Ventricle: Normal LV size and function, LVEF estimated at 60% Right Ventricle: NOrmal RV size and function Left atrium: enlarged, smoke in [place] Right atrium: mild enlarged Left atrial appendage: no thrombus noted, decreased velocity on PW monitoring Aortic valve: trileaflet valve, no severe or AI Mitral Valve: structurally normal, mild to moderate mitral regurg, no MS Tricuspid Valve: mild tricuspid regurg, no TS Pulmonic Valve: strucutrally normal, no severe PIor PS Interatrial septum: negative color flow for R to L shunt, negative bubble study Ascending aorta: no severe plaquing mild atheromatous disease Echocardiogram, 06/18/2024: Normal left ventricular size and systolic function. Mild concentric left ventricular hypertrophy with grade II diastolic dysfunction. Normal right ventricular size and systolic function. No hemodynamically significant valvular disease. No evidence of shunting based on bubble study. PA systolic pressure is not adequately estimated Carotid Doppler, 06/17/2024: 1. Less than 50% stenosis of the right internal carotid artery. 2. Less than 50% stenosis of the left internal carotid artery. 3. High-grade stenosis of the left external carotid artery. CT head, 06/17/2024: 1. Moderate size area of hypodense changes in the medial left temporal occipital lobes with loss of fuentes-white matter differentiation compatible with age-indeterminate infarct, presumed to be acute to subacute. There is no evidence of acute intracranial hemorrhage. 2. Chronic ischemic changes as described above. 3. Paranasal sinus disease (There is a chronic infarct extending from the right chapman radiata into the right basal ganglia. There also likely small chronic infarcts in the right and left posterior cerebellum.) MRI head, 06/17/2024: 1. Large subacute left occipital infarct with a smaller focus of subacute ischemia in the left basal ganglia. No evidence of hemorrhagic complication at this time. Recommend clinical correlation and continued follow- up. [id number] changes chronic microvascular ischemic disease. Blooming artifact in the bilateral basal ganglia could be related to microangiopathy. Chronic severe pansinusitis vital signs Vital Sign Date Time Temp Pulse Resp B/P (MAP) Pulse Ox O2 Delivery O2 Flow Rate FiO2 06/22/24 17:00 98.0 72 21 148/66 (93) 93 98.0 06/22/24 08:00 Room Air* 0 21 Total Intake and Output 06/21/24 06/21/24 06/22/24 15:00 23:00 07:00 Intake Total 650 ml 0 ml Output Total 0 ml 350 ml Balance 650 ml -350 ml medications Current Medications Medications Dose Ordered Sig/Nova Route Start Time Stop Time Status Last Admin Dose Admin Morphine Sulfate 2 mg Q30M PRN IV 06/17/24 15:45 Aspirin 81 mg DAILY PO 06/18/24 10:00 06/22/24 09:38 81 MG Atorvastatin Calcium 80 mg HS PO 06/17/24 22:00 06/21/24 21:28 80 MG Enoxaparin Sodium 40 mg DAILY SC 06/18/24 10:00 UNV Enoxaparin Sodium 30 mg DAILY SC 06/18/24 10:00 06/22/24 09:38 30 MG Nifedipine 90 mg DAILY PO 06/21/24 10:00 06/22/24 09:39 90 MG Carvedilol 25 mg Q12HR PO 06/22/24 10:00 06/22/24 09:39 25 MG Lorazepam 1 mg Q6HP PRN IV 06/22/24 21:00 objective General: the patient is well developed and nourished. No acute distress. MENTAL STATUS: Subjective SPEECH, LANGUAGE, HIGHER CORTICAL FUNCTION: no aphasia, he has dysathria. CRANIAL NERVES: Questionable right hemianopsia. Pupils are equal, round and reactive. EOMs full and conjugate. Facial sensation intact in all three divisions bilaterally. Mandibular strength intact. Facial muscles symmetrical and strength intact. SENSATION: Sensation to touch and pinprick is unremarkable MOTOR: Normal tone in the upper and lower extremity. Normal muscle bulk. No fasciculations. No abnormal movements or posturing. Muscle strength of the major groups in the upper extremities is 5/5. The lower extremity is 5/5 REFLEXES: Deep tendon reflexes are symmetrical. No pathological reflexes. CEREBELLAR/COORDINATION: Deferred GAIT/STATION: deferred laboratory and microbiology Laboratory Tests 06/22/24 09:41 Test 06/22/24 09:41 Range/Units Serum Glucose 160 H 74-106 mg/dL Problem List Acute stroke with acute right-sided weakness, possible right homonymous hemianopsia Chronic stroke with residual left-sided weakness Altered mental status, cognitive dysfunction Metabolic encephalopathy Partial complex seizure The mental status looks worse today ? Enlarged acute stroke ? Fluctuating of mental status/encephalopathy Assessment/Plan Monitoring Supportive treatment Telemetry EEG Aspirin 81 mg daily Lipitor 80 mg daily Haldol 2.5 mg intramuscular Q 8 hours p.r.n. for agitation DVT prophylaxis/Lovenox More recommendation per clinical course Prognosis: Poor This medical document was created using an electronic medical record system with [employer] dictation system. Although this document has been carefully reviewed, there may still be some phonetic and typographical errors. These areas are purely typographical due to imperfections of the software programs, and do not reflect any compromise in the patient's medical care. Prognosis poor Plan discussed with: Other Total Time (mins): 40 SALOME OLMEDO MD Jun 22, 2024 21:26
[2024-06-22] MEDS: SODIUM CHLORIDE 0.9% 1,000 ML IV ONE (22:36)
[2024-06-23] VITALS (8 sets, daily range): BP systolic 126–148; BP diastolic 57–63; PULSE 50–70; RESP 17–20; TEMP 97.6–98.3; O2SAT 89–97
[2024-06-23] MEDS ORDERED: HALOPERIDOL LACTATE 5 MG/ML INJ VIAL IM PRN (06:45)
[2024-06-23 06:53] LABS: Anion Gap 8 (5-15); Carbon Dioxide 25 mmol/L (20-31); Potassium 3.7 mmol/L (3.5-5.1); Sodium 145 mmol/L (136-145)
[2024-06-23 06:55] LABS: Calcium 8.3 mg/dL (8.7-10.4)
[2024-06-23 06:59] LABS: BUN/Creatinine Ratio 11.7 (10.0-20.0)
[2024-06-23 07:00] LABS: Blood Urea Nitrogen 27 mg/dL (9-23); Chloride 112 mmol/L (98-107); Glucose 114 mg/dL (74-106)
[2024-06-23 07:15] LABS: Basophils # (auto) 0.1 10 ^3/uL (0-0.2); Eosinophils # (auto) 0.3 10 ^3/uL (0-0.8); Eosinophils % (auto) 3.3 % (0.0-7.0); Hematocrit 35.1 % (41.0-53.0); Hemoglobin 11.5 g/dL (13.5-17.5); Lymphocytes # (auto) 1.8 10 ^3/uL (0.4-5.4); Lymphocytes % (auto) 19.3 % (10.0-50.0); Mean Corpuscular Hgb Conc. 32.9 g/dL (32.0-36.0); Mean Corpuscular Volume 85.1 fL (80.0-100.0); Monocytes # (auto) 0.8 10 ^3/uL (0-1.3); Monocytes % (auto) 8.5 % (0.0-12.0); Neutrophils # (auto) 6.2 10 ^3/uL (1.6-8.6); Neutrophils % (auto) 67.9 % (37.0-80.0); Nucleated Red Blood Cells % 0.1 %; Platelet Count (auto) 188 10^3/uL (140-450); Red Blood Cells 4.13 10^6/uL (4.5-5.90); Red Cell Distribution Width 13.3 % (11.8-14.3); White Blood Cell 9.1 10^3/uL (4.4-10.8)
[2024-06-23 08:21] LABS: Giant Platelets Moderate; Large Platelets FEW
[2024-06-23 08:22] LABS: Platelet Estimate Adequa
[2024-06-23] MEDS: NIFEdipine ER 30 MG TAB PO SCH (10:01)
--- NOTE | 2024-06-23 10:22 | DVHPN2 ---
Progress Note - Dictate Date Seen: Jun 23, 2024 Medical Necessity Reason Pt with a Central, PICC or Fol: No Subjective Mr. Herminio Gale is a 69 years old right-handed gentleman with a history of hypertension, diabetes, dyslipidemia, chronic stroke with residual left-sided weakness, the patient was was brought to the [facility] on 06/17/2024 with a chief company of left-sided numbness. I have seen and examined the patient, I have talked to his nurse, sitter and other medical staff. He was doing fine now, awake, oriented to person place, reasonable social skills, he moves both arms and legs with no problem, and this no definite evidence of visual field cut Earlier today, the patient was was only oriented to himself, and he reported not able to see MRI brain report is pending UDS, 06/17/2024: Negative Plasma alcohol, 06/17/2024: 3 Urinalysis, 06/17/2024: Unremarkable CBC, 06/17/2024: Unremarkable PTT/INR/PTT, 06/17/2024: 11.3/1.07/28.9 BUN/CR, 06/17/2024: 24/2.24, 06/08/2024: 25/2.34 HGB A1c, 06/17/2024: 7 Liver function tests, 06/17/2024: Unremarkable Vitamin B12, 06/17/2024: 715 Folic acid, 06/17/2024: 12.74 TSH, 06/2024: 2.29 TG/HDL/LDL/HDL, 06/17/2024: 137/207/145/47 UMM, 06/19/2024: Left Ventricle: Normal LV size and function, LVEF estimated at 60% Right Ventricle: NOrmal RV size and function Left atrium: enlarged, smoke in [place] Right atrium: mild enlarged Left atrial appendage: no thrombus noted, decreased velocity on PW monitoring Aortic valve: trileaflet valve, no severe or AI Mitral Valve: structurally normal, mild to moderate mitral regurg, no MS Tricuspid Valve: mild tricuspid regurg, no TS Pulmonic Valve: strucutrally normal, no severe PIor PS Interatrial septum: negative color flow for R to L shunt, negative bubble study Ascending aorta: no severe plaquing mild atheromatous disease Echocardiogram, 06/18/2024: Normal left ventricular size and systolic function. Mild concentric left ventricular hypertrophy with grade II diastolic dysfunction. Normal right ventricular size and systolic function. No hemodynamically significant valvular disease. No evidence of shunting based on bubble study. PA systolic pressure is not adequately estimated Carotid Doppler, 06/17/2024: 1. Less than 50% stenosis of the right internal carotid artery. 2. Less than 50% stenosis of the left internal carotid artery. 3. High-grade stenosis of the left external carotid artery. CT head, 06/17/2024: 1. Moderate size area of hypodense changes in the medial left temporal occipital lobes with loss of fuentes-white matter differentiation compatible with age-indeterminate infarct, presumed to be acute to subacute. There is no evidence of acute intracranial hemorrhage. 2. Chronic ischemic changes as described above. 3. Paranasal sinus disease (There is a chronic infarct extending from the right chapman radiata into the right basal ganglia. There also likely small chronic infarcts in the right and left posterior cerebellum.) MRI head, 06/17/2024: 1. Large subacute left occipital infarct with a smaller focus of subacute ischemia in the left basal ganglia. No evidence of hemorrhagic complication at this time. Recommend clinical correlation and continued follow- up. [id number] changes chronic microvascular ischemic disease. Blooming artifact in the bilateral basal ganglia could be related to microangiopathy. Chronic severe pansinusitis vital signs Vital Sign Date Time Temp Pulse Resp B/P (MAP) Pulse Ox O2 Delivery O2 Flow Rate FiO2 06/23/24 10:01 140/62 06/23/24 10:01 67 06/23/24 05:00 98.1 20 93 98.1 06/22/24 20:00 Room Air* 0 21 Total Intake and Output 06/22/24 06/22/24 06/23/24 15:00 23:00 07:00 Intake Total 700 ml 450 ml 200 ml Output Total 650 ml 400 ml Balance 700 ml -200 ml -200 ml medications Current Medications Medications Dose Ordered Sig/Nova Route Start Time Stop Time Status Last Admin Dose Admin Aspirin 81 mg DAILY PO 06/18/24 10:00 06/23/24 10:00 81 MG Atorvastatin Calcium 80 mg HS PO 06/17/24 22:00 06/22/24 22:35 80 MG Enoxaparin Sodium 40 mg DAILY SC 06/18/24 10:00 UNV Enoxaparin Sodium 30 mg DAILY SC 06/18/24 10:00 06/23/24 10:00 30 MG Carvedilol 25 mg Q12HR PO 06/22/24 10:00 06/23/24 10:01 25 MG Nifedipine 60 mg DAILY PO 06/23/24 10:00 06/23/24 10:01 60 MG Haloperidol Lactate 2.5 mg Q8HP PRN IM 06/23/24 06:45 objective General: the patient is well developed and nourished. No acute distress. MENTAL STATUS: Subjective SPEECH, LANGUAGE, HIGHER CORTICAL FUNCTION: no aphasia, he has dysathria. CRANIAL NERVES: Pupils are equal, round and reactive. EOMs full and conjugate. Facial sensation intact in all three divisions bilaterally. Mandibular strength intact. Facial muscles symmetrical and strength intact. SENSATION: Sensation to touch and pinprick is unremarkable MOTOR: Normal tone in the upper and lower extremity. Normal muscle bulk. No fasciculations. No abnormal movements or posturing. Muscle strength of the major groups in the upper extremities is 5/5. The lower extremity is 5/5 REFLEXES: Deep tendon reflexes are symmetrical. No pathological reflexes. CEREBELLAR/COORDINATION: Deferred GAIT/STATION: deferred laboratory and microbiology Laboratory Tests 06/23/24 06:24 Test 06/23/24 06:24 Range/Units Serum Glucose 114 H 74-106 mg/dL Problem List Acute stroke with acute right-sided weakness ? right homonymous hemianopsia Chronic stroke with residual left-sided weakness Altered mental status, cognitive dysfunction Metabolic encephalopathy Partial complex seizure The mental status looks worse today ? Enlarged acute stroke ? Fluctuating of mental status/encephalopathy Assessment/Plan Monitoring Supportive treatment Telemetry EEG Aspirin 81 mg daily Lipitor 80 mg daily Haldol 2.5 mg intramuscular Q 8 hours p.r.n. for agitation DVT prophylaxis/Lovenox Sitter More recommendation per clinical course This medical document was created using an electronic medical record system with [employer] dictation system. Although this document has been carefully reviewed, there may still be some phonetic and typographical errors. These areas are purely typographical due to imperfections of the software programs, and do not reflect any compromise in the patient's medical care. Prognosis poor Plan discussed with: Other SALOME OLMEDO MD Jun 23, 2024 10:22
--- NOTE | 2024-06-23 12:34 | DVH ---
PROCEDURE: BRAIN HEAD WO CONTRAST INDICATION: worsening B/L vision, ?occipital stroke progression EXAM DATE: 06/22/2024 02:45 PM COMPARISON: MRI BRAIN HEAD WO CONTRAST on DOS: 06/17/24 TECHNIQUE: MRI of the brain without intravenous contrast. FINDINGS: Left occipital infarct appears enlarged compared to prior. Only diffusion- weighted images were obtained. No other obvious acute finding identified. Right maxillary sinus disease is noted. IMPRESSION: 1. Limited exam. Only diffusion-weighted images were obtained. Left occipital infarct has increased in size compared to prior consistent with ongoing ischemia. No definite other acute finding identified. Recommend clinical correlation and continued follow-up. HS:Y ONY GOMEZ
--- NOTE | 2024-06-23 17:27 | DVHPN2 ---
Progress Note - Dictate Date Seen: Jun 23, 2024 Medical Necessity Reason Pt with a Central, PICC or Fol: No Subjective MRI results noted vital signs Vital Sign Date Time Temp Pulse Resp B/P (MAP) Pulse Ox O2 Delivery O2 Flow Rate FiO2 06/23/24 10:01 140/62 06/23/24 10:01 67 06/23/24 08:00 Room Air* 0 21 06/23/24 05:00 98.1 20 93 98.1 Total Intake and Output 06/22/24 06/22/24 06/23/24 15:00 23:00 07:00 Intake Total 700 ml 450 ml 200 ml Output Total 650 ml 400 ml Balance 700 ml -200 ml -200 ml medications Current Medications Medications Dose Ordered Sig/Nova Route Start Time Stop Time Status Last Admin Dose Admin Aspirin 81 mg DAILY PO 06/18/24 10:00 06/23/24 10:00 81 MG Atorvastatin Calcium 80 mg HS PO 06/17/24 22:00 06/22/24 22:35 80 MG Enoxaparin Sodium 40 mg DAILY SC 06/18/24 10:00 UNV Enoxaparin Sodium 30 mg DAILY SC 06/18/24 10:00 06/23/24 10:00 30 MG Carvedilol 25 mg Q12HR PO 06/22/24 10:00 06/23/24 10:01 25 MG Nifedipine 60 mg DAILY PO 06/23/24 10:00 06/23/24 10:01 60 MG Haloperidol Lactate 2.5 mg Q8HP PRN IM 06/23/24 06:45 objective HEENT: No evidence of JVD, no oral ulcers. Pulmonary: Lungs are clear on auscultation bilaterally Cardiovascular S1-S2, no S3 or S4 Abdomen: Bowel sounds positive, soft no rebound tenderness Skin: No rash Neurological: Alert, oriented, right-sided hemiparesis laboratory and microbiology Laboratory Tests 06/23/24 06:24 Test 06/23/24 06:24 Range/Units Serum Glucose 114 H 74-106 mg/dL Problem List 1. Acute kidney injury superimposed on chronic kidney disease . 2. Hypokalemia 3. Acute left occipital ischemic CVA 4. Right-sided hemiparesis 5. Poorly-controlled hypertension 6. Diabetes type 2 with nephropathy 7. Proteinuria, nephrotic range Assessment/Plan Plan: Creatinine in Feb 2024 was 1.5 mg/dl . Currently at 2.3 This seems to be his new baseline due to poorly controlled DM . renal ultrasound with no acute findings BP control MRI results noted . Hold SGLT2 inhibitor, MADISON inhibitor and ARB for now . Plan discussed with: Other MADHURI MARTINEZ MD Jun 23, 2024 17:27
--- NOTE | 2024-06-23 21:47 | DVHPNRES ---
Progress Note Date Seen: Jun 23, 2024 Resident Creating Document: ELEANOR BROWNJACKELINE RESIDENT Medical Necessity Reason Pt with a Central, PICC or Fol: No Subjective Review of Systems Patient was alert and oriented X 1 at the time of examination.. Denies chest pain, shortness of breath denies nausea, vomiting, diarrhea. weakness improving on the right and the left side of the body Has poor vision bilaterally Hematuria noted in the rivera's catheter Objective vital signs Vital Sign Date Time Temp Pulse Resp B/P (MAP) Pulse Ox O2 Delivery O2 Flow Rate FiO2 06/23/24 21:09 70 142/67 06/23/24 17:00 97.6 18 93 97.6 06/23/24 08:00 Room Air* 0 21 Total Intake and Output 06/22/24 06/22/24 06/23/24 15:00 23:00 07:00 Intake Total 700 ml 450 ml 200 ml Output Total 650 ml 400 ml Balance 700 ml -200 ml -200 ml medications Current Medications Medications Dose Ordered Sig/Nova Route Start Time Stop Time Status Last Admin Dose Admin Aspirin 81 mg DAILY PO 06/18/24 10:00 06/23/24 10:00 81 MG Atorvastatin Calcium 80 mg HS PO 06/17/24 22:00 06/23/24 21:10 80 MG Enoxaparin Sodium 40 mg DAILY SC 06/18/24 10:00 UNV Enoxaparin Sodium 30 mg DAILY SC 06/18/24 10:00 06/23/24 10:00 30 MG Carvedilol 25 mg Q12HR PO 06/22/24 10:00 06/23/24 21:09 25 MG Nifedipine 60 mg DAILY PO 06/23/24 10:00 06/23/24 10:01 60 MG Haloperidol Lactate 2.5 mg Q8HP PRN IM 06/23/24 06:45 Examination Constitutional: Patient alert and oriented x1 and does not appear to be in any acute distress. Gen - no pallor, no icterus, no cyanosis, no clubbing, no LAD, 2+ edema in both the feet Skin - Patients skin is warm and dry. HEENT - normocephalic, atraumatic, moist mucous membranes. Neck - full ROM, no LAD, no JVD Pulmonary - B/L vesicular breath sounds. no crackles , no wheezing, no stridor. cardiovascular - normal S1,S2 heard. no murmurs heard. GI - soft abdomen. no hepatospleenomegaly. Bowel sounds normoactive Neurological - Right upper extremity strength 4/5, left upper extremity strength 4/5, right lower extremity strength 3/5, left lower extremity strength 4/5, no sensory deficiets. - limited exam finding as the patient was confused Cranial nerve 2- visual acuity in both left and right eye is decreased, not able to count fingers correctly Cranial nerve 3, 4, 6- extraocular movements within normal range Cranial nerve 5- facial sensation intact, jaw of opening normal Cranial nerve 7- no facial droop, , normal eye closing, Cranial nerve 8- hearing normal Cranial nerve 12- no tongue deviation laboratory and microbiology Laboratory Tests 06/23/24 06:24 Test 06/23/24 06:24 Range/Units Serum Glucose 114 H 74-106 mg/dL Problem List/Assessment/Plan Problem List/Assessment/Plan Acute ischemic stroke left basal ganglia, subacute right occipital Right-sided weakness CT head without contrast showed 1.Moderate size area of hypodense changes in the medial left temporal occipital lobes with loss of fuentes-white matter differentiation compatible with age- indeterminate infarct, presumed to be acute to subacute. There is no evidence of acute intracranial hemorrhage. 2.chronic infarct extending from the right chapman radiata into the right basal ganglia Brain MRI showed Large subacute left occipital infarct with a smaller focus of subacute ischemia in the left basal ganglia. No evidence of hemorrhagic complication at this time. [id number] changes chronic microvascular ischemic disease. Blooming artifact in the bilateral basal ganglia could be related to microangiopathy Carotid doppler shows 1. Less than 50% stenosis of the right internal carotid artery. 2. Less than 50% stenosis of the left internal carotid artery. 3. High-grade stenosis of the left external carotid artery. - aspirin 81 mg - stroke beyond the window period for thrombolysis - atorvastatin 80 mg - UMM done today FINDINGS: Left Ventricle: Normal LV size and function, LVEF estimated at 60% Right Ventricle: NOrmal RV size and function Left atrium: enlarged, smoke in [place] Right atrium: mild enlarged Left atrial appendage: no thrombus noted, decreased velocity on PW monitoring Aortic valve: trileaflet valve, no severe or AI Mitral Valve: structurally normal, mild to moderate mitral regurg, no MS Tricuspid Valve: mild tricuspid regurg, no TS Pulmonic Valve: strucutrally normal, no severe PIor PS Interatrial septum: negative color flow for R to L shunt, negative bubble study Ascending aorta: no severe plaquing mild atheromatous disease - physical therapy evaluation done, recommend SNF at discharge - Swallow evaluation done, patient cleared for mechanical soft diet - 06/22- MRI brain ordered but the patient came out of the MRI and it was not completed. Dr Teixeira informed. Permissive hypertension ? Uncontrolled hypertension NSTEMI likely type 2 ?Acute exacerbation of heart failure with preserved ejection fraction - ECG showed no acute ST segment or T-wave changes - troponins trended 74-> 68-> 67 - nifedipine increased to 90 mg and increased carvedilol to 25 mg b.i.d. - goal blood pressure SBP<= 160 mmHg Uncontrolled type 2 diabetes mellitus HbA1c 7% - patient's blood glucose was in control without insulin for 2 days, ISS d/janusz Dyslipidemia On atorvastatin 80 mg HS ELLIE on CKD likely hemodynamically mediated d/t VMN - FENa 4.6% - blood pressure control - on IV fluids Hypokalemia Replaced Patient will be discharged to SNF for physical therapy. Goals of care discussed with the patient and the family for over 21minutes. Full code Plan discussed with Plan discussed with: Son My Orders My Orders Orders - TAYLOR BROWN Procedure Category Date Status Time Nifedipine Er PHA 06/23/24 In Process (Procardia Xl 10:00 Haloperidol Lactate PHA 06/23/24 In Process Injection (Haldol) 06:45 Discontinue Tele HAYDEE 06/23/24 In Process 18:11 Transfer Orders XFER 06/23/24 Transmitted 18:11 TAYLOR BROWN RESIDENT Jun 23, 2024 21:47
[2024-06-24] VITALS (9 sets, daily range): BP systolic 148–173; BP diastolic 64–100; PULSE 62–70; RESP 16–19; TEMP 97.6–98.9; O2SAT 95–100
[2024-06-24 07:06] LABS: Basophils # (auto) 0.1 10 ^3/uL (0-0.2); Basophils % (auto) 0.8 % (0.0-2.0); Eosinophils # (auto) 0.5 10 ^3/uL (0-0.8); Eosinophils % (auto) 5.5 % (0.0-7.0); Hematocrit 36.3 % (41.0-53.0); Lymphocytes # (auto) 2.2 10 ^3/uL (0.4-5.4); Lymphocytes % (auto) 24.3 % (10.0-50.0); Mean Corpuscular Hemoglobin 28.1 pg (28.0-32.0); Mean Corpuscular Hgb Conc. 33.1 g/dL (32.0-36.0); Mean Corpuscular Volume 84.7 fL (80.0-100.0); Monocytes # (auto) 0.8 10 ^3/uL (0-1.3); Monocytes % (auto) 9.2 % (0.0-12.0); Neutrophils # (auto) 5.5 10 ^3/uL (1.6-8.6); Neutrophils % (auto) 60.2 % (37.0-80.0); Nucleated Red Blood Cells % 0.2 %; Platelet Count (auto) 186 10^3/uL (140-450); Red Blood Cells 4.28 10^6/uL (4.5-5.90); Red Cell Distribution Width 13.4 % (11.8-14.3); White Blood Cell 9.1 10^3/uL (4.4-10.8)
[2024-06-24 07:21] LABS: Alanine Aminotransferase 28 U/L (7-40); Albumin 3.4 g/dL (3.2-4.8); Alkaline Phosphatase 67 U/L (46-116); Anion Gap 6 (5-15); Aspartate Aminotransferase 39 U/L (13-40); BUN/Creatinine Ratio 10.9 (10.0-20.0); Bilirubin, Total 0.4 mg/dL (0.2-1.0); Carbon Dioxide 27 mmol/L (20-31); Glucose 101 mg/dL (74-106); Potassium 3.6 mmol/L (3.5-5.1); Sodium 145 mmol/L (136-145)
[2024-06-24 07:22] LABS: Total Protein 5.8 g/dL (5.7-8.2)
[2024-06-24 07:25] LABS: Blood Urea Nitrogen 25 mg/dL (9-23); Calcium 8.4 mg/dL (8.7-10.4); Chloride 112 mmol/L (98-107)
[2024-06-24 09:34] LABS: Large Platelets FEW
[2024-06-24 09:35] LABS: Giant Platelets Few; Platelet Estimate Adequate
--- NOTE | 2024-06-24 10:51 | DVHPN2 ---
Progress Note - Dictate Date Seen: Jun 24, 2024 Medical Necessity Reason Pt with a Central, PICC or Fol: No Subjective MRI results noted vital signs Vital Sign Date Time Temp Pulse Resp B/P (MAP) Pulse Ox O2 Delivery O2 Flow Rate FiO2 06/24/24 09:29 63 153/100 06/24/24 09:00 98.6 18 98 98.6 06/23/24 20:00 Room Air* 0 21 Total Intake and Output 06/23/24 06/23/24 06/24/24 15:00 23:00 07:00 Intake Total 500 ml 20 ml Output Total 450 ml 400 ml Balance 50 ml -380 ml medications Current Medications Medications Dose Ordered Sig/Nova Route Start Time Stop Time Status Last Admin Dose Admin Aspirin 81 mg DAILY PO 06/18/24 10:00 06/24/24 09:28 81 MG Atorvastatin Calcium 80 mg HS PO 06/17/24 22:00 06/23/24 21:10 80 MG Enoxaparin Sodium 40 mg DAILY SC 06/18/24 10:00 UNV Enoxaparin Sodium 30 mg DAILY SC 06/18/24 10:00 06/24/24 09:27 30 MG Carvedilol 25 mg Q12HR PO 06/22/24 10:00 06/24/24 09:29 25 MG Nifedipine 60 mg DAILY PO 06/23/24 10:00 06/24/24 09:28 60 MG Haloperidol Lactate 2.5 mg Q8HP PRN IM 06/23/24 06:45 objective HEENT: No evidence of JVD, no oral ulcers. Pulmonary: Lungs are clear on auscultation bilaterally Cardiovascular S1-S2, no S3 or S4 Abdomen: Bowel sounds positive, soft no rebound tenderness Skin: No rash Neurological: right-sided hemiparesis laboratory and microbiology Laboratory Tests 06/24/24 06:32 Test 06/24/24 06:32 Range/Units Serum Glucose 101 74-106 mg/dL Problem List 1. Acute kidney injury superimposed on chronic kidney disease . 2. Hypokalemia 3. Acute left occipital ischemic CVA with recent MRI showing increase in size of infarct 4. Right-sided hemiparesis 5. Poorly-controlled hypertension 6. Diabetes type 2 with nephropathy 7. Proteinuria, nephrotic range Assessment/Plan Plan: Creatinine in Feb 2024 was 1.5 mg/dl . Currently at 2.3 This seems to be his new baseline due to poorly controlled DM . renal ultrasound with no acute findings BP control MRI results noted . Hold SGLT2 inhibitor, MADISON inhibitor and ARB for now . Prognosis guarded Plan discussed with: MADHURI Horton MD Jun 24, 2024 10:51
--- NOTE | 2024-06-24 10:56 | DVHPN2 ---
Progress Note - Dictate Date Seen: Jun 24, 2024 Medical Necessity Reason Pt with a Central, PICC or Fol: No Subjective This is not a follow up note UDS, 06/17/2024: Negative Plasma alcohol, 06/17/2024: 3 Urinalysis, 06/17/2024: Unremarkable CBC, 06/17/2024: Unremarkable PTT/INR/PTT, 06/17/2024: 11.3/1.07/28.9 BUN/CR, 06/17/2024: 24/2.24, 06/08/2024: 25/2.34 HGB A1c, 06/17/2024: 7 Liver function tests, 06/17/2024: Unremarkable Vitamin B12, 06/17/2024: 715 Folic acid, 06/17/2024: 12.74 TSH, 06/2024: 2.29 TG/HDL/LDL/HDL, 06/17/2024: 137/207/145/47 UMM, 06/19/2024: Left Ventricle: Normal LV size and function, LVEF estimated at 60% Right Ventricle: NOrmal RV size and function Left atrium: enlarged, smoke in [place] Right atrium: mild enlarged Left atrial appendage: no thrombus noted, decreased velocity on PW monitoring Aortic valve: trileaflet valve, no severe or AI Mitral Valve: structurally normal, mild to moderate mitral regurg, no MS Tricuspid Valve: mild tricuspid regurg, no TS Pulmonic Valve: strucutrally normal, no severe PIor PS Interatrial septum: negative color flow for R to L shunt, negative bubble study Ascending aorta: no severe plaquing mild atheromatous disease Echocardiogram, 06/18/2024: Normal left ventricular size and systolic function. Mild concentric left ventricular hypertrophy with grade II diastolic dysfunction. Normal right ventricular size and systolic function. No hemodynamically significant valvular disease. No evidence of shunting based on bubble study. PA systolic pressure is not adequately estimated Carotid Doppler, 06/17/2024: 1. Less than 50% stenosis of the right internal carotid artery. 2. Less than 50% stenosis of the left internal carotid artery. 3. High-grade stenosis of the left external carotid artery. CT head, 06/17/2024: 1. Moderate size area of hypodense changes in the medial left temporal occipital lobes with loss of fuentes-white matter differentiation compatible with age-indeterminate infarct, presumed to be acute to subacute. There is no evidence of acute intracranial hemorrhage. 2. Chronic ischemic changes as described above. 3. Paranasal sinus disease (There is a chronic infarct extending from the right chapman radiata into the right basal ganglia. There also likely small chronic infarcts in the right and left posterior cerebellum.) MRI head, 06/17/2024: 1. Large subacute left occipital infarct with a smaller focus of subacute ischemia in the left basal ganglia. No evidence of hemorrhagic complication at this time. Recommend clinical correlation and continued follow- up. [id number] changes chronic microvascular ischemic disease. Blooming artifact in the bilateral basal ganglia could be related to microangiopathy. Chronic severe pansinusitis MRI brain, 06/22/2024: 1. Limited exam. Only diffusion-weighted images were obtained. Left occipital infarct has increased in size compared to prior consistent with ongoing ischemia. No definite other acute finding identified. Recommend clinical correlation and continued follow-up. vital signs Vital Sign Date Time Temp Pulse Resp B/P (MAP) Pulse Ox O2 Delivery O2 Flow Rate FiO2 06/24/24 09:29 63 153/100 06/24/24 09:00 98.6 18 98 98.6 06/23/24 20:00 Room Air* 0 21 Total Intake and Output 06/23/24 06/23/24 06/24/24 15:00 23:00 07:00 Intake Total 500 ml 20 ml Output Total 450 ml 400 ml Balance 50 ml -380 ml medications Current Medications Medications Dose Ordered Sig/Nova Route Start Time Stop Time Status Last Admin Dose Admin Aspirin 81 mg DAILY PO 06/18/24 10:00 06/24/24 09:28 81 MG Atorvastatin Calcium 80 mg HS PO 06/17/24 22:00 06/23/24 21:10 80 MG Enoxaparin Sodium 40 mg DAILY SC 06/18/24 10:00 UNV Enoxaparin Sodium 30 mg DAILY SC 06/18/24 10:00 06/24/24 09:27 30 MG Carvedilol 25 mg Q12HR PO 06/22/24 10:00 06/24/24 09:29 25 MG Nifedipine 60 mg DAILY PO 06/23/24 10:00 06/24/24 09:28 60 MG Haloperidol Lactate 2.5 mg Q8HP PRN IM 06/23/24 06:45 objective General: the patient is well developed and nourished. No acute distress. MENTAL STATUS: Subjective SPEECH, LANGUAGE, HIGHER CORTICAL FUNCTION: no aphasia, he has dysathria. CRANIAL NERVES: Pupils are equal, round and reactive. EOMs full and conjugate. Facial sensation intact in all three divisions bilaterally. Mandibular strength intact. Facial muscles symmetrical and strength intact. SENSATION: Sensation to touch and pinprick is unremarkable MOTOR: Normal tone in the upper and lower extremity. Normal muscle bulk. No fasciculations. No abnormal movements or posturing. Muscle strength of the major groups in the upper extremities is 5/5. The lower extremity is 5/5 REFLEXES: Deep tendon reflexes are symmetrical. No pathological reflexes. CEREBELLAR/COORDINATION: Deferred GAIT/STATION: deferred laboratory and microbiology Laboratory Tests 06/24/24 06:32 Test 06/24/24 06:32 Range/Units Serum Glucose 101 74-106 mg/dL Problem List Acute stroke with acute right-sided weakness ? right homonymous hemianopsia Chronic stroke with residual left-sided weakness Altered mental status, cognitive dysfunction Metabolic encephalopathy Partial complex seizure The mental status looks worse today ? Enlarged acute stroke ? Fluctuating of mental status/encephalopathy Assessment/Plan Monitoring Supportive treatment Telemetry EEG Aspirin 81 mg daily Lipitor 80 mg daily Haldol 2.5 mg intramuscular Q 8 hours p.r.n. for agitation DVT prophylaxis/Lovenox Sitter More recommendation per clinical course This medical document was created using an electronic medical record system with [employer] dictation system. Although this document has been carefully reviewed, there may still be some phonetic and typographical errors. These areas are purely typographical due to imperfections of the software programs, and do not reflect any compromise in the patient's medical care. Plan discussed with: Other SALOME OLMEDO MD Jun 24, 2024 10:56
--- NOTE | 2024-06-24 11:10 | DVHPN2 ---
Progress Note - Dictate Date Seen: Jun 24, 2024 Medical Necessity Reason Pt with a Central, PICC or Fol: No Subjective Mr. Herminio Gale is a 69 years old right-handed gentleman with a history of hypertension, diabetes, dyslipidemia, chronic stroke with residual left-sided weakness, the patient was was brought to the [facility] on 06/17/2024 with a chief company of left-sided numbness. I have seen and examined the patient, I have talked to his nurse, megan. He is not doing but today, he has been very sleepy, he was only oriented to himself, he follows minimally, he only moves the arms and legs a little bit UDS, 06/17/2024: Negative Plasma alcohol, 06/17/2024: 3 Urinalysis, 06/17/2024: Unremarkable CBC, 06/17/2024: Unremarkable PTT/INR/PTT, 06/17/2024: 11.3/1.07/28.9 BUN/CR, 06/17/2024: 24/2.24, 06/08/2024: 25/2.34 HGB A1c, 06/17/2024: 7 Liver function tests, 06/17/2024: Unremarkable Vitamin B12, 06/17/2024: 715 Folic acid, 06/17/2024: 12.74 TSH, 06/2024: 2.29 TG/HDL/LDL/HDL, 06/17/2024: 137/207/145/47 UMM, 06/19/2024: Left Ventricle: Normal LV size and function, LVEF estimated at 60% Right Ventricle: NOrmal RV size and function Left atrium: enlarged, smoke in [place] Right atrium: mild enlarged Left atrial appendage: no thrombus noted, decreased velocity on PW monitoring Aortic valve: trileaflet valve, no severe or AI Mitral Valve: structurally normal, mild to moderate mitral regurg, no MS Tricuspid Valve: mild tricuspid regurg, no TS Pulmonic Valve: strucutrally normal, no severe PIor PS Interatrial septum: negative color flow for R to L shunt, negative bubble study Ascending aorta: no severe plaquing mild atheromatous disease Echocardiogram, 06/18/2024: Normal left ventricular size and systolic function. Mild concentric left ventricular hypertrophy with grade II diastolic dysfunction. Normal right ventricular size and systolic function. No hemodynamically significant valvular disease. No evidence of shunting based on bubble study. PA systolic pressure is not adequately estimated Carotid Doppler, 06/17/2024: 1. Less than 50% stenosis of the right internal carotid artery. 2. Less than 50% stenosis of the left internal carotid artery. 3. High-grade stenosis of the left external carotid artery. CT head, 06/17/2024: 1. Moderate size area of hypodense changes in the medial left temporal occipital lobes with loss of fuentes-white matter differentiation compatible with age-indeterminate infarct, presumed to be acute to subacute. There is no evidence of acute intracranial hemorrhage. 2. Chronic ischemic changes as described above. 3. Paranasal sinus disease (There is a chronic infarct extending from the right chapman radiata into the right basal ganglia. There also likely small chronic infarcts in the right and left posterior cerebellum.) MRI head, 06/17/2024: 1. Large subacute left occipital infarct with a smaller focus of subacute ischemia in the left basal ganglia. No evidence of hemorrhagic complication at this time. Recommend clinical correlation and continued follow- up. [id number] changes chronic microvascular ischemic disease. Blooming artifact in the bilateral basal ganglia could be related to microangiopathy. Chronic severe pansinusitis MRI brain, 06/22/2024: 1. Limited exam. Only diffusion-weighted images were obtained. Left occipital infarct has increased in size compared to prior consistent with ongoing ischemia. No definite other acute finding identified. Recommend clinical correlation and continued follow-up. vital signs Vital Sign Date Time Temp Pulse Resp B/P (MAP) Pulse Ox O2 Delivery O2 Flow Rate FiO2 06/24/24 09:29 63 153/100 06/24/24 09:00 98.6 18 98 98.6 06/23/24 20:00 Room Air* 0 21 Total Intake and Output 06/23/24 06/23/24 06/24/24 15:00 23:00 07:00 Intake Total 500 ml 20 ml Output Total 450 ml 400 ml Balance 50 ml -380 ml medications Current Medications Medications Dose Ordered Sig/Nova Route Start Time Stop Time Status Last Admin Dose Admin Aspirin 81 mg DAILY PO 06/18/24 10:00 06/24/24 09:28 81 MG Atorvastatin Calcium 80 mg HS PO 06/17/24 22:00 06/23/24 21:10 80 MG Enoxaparin Sodium 40 mg DAILY SC 06/18/24 10:00 UNV Enoxaparin Sodium 30 mg DAILY SC 06/18/24 10:00 06/24/24 09:27 30 MG Carvedilol 25 mg Q12HR PO 06/22/24 10:00 06/24/24 09:29 25 MG Nifedipine 60 mg DAILY PO 06/23/24 10:00 06/24/24 09:28 60 MG Haloperidol Lactate 2.5 mg Q8HP PRN IM 06/23/24 06:45 objective General: the patient is well developed and nourished. No acute distress. MENTAL STATUS: Subjective SPEECH, LANGUAGE, HIGHER CORTICAL FUNCTION: no aphasia, he has dysathria. CRANIAL NERVES: Pupils are equal, round and reactive. EOMs full and conjugate. Facial sensation intact in all three divisions bilaterally. Mandibular strength intact. Facial muscles symmetrical and strength intact. SENSATION: Sensation to touch and pinprick is unremarkable MOTOR: Normal tone in the upper and lower extremity. Normal muscle bulk. No fasciculations. No abnormal movements or posturing. Subjective REFLEXES: Deep tendon reflexes are symmetrical. No pathological reflexes. CEREBELLAR/COORDINATION: Deferred GAIT/STATION: deferred laboratory and microbiology Laboratory Tests 06/24/24 06:32 Test 06/24/24 06:32 Range/Units Serum Glucose 101 74-106 mg/dL Problem List Acute stroke with acute right-sided weakness ? right homonymous hemianopsia Chronic stroke with residual left-sided weakness Altered mental status, cognitive dysfunction Metabolic encephalopathy Partial complex seizure The mental status looks worse today ? Enlarged acute stroke ? Fluctuating of mental status/encephalopathy Assessment/Plan Monitoring Supportive treatment Telemetry EEG Aspirin 81 mg daily Lipitor 80 mg daily Haldol 2.5 mg intramuscular Q 8 hours p.r.n. for agitation DVT prophylaxis/Lovenox Sitter More recommendation per clinical course This medical document was created using an electronic medical record system with [employer] dictation system. Although this document has been carefully reviewed, there may still be some phonetic and typographical errors. These areas are purely typographical due to imperfections of the software programs, and do not reflect any compromise in the patient's medical care. Prognosis poor Plan discussed with: Other SALOME OLMEDO MD Jun 24, 2024 11:10
[2024-06-24] MEDS: NIFEdipine ER 30 MG TAB PO ONE (14:52)
--- NOTE | 2024-06-24 21:04 | DVHPNRES ---
Progress Note Date Seen: Jun 24, 2024 Resident Creating Document: FATOUTAYLOR PETIT RESIDENT Medical Necessity Reason Pt with a Central, PICC or Fol: No Subjective Review of Systems Patient was alert and oriented X 1 at the time of examination.. Denies chest pain, shortness of breath denies nausea, vomiting, diarrhea. Has poor vision bilaterally Hematuria improving in the rivera's catheter bag Objective vital signs Vital Sign Date Time Temp Pulse Resp B/P (MAP) Pulse Ox O2 Delivery O2 Flow Rate FiO2 06/24/24 16:41 98.9 65 19 160/64 (96) 100 98.9 06/24/24 08:10 Room Air* 0 21 Total Intake and Output 06/23/24 06/23/24 06/24/24 15:00 23:00 07:00 Intake Total 500 ml 20 ml Output Total 450 ml 400 ml Balance 50 ml -380 ml medications Current Medications Medications Dose Ordered Sig/Nova Route Start Time Stop Time Status Last Admin Dose Admin Aspirin 81 mg DAILY PO 06/18/24 10:00 06/24/24 09:28 81 MG Atorvastatin Calcium 80 mg HS PO 06/17/24 22:00 06/23/24 21:10 80 MG Enoxaparin Sodium 40 mg DAILY SC 06/18/24 10:00 UNV Enoxaparin Sodium 30 mg DAILY SC 06/18/24 10:00 06/24/24 09:27 30 MG Carvedilol 25 mg Q12HR PO 06/22/24 10:00 06/24/24 09:29 25 MG Nifedipine 60 mg DAILY PO 06/23/24 10:00 06/24/24 09:28 60 MG Haloperidol Lactate 2.5 mg Q8HP PRN IM 06/23/24 06:45 Examination Constitutional: Patient alert and oriented x1 and does not appear to be in any acute distress. Gen - no pallor, no icterus, no cyanosis, no clubbing, no LAD, 2+ edema in both the feet Skin - Patients skin is warm and dry. HEENT - normocephalic, atraumatic, moist mucous membranes. Neck - full ROM, no LAD, no JVD Pulmonary - B/L vesicular breath sounds. no crackles , no wheezing, no stridor. cardiovascular - normal S1,S2 heard. no murmurs heard. GI - soft abdomen. no hepatospleenomegaly. Bowel sounds normoactive Neurological - Right upper extremity strength 3/5, left upper extremity strength 4/5, right lower extremity strength 3/5, left lower extremity strength 4/5, no sensory deficiets. - limited exam finding as the patient was confused Cranial nerve 2- visual acuity in both left and right eye is decreased, not able to count fingers correctly Cranial nerve 3, 4, 6- extraocular movements within normal range Cranial nerve 5- facial sensation intact, jaw of opening normal Cranial nerve 7- no facial droop, , normal eye closing, Cranial nerve 8- hearing normal Cranial nerve 12- no tongue deviation laboratory and microbiology Laboratory Tests 06/24/24 06:32 Test 06/24/24 06:32 Range/Units Serum Glucose 101 74-106 mg/dL Problem List/Assessment/Plan Problem List/Assessment/Plan Acute ischemic stroke left basal ganglia, subacute right occipital Right-sided weakness CT head without contrast showed 1.Moderate size area of hypodense changes in the medial left temporal occipital lobes with loss of fuentes-white matter differentiation compatible with age- indeterminate infarct, presumed to be acute to subacute. There is no evidence of acute intracranial hemorrhage. 2.chronic infarct extending from the right chapman radiata into the right basal ganglia Brain MRI showed Large subacute left occipital infarct with a smaller focus of subacute ischemia in the left basal ganglia. No evidence of hemorrhagic complication at this time. [id number] changes chronic microvascular ischemic disease. Blooming artifact in the bilateral basal ganglia could be related to microangiopathy Carotid doppler shows 1. Less than 50% stenosis of the right internal carotid artery. 2. Less than 50% stenosis of the left internal carotid artery. 3. High-grade stenosis of the left external carotid artery. - aspirin 81 mg - stroke beyond the window period for thrombolysis - atorvastatin 80 mg - UMM done today FINDINGS: Left Ventricle: Normal LV size and function, LVEF estimated at 60% Right Ventricle: NOrmal RV size and function Left atrium: enlarged, smoke in [place] Right atrium: mild enlarged Left atrial appendage: no thrombus noted, decreased velocity on PW monitoring Aortic valve: trileaflet valve, no severe or AI Mitral Valve: structurally normal, mild to moderate mitral regurg, no MS Tricuspid Valve: mild tricuspid regurg, no TS Pulmonic Valve: strucutrally normal, no severe PIor PS Interatrial septum: negative color flow for R to L shunt, negative bubble study Ascending aorta: no severe plaquing mild atheromatous disease - physical therapy evaluation done, recommend SNF at discharge - Swallow evaluation done, patient cleared for mechanical soft diet - 06/22- MRI brain ordered but the patient came out of the MRI and it was not completed. Dr Teixeira informed. Permissive hypertension ? Uncontrolled hypertension NSTEMI likely type 2 ?Acute exacerbation of heart failure with preserved ejection fraction - ECG showed no acute ST segment or T-wave changes - troponins trended 74-> 68-> 67 - nifedipine increased to 90 mg and increased carvedilol to 25 mg b.i.d. - goal blood pressure SBP<= 160 mmHg Uncontrolled type 2 diabetes mellitus HbA1c 7% - patient's blood glucose was in control without insulin for 2 days, ISS d/janusz Dyslipidemia On atorvastatin 80 mg HS ELLIE on CKD likely hemodynamically mediated d/t VMN - FENa 4.6% - blood pressure control - nephrology consulted and assessed that the patient likely had CKD and the kidney function seems to be his new normal d/t uncontrolled T2DM Hypokalemia Replaced Patient will be discharged to SNF for physical therapy. 06/24/24 Sitter discontinued as the patient is calm today. Goals of care discussed with the patient and the family for over 21minutes. Full code Plan discussed with Plan discussed with: Other (RN ( Vinicio )) Date of Service: Jun 24, 2024 Billing Provider: JOHN CLARKE MD Common Visit Codes: [id number] INP/OBS CARE(HIGH) TAYLOR BROWN RESIDENT Jun 24, 2024 21:03 JOHN CLARKE MD Jun 24, 2024 23:02
[2024-06-25] VITALS (8 sets, daily range): BP systolic 146–163; BP diastolic 63–69; PULSE 65–75; RESP 18–19; TEMP 97.5–98.8; O2SAT 93–96
[2024-06-25 08:43] LABS: Anion Gap 10 (5-15); Carbon Dioxide 24 mmol/L (20-31); Potassium 3.6 mmol/L (3.5-5.1)
[2024-06-25 08:45] LABS: Calcium 8.4 mg/dL (8.7-10.4); Chloride 112 mmol/L (98-107); Sodium 146 mmol/L (136-145)
[2024-06-25 08:48] LABS: Glucose 81 mg/dL (74-106)
[2024-06-25 08:49] LABS: BUN/Creatinine Ratio 11.9 (10.0-20.0)
[2024-06-25 08:51] LABS: Blood Urea Nitrogen 26 mg/dL (9-23)
[2024-06-25] MEDS: NIFEdipine ER 30 MG TAB PO SCH (09:57)
[2024-06-25] MEDS ORDERED: NIFEdipine ER 30 MG TAB PO SCH (10:00)
--- NOTE | 2024-06-25 11:29 | DVHPN2 ---
Progress Note - Dictate Date Seen: Jun 25, 2024 Medical Necessity Reason Pt with a Central, PICC or Fol: No Subjective MRI results noted confused . sitter at bedside oral intake has been poor vital signs Vital Sign Date Time Temp Pulse Resp B/P (MAP) Pulse Ox O2 Delivery O2 Flow Rate FiO2 06/25/24 09:58 75 152/65 06/25/24 09:00 98.2 18 93 98.2 06/24/24 20:00 Room Air* 0 21 Total Intake and Output 06/24/24 06/24/24 06/25/24 15:00 23:00 07:00 Intake Total 120 ml Output Total 550 ml 490 ml Balance -430 ml -490 ml medications Current Medications Medications Dose Ordered Sig/Nova Route Start Time Stop Time Status Last Admin Dose Admin Aspirin 81 mg DAILY PO 06/18/24 10:00 06/25/24 09:57 81 MG Atorvastatin Calcium 80 mg HS PO 06/17/24 22:00 06/24/24 21:27 80 MG Enoxaparin Sodium 40 mg DAILY SC 06/18/24 10:00 UNV Enoxaparin Sodium 30 mg DAILY SC 06/18/24 10:00 06/25/24 09:59 30 MG Carvedilol 25 mg Q12HR PO 06/22/24 10:00 06/25/24 09:58 25 MG Haloperidol Lactate 2.5 mg Q8HP PRN IM 06/23/24 06:45 Nifedipine 60 mg DAILY PO 06/25/24 10:00 06/25/24 09:57 60 MG objective HEENT: No evidence of JVD, no oral ulcers. Pulmonary: Lungs are clear on auscultation bilaterally Cardiovascular S1-S2, no S3 or S4 Abdomen: Bowel sounds positive, soft no rebound tenderness Skin: No rash Neurological: right-sided hemiparesis laboratory and microbiology Laboratory Tests 06/25/24 07:30 06/24/24 06:32 Test 06/25/24 07:30 Range/Units Serum Glucose 81 74-106 mg/dL Problem List 1. Acute kidney injury superimposed on chronic kidney disease . 2. Hypokalemia 3. Acute left occipital ischemic CVA with recent MRI showing increase in size of infarct 4. Right-sided hemiparesis 5. Poorly-controlled hypertension 6. Diabetes type 2 with nephropathy 7. Proteinuria, nephrotic range 8.hypernatremia Assessment/Plan Plan: Creatinine in Feb 2024 was 1.5 mg/dl . Currently at 2.3 This seems to be his new baseline due to poorly controlled DM . renal ultrasound with no acute findings BP control MRI results noted . Hold SGLT2 inhibitor, MADISON inhibitor and ARB for now . start D51/2 NS as his oral intake has been poor Prognosis guarded Plan discussed with: MADHURI Horton MD Jun 25, 2024 11:29
[2024-06-25] MEDS: D5W/SOD CHL 0.45% 1,000 ML IV SCH (13:03)
--- NOTE | 2024-06-25 19:24 | DVHDSRES ---
Discharge Summary Date of Admission Resident Creating Document: TAYLOR BROWN RESIDENT Jun 17, 2024 at 15:36 Date of Discharge: Jun 25, 2024 Admitting Diagnosis Acute ischemic stroke left occipital Right-sided weakness Permissive hypertension ? Uncontrolled hypertension NSTEMI likely type 2 ?Acute exacerbation of heart failure with preserved ejection fraction Uncontrolled type 2 diabetes mellitus Dyslipidemia ELLIE on CKD likely hemodynamically mediated d/t VMN Hypokalemia Wounds: none Labs/Diagnostic Data: Laboratory Results Test 06/25/24 07:30 06/24/24 06:32 06/22/24 21:18 06/21/24 15:45 Sodium Level 146 mmol/L (136-145) Potassium Level 3.6 mmol/L (3.5-5.1) Chloride Level 112 mmol/L (98-107) Carbon Dioxide Level 24 mmol/L (20-31) Anion Gap 10 (5-15) Blood Urea Nitrogen 26 mg/dL (9-23) Creatinine 2.18 mg/dL (0.700-1.30) Glomerular Filtration Rate Calc 32 mL/min (>90) BUN/Creatinine Ratio 11.9 (10.0-20.0) Serum Glucose 81 mg/dL (74-106) Calcium Level 8.4 mg/dL (8.7-10.4) White Blood Count 9.1 10^3/uL (4.4-10.8) Red Blood Count 4.28 10^6/uL (4.5-5.90) Hemoglobin 12.0 g/dL (13.5-17.5) Hematocrit 36.3 % (41.0-53.0) Mean Corpuscular Volume 84.7 fL (80.0-100.0) Mean Corpuscular Hemoglobin 28.1 pg (28.0-32.0) Mean Corpuscular Hemoglobin Concent 33.1 g/dL (32.0-36.0) Red Cell Distribution Width 13.4 % (11.8-14.3) Platelet Count 186 10^3/uL (140-450) Mean Platelet Volume 11.2 fL (6.9-10.8) Neutrophils (%) (Auto) 60.2 % (37.0-80.0) Lymphocytes (%) (Auto) 24.3 % (10.0-50.0) Monocytes (%) (Auto) 9.2 % (0.0-12.0) Eosinophils (%) (Auto) 5.5 % (0.0-7.0) Basophils (%) (Auto) 0.8 % (0.0-2.0) Neutrophils # (Auto) 5.5 10 ^3/uL (1.6-8.6) Lymphocytes # (Auto) 2.2 10 ^3/uL (0.4-5.4) Monocytes # (Auto) 0.8 10 ^3/uL (0-1.3) Eosinophils # (Auto) 0.5 10 ^3/uL (0-0.8) Basophils # (Auto) 0.1 10 ^3/uL (0-0.2) Nucleated Red Blood Cells 0.2 % Platelet Estimate Adequate Large Platelets Few Giant Platelets Few Total Bilirubin 0.4 mg/dL (0.2-1.0) Aspartate Amino Transferase (AST) 39 U/L (13-40) Alanine Aminotransferase (ALT) 28 U/L (7-40) Alkaline Phosphatase 67 U/L (46-116) Total Protein 5.8 g/dL (5.7-8.2) Albumin 3.4 g/dL (3.2-4.8) POC Glucose 126 mg/dl (70-106) Urine Sodium 44 mmol/L (40-220) Test 06/17/24 16:04 06/17/24 14:45 06/17/24 10:36 Urine Color Light-yellow (Yellow) Urine Clarity Clear (Clear) Urine pH 7.5 (5.0-9.0) Urine Specific Warren 1.011 (1.001-1.035) Urine Protein 2+ (Negative) Urine Ketones 1+ (Negative) Urine Blood 1+ /uL (Negative) Urine Nitrite Negative (Negative) Urine Bilirubin Negative (Negative) Urine Urobilinogen Normal mg/dL (Negative) Urine Leukocyte Esterase Negative /uL (Negative) Urine RBC 1 /hpf (0 - 3) Urine WBC <1 /hpf (0 - 3) Urine Squamous Epithelial Cells None seen /hpf (<5) Urine Bacteria None seen /hpf (None Seen) Urine Creatinine 51.06 mg/dL (30.0-125.0) Urine Protein/Creatinine Ratio 6.55 Urine Glucose 1+ mg/dL (Normal) Urine Total Protein 334.4 mg/dL (1-14) Urine Opiates Screen Neg (NEGATIVE) Urine Fentanyl Screen Neg (NEGATIVE) Urine Barbiturates Screen Neg (NEGATIVE) Urine Phencyclidine Screen Neg (NEGATIVE) Urine Amphetamines Screen Neg (NEGATIVE) Urine Benzodiazepines Screen Neg (NEGATIVE) Urine Cocaine Screen Neg (NEGATIVE) Urine Cannabinoids Screen Neg (NEGATIVE) Troponin I High Sensitivity 67 ng/L (</=54) Prothrombin Time 11.3 sec (9.3-11.8) Prothrombin Time INR 1.07 (0.9-1.15) Activated Partial Thromboplast Time 28.9 SEC (24.5-34.5) Hemoglobin A1c 7.0 % A1C (<5.7) Magnesium Level 2.0 mg/dL (1.6-2.6) B-Type Natriuretic Peptide 545.06 pg/mL (0-100) Triglycerides Level 137 mg/dL (< 150) Cholesterol Level 207 mg/dL (< 200) LDL Cholesterol 145 mg/dL (< 100) HDL Cholesterol 47 mg/dL (40-59) Vitamin B12 Level 715 pg/mL (211-911) Folic Acid 12.74 ng/mL (>5.38) Thyroid Stimulating Hormone (TSH) 2.29 uIU/mL (0.55-4.78) Plasma/Serum Blood Alcohol < 3.0 mg/dL (<10) Other Laboratory Tests 06/25/24 07:30 06/24/24 06:32 Brief Hx & Hospital Course: Patient was a 59-year-old male with a past medical history of type 2 diabetes mellitus, hypertension, hyperlipidemia was brought to the ED with a chief complaint of right-sided weakness and altered level of consciousness. History was obtained from patient's son Luisito Durham who reports that patient has a history of stroke a year ago with residual left-sided weakness and since then he has been using the wheelchair for ambulation and has been getting physical therapy. He reports that the patient was at home with his mother while he was at work and on Saturday night patient fell out of the wheelchair and since then reportedly has had right-sided weakness with confusion. Son came back from work last night so that his father was more confused and in the morning he looked worse following which he was brought to the hospital for further evaluation. Past medical history: Stroke 1 year ago with residual left-sided weakness, hypertension, type 2 diabetes mellitus, hyperlipidemia Past surgical history: Bilateral total knee replacement Social history: Patient lives with family and is not reported to be smoking, using illicit drugs. Home medications: As per the records, carvedilol 25 mg b.i.d., nifedipine 60 mg q.d., lisinopril 20 mg, atorvastatin 20 mg Hospital course Patient was the hospital with a chief complaint of worsening level of consciousness and had new right-sided weakness. CT head showed hypodense changes in the medial left temporal occipital lobes with loss of fuentes-white matter differentiation likely acute to subacute. Brain MRI without contrast was done which showed large subacute left occipital infarct with subacute ischemia in the left basal ganglia. Patient was started on aspirin and high-dose atorvastatin and was who have closer hypertension for the next 24 hours. Blood pressure control was achieved starting with nifedipine and eventually increasing the dose and adding carvedilol. Physical therapy evaluated the patient and recommended placing the patient long term facility for physical therapy rehabilitation to which the family agreed. Patient was noted to have elevated serum creatinine and low GFR following which nephrology were consulted who assessed the patient and recommended the changes were likely chronic and the creatinine and GFR levels most likely his new baseline. Patient was agitated and had to be with a sitter. Before being discharged with a snf patient was without a sitter for 24 hours. Discharge disposition: SNF for physical therapy re habilitation Medications: Aspirin 81 mg, atorvastatin 80 mg, carvedilol 25 mg b.i.d., nifedipine 60 mg Consults/Reason for consult Neurology consultation for acute stroke Nephrology consultation for ELLIE on CKD Operations or Procedures CT strokes CTH FINDINGS: There is a moderate size area of hypodense changes in the medial leftt occipital and medial posterior temporal lobes with loss of fuentes-white matter differentiation. The findings are compatible with an age-indeterminate infarct, presumed to be acute to subacute. There is a chronic infarct extending from the right chapman radiata into the right basal ganglia. There also likely small chronic infarcts in the right and left posterior cerebellum. There are patchy hypodense changes in the supratentorial white matter compatible with chronic small-vessel ischemic changes. There is no evidence of acute intracranial hemorrhage, mass, mass effect midline shift. There is no hydrocephalus or extra-axial fluid collection. There is complete opacification of the right paranasal sinuses and right nasal cavity. There is also prominent retention cysts in the left maxillary sinus. The mastoid air cells are clear. The calvarium is intact. IMPRESSION: 1. Moderate size area of hypodense changes in the medial left temporal occipital lobes with loss of fuentes-white matter differentiation compatible with age- indeterminate infarct, presumed to be acute to subacute. There is no evidence of acute intracranial hemorrhage. 2. Chronic ischemic changes as described above. 3. Paranasal sinus disease. MRI Brain with contrast FINDINGS: Large subacute left occipital and basal ganglia infarct. There is no evidence of acute intracranial hemorrhage, extra-axial collection, mass effect, midline shift, herniation or hydrocephalus. The ventricles, sulci and cisterns appear age appropriate. [id number] changes of chronic microvascular ischemic disease. Scattered foci blooming artifact in the bilateral basal ganglia. The major vascular flow voids are present. Chronic frontal ethmoidal and maxillary sinus disease. The surrounding soft tissues and osseous structures are unremarkable. IMPRESSION: Large subacute left occipital infarct with a smaller focus of subacute ischemia in the left basal ganglia. No evidence of hemorrhagic complication at this time. Recommend clinical correlation and continued follow-up. [id number] changes chronic microvascular ischemic disease. Blooming artifact in the bilateral basal ganglia could be related to microangiopathy. Chronic severe pansinusitis. Carotid Doppler IMPRESSION: 1. Less than 50% stenosis of the right internal carotid artery. 2. Less than 50% stenosis of the left internal carotid artery. 3. High-grade stenosis of the left external carotid artery Repeat brain MRI without contrast (with the patient was agitated and tried to crawl out of the MRI, unsafe) FINDINGS: Left occipital infarct appears enlarged compared to prior. Only diffusion- weighted images were obtained. No other obvious acute finding identified. Right maxillary sinus disease is noted. IMPRESSION: Limited exam. Only diffusion-weighted images were obtained. Left occipital infarct has increased in size compared to prior consistent with ongoing ischemia. No definite other acute finding identified. Recommend clinical correlation and continued follow-up. Condition at Discharge: Fair Final Diagnosis/Problems List Acute ischemic stroke left basal ganglia, subacute left occipital Uncontrolled hypertension NSTEMI likely type 2 ?Acute exacerbation of heart failure with preserved ejection fraction Uncontrolled type 2 diabetes mellitus HbA1c 7% Dyslipidemia ELLIE on CKD likely hemodynamically mediated d/t VMN CKD likely d/t uncontrolled T2DM Hypokalemia Discharge Disposition: [facility] Facility Discharge Instruct/Medications Diet: Regular Activity: No Restrictions, As Tolerated Follow Up/Referral: Patient is being discharged to SNF for physcial therapy rehab Follow up in the d/c clinic after being sent home from SNF Medications: as per SNF d/c paperwork Discharge Statement: "Patient was advised to return to the ER or call 911 if any headaches, dizziness, shortness of breath, chest pain, abdominal pain, bleeding, fevers, or worsening of medical condition. Patient was counseled about treatment plan, medications, possible side effects, patientverbalized understanding. All questions were answered to the best of my ability. This discharge took greater then 30 minutes in planning, reviewing documentation, counseling the patient, and discussing with other team members." ASSESSMENT ASSESSMENT Assessment Acute ischemic stroke left basal ganglia, subacute left occipital Uncontrolled hypertension NSTEMI likely type 2 ?Acute exacerbation of heart failure with preserved ejection fraction Uncontrolled type 2 diabetes mellitus HbA1c 7% Dyslipidemia ELLIE on CKD likely hemodynamically mediated d/t VMN CKD likely d/t uncontrolled T2DM Hypokalemia Date of Service: Jun 25, 2024 Billing Provider: JOHN CLARKE MD Common Visit Codes: 15877-JKD/OBS DISCH DAY >30min TAYLOR BROWN RESIDENT Jun 25, 2024 19:24 JOHN CLARKE MD Jun 26, 2024 07:20
[2024-06-26 01:01] VITALS: BP 146/53; PULSE 69; RESP 18; TEMP 97.9; O2SAT 93
[2024-06-26 05:08] VITALS: BP 169/77; PULSE 70; RESP 19; TEMP 98; O2SAT 92
[2024-06-26 08:00] VITALS: PULSE 73
[2024-06-26 09:00] VITALS: BP 173/68; PULSE 79; RESP 19; TEMP 99; O2SAT 96
--- NOTE | 2024-06-26 09:23 | DVHPN2 ---
Progress Note - Dictate Date Seen: Jun 25, 2024 Medical Necessity Reason Pt with a Central, PICC or Fol: No Subjective Mr. Herminio Gale is a 69 years old right-handed gentleman with a history of hypertension, diabetes, dyslipidemia, chronic stroke with residual left-sided weakness, the patient was was brought to the [facility] on 06/17/2024 with a chief company of left-sided numbness. I have seen and examined the patient in the morning on 06/25/24, I have talked to his nurse, megan. He was doing better, he was oriented to person, but he talked more and he follows, on physical examination, he claimed that he was able to see my hands on both side. He moves the arms and legs more UDS, 06/17/2024: Negative Plasma alcohol, 06/17/2024: 3 Urinalysis, 06/17/2024: Unremarkable CBC, 06/17/2024: Unremarkable PTT/INR/PTT, 06/17/2024: 11.3/1.07/28.9 BUN/CR, 06/17/2024: 24/2.24, 06/08/2024: 25/2.34 HGB A1c, 06/17/2024: 7 Liver function tests, 06/17/2024: Unremarkable Vitamin B12, 06/17/2024: 715 Folic acid, 06/17/2024: 12.74 TSH, 06/2024: 2.29 TG/HDL/LDL/HDL, 06/17/2024: 137/207/145/47 UMM, 06/19/2024: Left Ventricle: Normal LV size and function, LVEF estimated at 60% Right Ventricle: NOrmal RV size and function Left atrium: enlarged, smoke in LA Right atrium: mild enlarged Left atrial appendage: no thrombus noted, decreased velocity on PW monitoring Aortic valve: trileaflet valve, no severe or AI Mitral Valve: structurally normal, mild to moderate mitral regurg, no MS Tricuspid Valve: mild tricuspid regurg, no TS Pulmonic Valve: strucutrally normal, no severe PIor PS Interatrial septum: negative color flow for R to L shunt, negative bubble study Ascending aorta: no severe plaquing mild atheromatous disease Echocardiogram, 06/18/2024: Normal left ventricular size and systolic function. Mild concentric left ventricular hypertrophy with grade II diastolic dysfunction. Normal right ventricular size and systolic function. No hemodynamically significant valvular disease. No evidence of shunting based on bubble study. PA systolic pressure is not adequately estimated Carotid Doppler, 06/17/2024: 1. Less than 50% stenosis of the right internal carotid artery. 2. Less than 50% stenosis of the left internal carotid artery. 3. High-grade stenosis of the left external carotid artery. CT head, 06/17/2024: 1. Moderate size area of hypodense changes in the medial left temporal occipital lobes with loss of fuentes-white matter differentiation compatible with age-indeterminate infarct, presumed to be acute to subacute. There is no evidence of acute intracranial hemorrhage. 2. Chronic ischemic changes as described above. 3. Paranasal sinus disease (There is a chronic infarct extending from the right chapman radiata into the right basal ganglia. There also likely small chronic infarcts in the right and left posterior cerebellum.) MRI head, 06/17/2024: 1. Large subacute left occipital infarct with a smaller focus of subacute ischemia in the left basal ganglia. No evidence of hemorrhagic complication at this time. Recommend clinical correlation and continued follow- up. [id number] changes chronic microvascular ischemic disease. Blooming artifact in the bilateral basal ganglia could be related to microangiopathy. Chronic severe pansinusitis MRI brain, 06/22/2024: 1. Limited exam. Only diffusion-weighted images were obtained. Left occipital infarct has increased in size compared to prior consistent with ongoing ischemia. No definite other acute finding identified. Recommend clinical correlation and continued follow-up. vital signs Vital Sign Date Time Temp Pulse Resp B/P (MAP) Pulse Ox O2 Delivery O2 Flow Rate FiO2 06/26/24 05:08 98.0 70 19 169/77 (107) 92 98.0 06/25/24 20:00 Room Air* 0 21 Total Intake and Output 06/25/24 06/25/24 06/26/24 14:59 22:59 06:59 Intake Total 240 ml 1170 ml 890 ml Output Total 450 ml 550 ml Balance 240 ml 720 ml 340 ml medications Current Medications Medications Dose Ordered Sig/Nova Route Start Time Stop Time Status Last Admin Dose Admin Aspirin 81 mg DAILY PO 06/18/24 10:00 06/25/24 09:57 81 MG Atorvastatin Calcium 80 mg HS PO 06/17/24 22:00 06/25/24 21:46 80 MG Enoxaparin Sodium 40 mg DAILY SC 06/18/24 10:00 UNV Enoxaparin Sodium 30 mg DAILY SC 06/18/24 10:00 06/25/24 09:59 30 MG Carvedilol 25 mg Q12HR PO 06/22/24 10:00 06/25/24 21:46 25 MG Haloperidol Lactate 2.5 mg Q8HP PRN IM 06/23/24 06:45 Dextrose/Sodium Chloride 1,000 ml @ 50 mls/hr Q20H IV 06/25/24 11:30 06/26/24 07:20 50 MLS/HR Nifedipine 90 mg DAILY PO 06/26/24 08:30 objective General: the patient is well developed and nourished. No acute distress. MENTAL STATUS: Subjective SPEECH, LANGUAGE, HIGHER CORTICAL FUNCTION: no aphasia, he has dysathria. CRANIAL NERVES: Pupils are equal, round and reactive. EOMs full and conjugate. Facial sensation intact in all three divisions bilaterally. Mandibular strength intact. Facial muscles symmetrical and strength intact. SENSATION: Sensation to touch and pinprick is unremarkable MOTOR: Normal tone in the upper and lower extremity. Normal muscle bulk. No fasciculations. No abnormal movements or posturing. Subjective REFLEXES: Deep tendon reflexes are symmetrical. No pathological reflexes. CEREBELLAR/COORDINATION: Deferred GAIT/STATION: deferred laboratory and microbiology Laboratory Tests 06/25/24 07:30 06/24/24 06:32 Test 06/25/24 07:30 Range/Units Serum Glucose 81 74-106 mg/dL Problem List Acute stroke with acute right-sided weakness ? right homonymous hemianopsia Chronic stroke with residual left-sided weakness Altered mental status, cognitive dysfunction Metabolic encephalopathy Partial complex seizure The mental status looks worse today ? Enlarged acute stroke ? Fluctuating of mental status/encephalopathy Assessment/Plan Monitoring Supportive treatment Telemetry EEG Aspirin 81 mg daily Lipitor 80 mg daily Haldol 2.5 mg intramuscular Q 8 hours p.r.n. for agitation DVT prophylaxis/Lovenox Sitter More recommendation per clinical course This medical document was created using an electronic medical record system with [employer] system. Although this document has been carefully reviewed, there may still be some phonetic and typographical errors. These areas are purely typographical due to imperfections of the software programs, and do not reflect any compromise in the patient's medical care. Prognosis poor Plan discussed with: Other SALOME OLMEDO MD Jun 26, 2024 09:23
[2024-06-26] MEDS: NIFEdipine ER 30 MG TAB PO SCH (10:00)
--- NOTE | 2024-06-26 10:50 | DVHPN2 ---
Progress Note - Dictate Date Seen: Jun 26, 2024 Medical Necessity Reason Pt with a Central, PICC or Fol: No Subjective No new complaints vital signs Vital Sign Date Time Temp Pulse Resp B/P (MAP) Pulse Ox O2 Delivery O2 Flow Rate FiO2 06/26/24 10:35 173/68 06/26/24 10:35 79 06/26/24 07:40 Room Air* 0 21 06/26/24 05:08 98.0 19 92 98.0 Total Intake and Output 06/25/24 06/25/24 06/26/24 15:00 23:00 07:00 Intake Total 240 ml 1170 ml 890 ml Output Total 450 ml 550 ml Balance 240 ml 720 ml 340 ml medications Current Medications Medications Dose Ordered Sig/Nova Route Start Time Stop Time Status Last Admin Dose Admin Aspirin 81 mg DAILY PO 06/18/24 10:00 06/26/24 10:36 81 MG Atorvastatin Calcium 80 mg HS PO 06/17/24 22:00 06/25/24 21:46 80 MG Enoxaparin Sodium 40 mg DAILY SC 06/18/24 10:00 UNV Enoxaparin Sodium 30 mg DAILY SC 06/18/24 10:00 06/26/24 10:36 30 MG Carvedilol 25 mg Q12HR PO 06/22/24 10:00 06/26/24 10:35 25 MG Haloperidol Lactate 2.5 mg Q8HP PRN IM 06/23/24 06:45 Dextrose/Sodium Chloride 1,000 ml @ 50 mls/hr Q20H IV 06/25/24 11:30 06/26/24 07:20 50 MLS/HR Nifedipine 90 mg DAILY PO 06/26/24 08:30 06/26/24 10:35 90 MG objective HEENT: No evidence of JVD, no oral ulcers. Pulmonary: Lungs are clear on auscultation bilaterally Cardiovascular S1-S2, no S3 or S4 Abdomen: Bowel sounds positive, soft no rebound tenderness Skin: No rash Neurological: right-sided hemiparesis laboratory and microbiology Laboratory Tests 06/25/24 07:30 06/24/24 06:32 Test 06/25/24 07:30 Range/Units Serum Glucose 81 74-106 mg/dL Problem List Problem List 1. Acute kidney injury superimposed on chronic kidney disease . 2. Hypokalemia 3. Acute left occipital ischemic CVA with recent MRI showing increase in size of infarct 4. Right-sided hemiparesis 5. Poorly-controlled hypertension 6. Diabetes type 2 with nephropathy 7. Proteinuria, nephrotic range 8.hypernatremia Assessment/Plan Plan: Creatinine in Feb 2024 was 1.5 mg/dl . This seems to be his new baseline due to poorly controlled DM . renal ultrasound with no acute findings BP control MRI results noted . Hold SGLT2 inhibitor, MADISON inhibitor and ARB for now . Maintain IVF due to poor oral intake Prognosis guarded Plan discussed with: Patient KELVIN LAMB MD Jun 26, 2024 10:50
[2024-06-26 13:00] VITALS: BP 144/51; PULSE 69; RESP 19; TEMP 98.9; O2SAT 97
--- NOTE | 2024-06-26 14:17 | DVHPNRES ---
Progress Note Date Seen: Jun 26, 2024 Resident Creating Document: TAYLOR BROWN RESIDENT Medical Necessity Reason Pt with a Central, PICC or Fol: No Subjective Review of Systems Patient was alert and oriented X 1 at the time of examination.. Denies chest pain, shortness of breath denies nausea, vomiting, diarrhea. Has poor vision bilaterally Objective vital signs Vital Sign Date Time Temp Pulse Resp B/P (MAP) Pulse Ox O2 Delivery O2 Flow Rate FiO2 06/26/24 13:00 98.9 69 19 144/51 (82) 97 98.9 06/26/24 07:40 Room Air* 0 21 Total Intake and Output 06/25/24 06/25/24 06/26/24 15:00 23:00 07:00 Intake Total 240 ml 1170 ml 890 ml Output Total 450 ml 550 ml Balance 240 ml 720 ml 340 ml medications Current Medications Medications Dose Ordered Sig/Nova Route Start Time Stop Time Status Last Admin Dose Admin Aspirin 81 mg DAILY PO 06/18/24 10:00 06/26/24 10:36 81 MG Atorvastatin Calcium 80 mg HS PO 06/17/24 22:00 06/25/24 21:46 80 MG Enoxaparin Sodium 40 mg DAILY SC 06/18/24 10:00 UNV Enoxaparin Sodium 30 mg DAILY SC 06/18/24 10:00 06/26/24 10:36 30 MG Carvedilol 25 mg Q12HR PO 06/22/24 10:00 06/26/24 10:35 25 MG Haloperidol Lactate 2.5 mg Q8HP PRN IM 06/23/24 06:45 Dextrose/Sodium Chloride 1,000 ml @ 50 mls/hr Q20H IV 06/25/24 11:30 06/26/24 07:20 50 MLS/HR Nifedipine 90 mg DAILY PO 06/26/24 08:30 06/26/24 10:35 90 MG Examination Constitutional: Patient alert and oriented x1 and does not appear to be in any acute distress. Gen - no pallor, no icterus, no cyanosis, no clubbing, no LAD, 2+ edema in both the feet Skin - Patients skin is warm and dry. HEENT - normocephalic, atraumatic, moist mucous membranes. Neck - full ROM, no LAD, no JVD Pulmonary - B/L vesicular breath sounds. no crackles , no wheezing, no stridor. cardiovascular - normal S1,S2 heard. no murmurs heard. GI - soft abdomen. no hepatospleenomegaly. Bowel sounds normoactive Neurological - Right upper extremity strength 3/5, left upper extremity strength 4/5, right lower extremity strength 3/5, left lower extremity strength 4/5, no sensory deficiets. - limited exam finding as the patient was confused Cranial nerve 2- visual acuity in both left and right eye is decreased, not able to count fingers correctly Cranial nerve 3, 4, 6- extraocular movements within normal range Cranial nerve 5- facial sensation intact, jaw of opening normal Cranial nerve 7- no facial droop, , normal eye closing, Cranial nerve 8- hearing normal Cranial nerve 12- no tongue deviat laboratory and microbiology Laboratory Tests 06/25/24 07:30 06/24/24 06:32 Test 06/25/24 07:30 Range/Units Serum Glucose 81 74-106 mg/dL Problem List/Assessment/Plan Problem List/Assessment/Plan Acute ischemic stroke left basal ganglia, subacute right occipital Right-sided weakness CT head without contrast showed 1.Moderate size area of hypodense changes in the medial left temporal occipital lobes with loss of fuentes-white matter differentiation compatible with age- indeterminate infarct, presumed to be acute to subacute. There is no evidence of acute intracranial hemorrhage. 2.chronic infarct extending from the right chapman radiata into the right basal ganglia Brain MRI showed Large subacute left occipital infarct with a smaller focus of subacute ischemia in the left basal ganglia. No evidence of hemorrhagic complication at this time. [id number] changes chronic microvascular ischemic disease. Blooming artifact in the bilateral basal ganglia could be related to microangiopathy Carotid doppler shows 1. Less than 50% stenosis of the right internal carotid artery. 2. Less than 50% stenosis of the left internal carotid artery. 3. High-grade stenosis of the left external carotid artery. - aspirin 81 mg - stroke beyond the window period for thrombolysis - atorvastatin 80 mg - UMM done today FINDINGS: Left Ventricle: Normal LV size and function, LVEF estimated at 60% Right Ventricle: NOrmal RV size and function Left atrium: enlarged, smoke in LA Right atrium: mild enlarged Left atrial appendage: no thrombus noted, decreased velocity on PW monitoring Aortic valve: trileaflet valve, no severe or AI Mitral Valve: structurally normal, mild to moderate mitral regurg, no MS Tricuspid Valve: mild tricuspid regurg, no TS Pulmonic Valve: strucutrally normal, no severe PIor PS Interatrial septum: negative color flow for R to L shunt, negative bubble study Ascending aorta: no severe plaquing mild atheromatous disease - physical therapy evaluation done, recommend SNF at discharge - Swallow evaluation done, patient cleared for mechanical soft diet - 06/22- MRI brain ordered but the patient came out of the MRI and it was not completed. Dr Teixeira informed. Permissive hypertension ? Uncontrolled hypertension NSTEMI likely type 2 ?Acute exacerbation of heart failure with preserved ejection fraction - ECG showed no acute ST segment or T-wave changes - troponins trended 74-> 68-> 67 - nifedipine increased to 90 mg and increased carvedilol to 25 mg b.i.d. - goal blood pressure SBP<= 160 mmHg Uncontrolled type 2 diabetes mellitus HbA1c 7% - patient's blood glucose was in control without insulin for 2 days, ISS d/janusz Dyslipidemia On atorvastatin 80 mg HS ELLIE on CKD likely hemodynamically mediated d/t VMN - FENa 4.6% - blood pressure control - nephrology consulted and assessed that the patient likely had CKD and the kidney function seems to be his new normal d/t uncontrolled T2DM Hypokalemia Replaced Patient will be discharged to SNF for physical therapy. 06/24/24 Sitter discontinued as the patient is calm today. Patient was discharged to SNF on 06/25/24 but the SNF did not have a bed available and the patient will be transferred to the facility today in stable condition. All paperwork filled and signed Goals of care discussed with the patient and the family for over 21minutes. Full code Plan discussed with Plan discussed with: Patient, Spouse, Other (RN ( donal )) My Orders My Orders Orders - TAYLOR BROWN RESIDENT Procedure Category Date Status Time Nifedipine Er PHA 06/26/24 In Process (Procardia Xl 08:30 Date of Service: Jun 26, 2024 Billing Provider: JOHN CLARKE MD Common Visit Codes: [id number] INP/OBS CARE(HIGH) TAYLOR BROWN RESIDENT Jun 26, 2024 14:17 JOHN CLARKE MD Jun 27, 2024 09:19
[2024-06-26 17:00] VITALS: BP 160/59; PULSE 72; RESP 19; TEMP 98.3; O2SAT 94
[2024-06-26] MEDS: hydrALAZINE HCL 25 MG TAB PO ONE (17:29)
--- NOTE | 2024-06-26 22:23 | DVHEEG2 ---
Neurology EEG Procedural Note Procedural Note EXAM DATE: 06/24/2024 REFERRING DOCTOR: Dr. Olmedo TECHNIQUE: Eighteen channels of EEG, 2 channels of EOG, and 1 channel of EKG were recorded using the International 10/20 system. CLINICAL DATA: The patient was referred for an EEG evaluation for the evidence of seizure disorder. MEDICATIONS: See chart BACKGROUND ACTIVITY: While the patient was awake, the background activity consisted of well regulated 8-9 Hz rhythmic waveforms, symmetrically distributed over both posterior quadrants and was reactive to eye opening. ACTIVATION: Hyperventilation: Not done Photic Stimulation: Not done Sleep: Noticed IMPRESSION: This is a normal EEG. No focal, lateralized, or epileptiform features are noted. If clinically indicated to rule out a seizure disorder, recommend repeat EEG with sleep deprivation. The EKG channel showed a regular heart rate of 66/minute. [place] [address] SALOME OLMEDO MD Jun 26, 2024 22:23
== END 2024-06-26 18:17 | DRG 64 ==
LOC: ER 10:03 → TELE 15:36 → TELE-WESTW 16:03 → TELE-EAST 06-19 16:04 → EAST 06-26 04:27
PROVIDERS: ADMIT Internal Medicine; ATTEND Internal Medicine
PROC: B24BZZ4 Ultrasonography of Heart with Aorta, Transesophageal (ICD-10-PCS; principal; 2024-06-19)
DX: I63.9 Cerebral infarction, unspecified (principal); G93.41 Metabolic encephalopathy; I21.A1 Myocardial infarction type 2; N17.0 Acute kidney failure with tubular necrosis; I50.31 Acute diastolic (congestive) heart failure; I13.0 Hypertensive heart and chronic kidney disease with heart failure and stage 1 through stage 4 chronic kidney disease, or unspecified chronic kidney disease; G40.209 Localization-related (focal) (partial) symptomatic epilepsy and epileptic syndromes with complex partial seizures, not intractable, without status epilepticus; G81.91 Hemiplegia, unspecified affecting right dominant side; E11.22 Type 2 diabetes mellitus with diabetic chronic kidney disease; E66.9 Obesity, unspecified; I08.1 Rheumatic disorders of both mitral and tricuspid valves; E78.5 Hyperlipidemia, unspecified; N18.31 Chronic kidney disease, stage 3a; Z96.653 Presence of artificial knee joint, bilateral; E87.6 Hypokalemia; Z79.84 Long term (current) use of oral hypoglycemic drugs; Z82.49 Family history of ischemic heart disease and other diseases of the circulatory system; Z79.82 Long term (current) use of aspirin; Z79.899 Other long term (current) drug therapy; Z68.27 Body mass index [BMI] 27.0-27.9, adult; Z79.4 Long term (current) use of insulin; Z83.3 Family history of diabetes mellitus
CPT/HCPCS: 36415; 70450; 70551; 71045; 76775; 80048; 80053; 80061; 80307; 80320; 81001; 82570; 82607; 82746; 82962; 83036; 83735; 83880; 84156; 84300; 84443; 84484; 85025; 85610; 85730; 92610; 93005; 93306; 93312; 93886; 93925; 95819; 97110; 97116; 97163; 97530; 99152; 99291; G0378; J2250